=== PATIENT | female | born 1960 | race Caucasian/White ===

== ENCOUNTER 2017-03-12 12:18 | Emergency (ER) | payer MEDICARE, OTHER ==
[~2017-03-12] VITALS: Ht 177.8 cm; Wt 62.0 kg
[~2017-03-12 12:18] MED LIST: MORP30SU PO; MSIR15 PO
[2017-03-12 12:20] VITALS: BP 138/82; PULSE 104; RESP 16; TEMP 98.4; O2SAT 94
[2017-03-12] MEDS ORDERED: IBUP1TAB7 PO (12:39)
[2017-03-12] MEDS ORDERED: TRAZ100T10 PO (12:39)
[2017-03-12] MEDS ORDERED: TYLE325T PO (12:39)
--- NOTE | 2017-03-12 12:45 | PD ---
HPI Chief Complaint: Lump, Cyst, Hernia Time Seen by Provider: 12:45 Travel History International Travel<30 days: No Contact w/Intl Traveler<30days: No Traveled to known affect area: No History of Present Illness HPI 56-year-old female presents to emergency department complaining of a lump to her right armpit/ outer breast area she noticed one week ago. 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 Denies fever, vomiting. Denies drainage from the site. Has been taking Tylenol and ibuprofen for symptom management. Rates pain 8/10. Describes as a throbbing sensation. Pain is worse with movement of the right arm and palpation. Pain is decreased with movement of the right arm. Allergies to sulfa. Has no other medical complaints. Does not have an established primary care provider at this time. No other modifying factors or associated signs and symptoms. PFSH Past Medical History Heart Rhythm Problems: Yes Cardiovascular Problems: Yes (SVT) ?: Not Past Surgical History Cardiac Surgery: Yes (SVT ABLATION) Hysterectomy: Yes Social History Alcohol Use: No Tobacco Use: Yes Substance Use: No Allergies-Medications (Allergen,Severity, Reaction): Coded Allergies: Sulfa (Sulfonamide Antibiotics) (Unverified Allergy, Severe, 03/12/17) Reported Meds & Prescriptions Reported Meds & Active Scripts Active Clindamycin (Clindamycin HCl) 150 Mg Cap 450 Mg PO Q6H 10 Days Doxycycline Hyclate 100 Mg Cap 100 Mg PO DAILY 10 Days Reported Tylenol (Acetaminophen) 325 Mg Tab 650 Mg PO Q4H PRN Trazodone (Trazodone HCl) 100 Mg Tablet 100 Mg PO HS Ibuprofen 800 Mg Tab 800 Mg PO Q8H PRN Review of Systems Except as stated in HPI: all other systems reviewed are Neg Physical Exam Narrative GENERAL: Well-nourished, well-developed female patient, in no acute distress; afebrile, nontoxic-appearing SKIN: There is an indurated area to the right outer axillary/outer breast area which measures about 2 cm in diameter. It is nonfluctuant and there is no pointing or drainage. There is a zone of inflammation around it but no lymphangitis. HEAD: Atraumatic. Normocephalic. EYES: Pupils equal and round. No scleral icterus. No injection or drainage. ENT: Mucosa pink and moist. Airway patent. NECK: Trachea midline. CARDIOVASCULAR: Regular rate. RESPIRATORY: No accessory muscle use. GASTROINTESTINAL: Flat. MUSCULOSKELETAL: No obvious deformities. No clubbing. No cyanosis. No edema. NEUROLOGICAL: Awake and alert. Oriented 3. No obvious cranial nerve deficits. Motor grossly within normal limits. Normal speech. PSYCHIATRIC: Appropriate mood and affect; insight and judgment normal. Data Data Last Documented VS Vital Signs Date Time Temp Pulse Resp B/P (MAP) Pulse Ox O2 Delivery O2 Flow Rate FiO2 03/12/17 12:40 17 03/12/17 12:20 98.4 104 138/82 (100) 94 Orders Orders Ed Discharge Order (03/12/17 12:54) [facility] Medical Decision Making Medical Screen Exam Complete: Yes Emergency Medical Condition: Yes Medical Record Reviewed: Yes Differential Diagnosis Abscess, cellulitis, MRSA Narrative Course 56-year-old female with cellulitis to the right axillary, outer breast area. History of MRSA and takes doxycycline daily. Patient is afebrile and nontoxic appearing. Denies fever, vomiting. Dr. Medley evaluated patient and recommends the patient to return to emergency Department in 2 days for reevaluation and to increase doxycycline to 100 mg twice daily and add clindamycin. Doxycycline and clindamycin prescribed for home. Instructed patient to return to the emergency department in 48 hours for reevaluation the patient verbalized understanding and agreement. Instructed patient to follow up with primary care provider. Patient verbalizes understanding and agreement with treatment plan. Patient is medically cleared and stable for discharge. Discussed reasons to return to the emergency department. Patient agrees with treatment plan. The patients vital signs are stable and the patient is stable for outpatient follow- up and treatment. Patient discharged home, stable and in no acute distress. Diagnosis Primary Impression: Cellulitis of right axilla Referrals: [facility] Primary Care Physician Patient Instructions: Cellulitis (ED), General Instructions Additional Instructions: Complete full course of antibiotics; increased doxycycline to 100 mg twice a day ; and take clindamycin as prescribed Warm compresses to the affected area Keep area clean and dry Ibuprofen or Tylenol as directed and as needed for pain and inflammation Return to the emergency department in 48 hours for recheck Follow-up with primary care provider Return to emergency department immediately with worsening of symptoms Med/Other Pt SpecificInfo: Prescription(s) given Scripts Clindamycin (Clindamycin) 150 Mg Cap 450 MG PO Q6H for Infection for 10 Days, #120 CAP 0 Refills Prov: Lali Snyder 03/12/17 Doxycycline Hyclate (Doxycycline Hyclate) 100 Mg Cap 100 MG PO DAILY for Infection for 10 Days, #10 CAP 0 Refills Prov: Lali Snyder 03/12/17 Disposition: 01 DISCHARGE HOME Condition: Stable Lali Snyder Mar 12, 2017 12:45
[2017-03-12] MEDS ORDERED: CLIN150C14 PO ×2 (12:51→12:53)
[2017-03-12] MEDS ORDERED: DOXY100C PO ×2 (12:51→12:53)
[2017-03-12 13:19] VITALS: BP 150/72
== END 2017-03-12 13:35 | disposition home or self-care (01) ==
LOC: NEPD 12:18
DX: L03.111 Cellulitis of right axilla (principal); Z72.0 Tobacco use
CPT/HCPCS: 99284

== ENCOUNTER 2017-04-03 12:13 | Emergency (ER) | payer MEDICARE, OTHER ==
[~2017-04-03] VITALS: Ht 175.3 cm; Wt 60.0 kg
[~2017-04-03 12:13] MED LIST changes: +CLIN150C14 PO; +DOXY100C PO; +IBUP1TAB7 PO; -MORP30SU PO; -MSIR15 PO; +TRAZ100T10 PO; +TYLE325T PO
--- NOTE | 2017-04-03 12:34 | PD ---
HPI Chief Complaint: Wound/Suture/Staple Re-Check Time Seen by Provider: 12:22 Travel History International Travel<30 days: No Contact w/Intl Traveler<30days: No Traveled to known affect area: No History of Present Illness HPI 56-year-old female presents to the emergency department for evaluation of a cyst in the right axillary region. States she was here previously and received 2 antibiotics for this. Patient has not followed up with a primary care physician as discussed last visit on March 12. Patient states that currently the cyst has decreased in size but feels like "there is a hole" in her armpit. Area is tender to palpation denies drainage. Denies IV drug use or any other illicit drugs. Patient states that "she does not have a shoulder joint" and is unable to move her right shoulder. Patient denies fevers but feels "very cold" . Overall says that she feels better than previously. She continues to take doxycycline daily. Patient is here with mother today. PFSH Past Medical History Heart Rhythm Problems: Yes Cardiovascular Problems: Yes (SVT) ?: Not Past Surgical History Cardiac Surgery: Yes (SVT ABLATION) Hysterectomy: Yes Social History Alcohol Use: No Tobacco Use: Yes Substance Use: No Allergies-Medications (Allergen,Severity, Reaction): Coded Allergies: Sulfa (Sulfonamide Antibiotics) (Unverified Allergy, Severe, 03/12/17) Reported Meds & Prescriptions Reported Meds & Active Scripts Active Doxycycline Hyclate 100 Mg Cap 100 Mg PO DAILY 10 Days Reported Tylenol (Acetaminophen) 325 Mg Tab 650 Mg PO Q4H PRN Trazodone (Trazodone HCl) 100 Mg Tablet 100 Mg PO HS Ibuprofen 800 Mg Tab 800 Mg PO Q8H PRN Review of Systems Except as stated in HPI: all other systems reviewed are Neg Physical Exam Narrative GENERAL: Well-nourished, well-developed patient. SKIN: Focused skin assessment warm/dry. HEAD: Normocephalic. EYES: No scleral icterus. No injection or drainage. NECK: Supple, trachea midline. No JVD or lymphadenopathy. CARDIOVASCULAR: Regular rate and rhythm without murmurs, gallops, or rubs. RESPIRATORY: Breath sounds equal bilaterally. No accessory muscle use. GASTROINTESTINAL: Abdomen soft, non-tender, nondistended. Right axilla- round cyst along the pectoralis muscle non-mobile and tender to palpation. No obvious puncta, erythema, edema, or lymphangitic Spread. Similar cysts along bilateral axilla. MUSCULOSKELETAL: No cyanosis, or edema. BACK: Nontender without obvious deformity. No CVA tenderness. Data Data Orders Orders Ed Discharge Order (04/03/17 12:47) MDM Medical Decision Making Medical Screen Exam Complete: Yes Emergency Medical Condition: Yes Differential Diagnosis right axillary abscess vs cyst vs mass vs hydradenitis suppurativa Narrative Course 56-year-old female presents to the emergency department for evaluation of a cyst in the right axillary region. States she was here previously and received 2 antibiotics for this. Patient has not followed up with a primary care physician as discussed last visit on March 12. Patient states that currently the cyst has decreased in size but feels like "there is a hole" in her armpit. Area is tender to palpation denies drainage. Denies IV drug use or any other illicit drugs. Patient states that "she does not have a shoulder joint" and is unable to move her right shoulder. Patient denies fevers but feels "very cold" . Overall says that she feels better than previously. She continues to take doxycycline daily. Patient is here with mother today. Vital Signs stable Physical exam- multiple wounds over arms. multiple cysts along axilla and tail breast tissue. I did not perform a complete breast exam as her tenderness was focused in the axilla and she denied any concerns about her breast. I did not appreciate the 'hole' pt describes. I asked the patient when she last had a mammogram and she unable to tell me. I STRONGLY advised her to follow up with her primary care physician and get a mammogram. My findings were concerning and I expressedthem to the pt. Because of her chief complaint and improving symptoms, I advised pt follow up with PCP as this is more appropriate at this point. There was no evidence of infectious or acute process. I discussed my findings with Dr. Schmid, my attending. Because of the chronicity, pt needs to follow up as outpatient. Pt understood and will comply. Advised to return for worsening symptoms. Diagnosis Primary Impression: Axillary mass Qualified Codes: R22.31 - Localized swelling, mass and lump, right upper limb [facility] Additional Instructions: Apply warm compresses to the axilla. Follow-up with primary care within 2-3 days. You have been given information for [employer] Continue medications as prescribed. It is imperative he follow up with primary care for definitive treatment. If your symptoms persist or worsen return to the emergency department Disposition: 01 DISCHARGE HOME Condition: Stable Radha Molina Apr 03, 2017 12:34
== END 2017-04-03 13:16 | disposition home or self-care (01) ==
LOC: NEPD 12:13
DX: R22.31 Localized swelling, mass and lump, right upper limb (principal); Z72.0 Tobacco use; Z88.2 Allergy status to sulfonamides; Z79.899 Other long term (current) drug therapy
CPT/HCPCS: 99282

== ENCOUNTER → 2017-05-05 | Outpatient (CLI) | payer MEDICARE, OTHER ==
[~2017-05-05] MED LIST changes: -CLIN150C14 PO
[2017-05-05 10:50] LABS: AUTOMATED NEUTROPHIL # 4.2 TH/MM3 (1.8-7.7); BASOPHIL # 0.1 TH/MM3 (0-0.2); BASOPHIL % 0.7 % (0.0-2.0); EOSINOPHIL # 0.3 TH/MM3 (0-0.4); EOSINOPHIL % 4.6 % (0.0-4.0); HEMATOCRIT 33.3 % (35.0-46.0); HEMO FLAGS DIFF FINAL; LYMPH % 32.4 % (9.0-44.0); LYMPHOCYTE # 2.4 TH/MM3 (1.0-4.8); MEAN CELL VOLUME 79.1 FL (80.0-100.0); MEAN CORPUSCULAR HEMOGLOBIN 25.2 PG (27.0-34.0); MEAN CORPUSCULAR HGB CONC 31.9 % (32.0-36.0); MONO % 6.6 % (0.0-8.0); NEUT % 55.7 % (16.0-70.0); PLATELET COUNT 563 TH/MM3 (150-450); RED BLOOD COUNT 4.21 MIL/MM3 (4.00-5.30); RED CELL DISTRIBUTION WIDTH 17.4 % (11.6-17.2); WHITE BLOOD COUNT 7.6 TH/MM3 (4.0-11.0)
[2017-05-05 11:19] LABS: ALT (GPT) 14 U/L (10-53); ANION GAP 9 MEQ/L (5-15); AST (GOT) 22 U/L (15-37); BICARBONATE 25.7 MEQ/L (21.0-32.0); BLOOD UREA NITROGEN 17 MG/DL (7-18); CHLORIDE 102 MEQ/L (98-107); GLOMERULAR FILTRATION RATE 70 ML/MIN (>89); GLUCOSE,FASTING 143 MG/DL (74-99); POTASSIUM 3.9 MEQ/L (3.5-5.1); SODIUM (NA) 137 MEQ/L (136-145)
[2017-05-05 11:29] LABS: ALKALINE PHOSPHATASE 144 U/L (45-117); HDL CHOLESTEROL 37.9 MG/DL (40.0-60.0); LDL CHOLESTEROL 103 MG/DL (0-99); THYROXINE (T4) 9.5 MCG/DL (4.8-13.9); TOTAL BILIRUBIN ADULT 0.2 MG/DL (0.2-1.0)
[2017-05-05 16:32] LABS: HEMOGLOBIN A1a 1.1 %; HEMOGLOBIN Ao 83.7 %; HEMOGLOBIN LA1C 2.6 %
== END ==
LOC: CLAB 10:18
PROVIDERS: ATTEND Family Medicine
DX: I10 Essential (primary) hypertension (principal); E10.8 Type 1 diabetes mellitus with unspecified complications; E55.9 Vitamin D deficiency, unspecified; E78.2 Mixed hyperlipidemia; E03.8 Other specified hypothyroidism; Z79.899 Other long term (current) drug therapy
CPT/HCPCS: 36415; 80053; 80061; 82306; 83036; 84436; 84443; 84480; 85025

== ENCOUNTER 2017-05-24 12:11 | Observation (INO) | payer MEDICARE, OTHER ==
[~2017-05-24] VITALS: Ht 177.8 cm; Wt 62.5 kg
[2017-05-24 12:14] VITALS: BP 140/90; PULSE 108; RESP 22; TEMP 97.8; O2SAT 100
--- NOTE | 2017-05-24 13:04 | PD ---
Physical Exam Time Seen by Provider: 13:00 Narrative 56yo F tailbone pain and R hip pain after falling approximately 12 feet from her house roof today. 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 Denies hitting head, LOC, neck pain. Denies chest pain, SOB. Denies vomiting. Denies anticoagulant therapy. Patient seen in triage. VS reviewed. Patient taken to medical bed. See next providers note for final patient disposition. Data Data Last Documented VS Vital Signs Date Time Temp Pulse Resp B/P (MAP) Pulse Ox O2 Delivery O2 Flow Rate FiO2 05/24/17 12:14 97.8 108 22 140/90 (107) 100 Room Air MDM Supervised Visit with GARCIA: Lali Dial May 24, 2017 13:04
[2017-05-24] MEDS ORDERED: oxyCODONE/ACETAMINOPHEN 5 MG/325 MG TAB PO ONE (13:30)
[2017-05-24 13:50] VITALS: BP 142/89; PULSE 97; RESP 19; O2SAT 97
--- NOTE | 2017-05-24 14:07 | RADRPT ---
EXAM DATE/TIME: 05/24/2017 13:33 [facility] COMPARISON: No previous studies available for comparison. INDICATIONS : Fell 12 feet from roof, lower back and tailbone pain. RADIATION DOSE: 15.08 CTDIvol (mGy) MEDICAL HISTORY : Cardiovascular disease. Irregular heart rate. SURGICAL HISTORY : Hysterectomy. Cardiac ablation ENCOUNTER: Initial ACUITY: 1 day PAIN SCALE: 10/10 LOCATION: low back TECHNIQUE: Volumetric scanning of the lumbar spine was performed. Multiplanar reconstructions in the sagittal, coronal and oblique axial planes were performed. Using automated exposure control and adjustment of the mA and/or kV according to patient size, radiation dose was kept as low as reasonably achievable t o obtain optimal diagnostic quality images. DICOM format image data is available electronically for review and comparison. FINDINGS: VERTEBRAE: Normal vertebral body height. Degenerative disc changes are present at the L1-2 and L2-3 levels with disc space narrowing and hypertrophic change. ALIGNMENT: No evidence of subluxation. The axial images again demonstrate that the lower thoracic and lumbar vertebral bodies and posterior elements are intact with mild scoliosis. Degenerative disc changes are again noted at the L1-2 and L2 -3 levels with disc osteophyte complexes. There is a comminuted fracture deformity involving the righ t sacrum with multiple fracture lines anteriorly. This extends to the inferior lateral sacrum into th e sacroiliac joint. There is a more subtle nondisplaced fracture involving the left sacral which exte nds obliquely. The iliac wings are intact in appearance. Coccyx is intact as well. The sacroiliac pascual nts are congruent. There is mild scoliosis. CONCLUSION: 1. Bilateral sacral fractures right greater than left. 2. The lumbar vertebral bodies in lower thoracic spine is intact. 3. Mild scoliosis and degenerative disc change. Alejo Fam MD on May 24, 2017 at 13:59 Board Certified Radiologist. This report was verified electronically.
--- NOTE | 2017-05-24 14:15 | RADRPT ---
EXAM DATE/TIME: 05/24/2017 13:54 [facility] COMPARISON: CT LUMBAR SPINE W/O CONTRAST, May 24, 2017, 13:33. INDICATIONS : Right side pelvis pain after fall. Sacral fractures seen on lumbar spine CT MEDICAL HISTORY : None. SURGICAL HISTORY : None. ENCOUNTER: Initial ACUITY: 1 day PAIN SCORE: 10/10 LOCATION: Right Pelvis FINDINGS: A single frontal view of the pelvis was obtained and demonstrates subtle trabecular distortion on the lateral right sacral ala consistent with the known fractures seen on the lumbar CT. The left sacral fracture is not well delineated. The hips are intact and the pubic rami are within normal limits. The re is mild osteopenia. The bowel gas pattern appears unremarkable. The bony pelvic ring is intact. B wilberto mineralization is normal. The soft tissues are intact. CONCLUSION: 1. Visualization of the known right sacral fractures. 2. The known subtle left sacral fracture is not well-visualized. Alejo Fam MD on May 24, 2017 at 14:11 Board Certified Radiologist. This report was verified electronically.
[2017-05-24] MEDS ORDERED: HYDROmorphone HCL PF 1 MG/ML VIAL IV PUSH ONE (14:45)
[2017-05-24 15:31] LABS: AUTOMATED NEUTROPHIL # 10.3 TH/MM3 (1.8-7.7); BASOPHIL % 0.1 % (0.0-2.0); EOSINOPHIL # 0.1 TH/MM3 (0-0.4); EOSINOPHIL % 0.7 % (0.0-4.0); HEMATOCRIT 36.1 % (35.0-46.0); HEMOGLOBIN 11.9 GM/DL (11.6-15.3); LYMPH % 19.4 % (9.0-44.0); LYMPHOCYTE # 2.6 TH/MM3 (1.0-4.8); MEAN CORPUSCULAR HEMOGLOBIN 25.3 PG (27.0-34.0); MEAN CORPUSCULAR HGB CONC 32.8 % (32.0-36.0); MEAN PLATELET VOLUME 6.5 FL (7.0-11.0); MONO % 4.2 % (0.0-8.0); MONOCYTE # 0.6 TH/MM3 (0-0.9); NEUT % 75.6 % (16.0-70.0); PLATELET COUNT 541 TH/MM3 (150-450); RED BLOOD COUNT 4.69 MIL/MM3 (4.00-5.30); RED CELL DISTRIBUTION WIDTH 16.8 % (11.6-17.2); WHITE BLOOD COUNT 13.6 TH/MM3 (4.0-11.0)
[2017-05-24 15:46] LABS: ALBUMIN 3.9 GM/DL (3.4-5.0); ALT (GPT) 20 U/L (10-53); AST (GOT) 20 U/L (15-37); BICARBONATE 26.6 MEQ/L (21.0-32.0); BLOOD UREA NITROGEN 11 MG/DL (7-18); CALCIUM 9.7 MG/DL (8.5-10.1); CHLORIDE 99 MEQ/L (98-107); CREATININE 0.67 MG/DL (0.50-1.00); GLOMERULAR FILTRATION RATE 91 ML/MIN (>89); GLUCOSE,RANDOM 90 MG/DL (74-106); SODIUM (NA) 134 MEQ/L (136-145)
[2017-05-24 15:48] LABS: ALKALINE PHOSPHATASE 204 U/L (45-117); TOTAL BILIRUBIN ADULT 0.4 MG/DL (0.2-1.0); TOTAL PROTEIN 9.6 GM/DL (6.4-8.2)
--- NOTE | 2017-05-24 15:58 | PD ---
HPI Chief Complaint: Fall Time Seen by Provider: 13:16 Travel History International Travel<30 days: No Contact w/Intl Traveler<30days: No Traveled to known affect area: No History of Present Illness HPI Patient is a 56 year old female who comes in after she fell off a roof. She says she was adjusting the antenna on her roof and she was trying to come down and missed the ladder. She says she landed on her backside. She says she was unable to get up and walk and her friend had to carry her. She complains of pain to her low back and buttocks. She adamantly denies hitting her head. She denies any loss of consciousness. She denies any pain to her chest or upper extremities. She denies pain to her lower legs. Any movement makes her pain worse. She has not taken anything for her symptoms. [facility] Past Medical History Arthritis: Yes Heart Rhythm Problems: Yes Cardiovascular Problems: Yes (SVT) ?: Not Past Surgical History Cardiac Surgery: Yes (SVT ABLATION) Hysterectomy: Yes Social History Alcohol Use: No Tobacco Use: Yes (packevery two days ) Substance Use: No Allergies-Medications (Allergen,Severity, Reaction): Coded Allergies: Sulfa (Sulfonamide Antibiotics) (Unverified Allergy, Severe, 05/24/17) Reported Meds & Prescriptions Reported Meds & Active Scripts Active Review of Systems Except as stated in HPI: all other systems reviewed are Neg General / Constitutional: No: Fever, Chills HENT: No: Headaches, Lightheadedness Cardiovascular: No: Chest Pain or Discomfort Respiratory: No: Shortness of Breath Gastrointestinal: No: Nausea, Vomiting Genitourinary: No: Flank Pain Musculoskeletal: Positive: Pain, No: Edema Skin: No Rash, No Change in Pigmentation, No Lesions Neurologic: No: Weakness, Dizziness Physical Exam Narrative GENERAL: Awake and alert, in no acute distress. SKIN: Focused skin assessment warm/dry. No wounds or signs of trauma. HEAD: Atraumatic. Normocephalic. EYES: Pupils equal and round. No scleral icterus. Extraocular movements intact. ENT: Mucous membranes pink and moist. NECK: Trachea midline. No JVD. No cervical spine tenderness. CARDIOVASCULAR: Regular rate and rhythm. No murmur appreciated. No chest wall tenderness. RESPIRATORY: No accessory muscle use. Clear to auscultation. Breath sounds equal bilaterally. GASTROINTESTINAL: Abdomen soft, non-tender, nondistended. MUSCULOSKELETAL: No obvious deformities. No clubbing. No cyanosis. No edema. Tender to palpation of bilateral sacroiliac areas. Pain with movement of both legs. NEUROLOGICAL: Awake and alert. No obvious cranial nerve deficits. Motor grossly within normal limits. Normal speech. PSYCHIATRIC: Appropriate mood and affect; insight and judgment normal. Data Data Last Documented VS Vital Signs Date Time Temp Pulse Resp B/P (MAP) Pulse Ox O2 Delivery O2 Flow Rate FiO2 05/24/17 13:50 97 19 142/89 (106) 97 Room Air 05/24/17 12:14 97.8 Orders Orders Oxycodone-Acetamin 5-325 Mg (Percocet (05/24/17 13:30) Ct Lumb Spine W/O Contrast (05/24/17 ) Pelvis, Ap Only (Routine) (05/24/17 ) Iv Access Insert/Monitor (05/24/17 14:37) Complete Blood Count With Diff (05/24/17 14:37) Comprehensive Metabolic Panel (05/24/17 14:37) Hydromorphone Pf Inj (Dilaudid Pf Inj) (05/24/17 14:45) Admit Order (Ed Use Only) (05/24/17 ) Labs Laboratory Tests Test 05/24/17 15:15 White Blood Count 13.6 TH/MM3 Red Blood Count 4.69 MIL/MM3 Hemoglobin 11.9 GM/DL Hematocrit 36.1 % Mean Corpuscular Volume 77.0 FL Mean Corpuscular Hemoglobin 25.3 PG Mean Corpuscular Hemoglobin Concent 32.8 % Red Cell Distribution Width 16.8 % Platelet Count 541 TH/MM3 Mean Platelet Volume 6.5 FL Neutrophils (%) (Auto) 75.6 % Lymphocytes (%) (Auto) 19.4 % Monocytes (%) (Auto) 4.2 % Eosinophils (%) (Auto) 0.7 % Basophils (%) (Auto) 0.1 % Neutrophils # (Auto) 10.3 TH/MM3 Lymphocytes # (Auto) 2.6 TH/MM3 Monocytes # (Auto) 0.6 TH/MM3 Eosinophils # (Auto) 0.1 TH/MM3 Basophils # (Auto) 0.0 TH/MM3 CBC Comment DIFF FINAL Differential Comment Blood Urea Nitrogen 11 MG/DL Creatinine 0.67 MG/DL Random Glucose 90 MG/DL Total Protein 9.6 GM/DL Albumin 3.9 GM/DL Calcium Level 9.7 MG/DL Alkaline Phosphatase 204 U/L Aspartate Amino Transf (AST/SGOT) 20 U/L Alanine Aminotransferase (ALT/SGPT) 20 U/L Total Bilirubin 0.4 MG/DL Sodium Level 134 MEQ/L Potassium Level 3.9 MEQ/L Chloride Level 99 MEQ/L Carbon Dioxide Level 26.6 MEQ/L Anion Gap 8 MEQ/L Estimat Glomerular Filtration Rate 91 ML/MIN [facility] Medical Decision Making Medical Screen Exam Complete: Yes Emergency Medical Condition: Yes Medical Record Reviewed: Yes Differential Diagnosis Lumbar spine fracture versus pelvic fracture versus contusion Narrative Course Patient is a 56-year-old female comes in after she fell off a roof. Exam shows tenderness to both sacroiliac areas. IV established, labs sent. Patient given pain medicine. CT of the lumbar spine performed, shows 2 sacral fractures. I spoke with Dr. Polanco of orthopedics, who suggests pain control and weightbearing as tolerated. Isn't currently is unable to walk due to pain. She is given a dose of Dilaudid. She'll be admitted for further management. Diagnosis Primary Impression: Closed sacral fracture Qualified Codes: S32.10XA - Unspecified fracture of sacrum, initial encounter for closed fracture Admitting Information Admitting Physician Requests: Observation Scripts Commode 3-in-1 (Commode 3-in-1) 1 Mis Mis EA .ROUTE DIRECTED, #1 0 Refills Prov: Ponce Quintero MD 05/25/17 Walker with Front Wheels (Walker with Front Wheels) 1 Mis Mis EA .ROUTE DIRECTED, #1 0 Refills Prov: Ponce Quintero MD 05/25/17 Oxycodone ER (Oxycontin) 10 Mg Tab 10 MG PO Q12HR for Pain Management, #14 TAB 0 Refills Prov: Ponce Quintero MD 05/25/17 Oxycodone-Acetaminophen (Percocet) 5-325 mg Tab 1-2 TAB PO Q4H Y for PAIN, #42 TAB 0 Refills Prov: Ponce Quintero MD 05/25/17 Philly Saxena MD May 24, 2017 15:58
[2017-05-24 16:06] VITALS: BP 144/69; PULSE 74; RESP 15; O2SAT 97
[2017-05-24] MEDS ORDERED: ONDANSETRON HCL 4 MG/2 ML VIAL IVP PRN (16:45)
[2017-05-24] MEDS ORDERED: BISACODYL 10 MG SUPP RECTAL PRN (16:45)
[2017-05-24] MEDS ORDERED: HYDROmorphone HCL PF 1 MG/ML VIAL IV PUSH PRN (16:45)
[2017-05-24] MEDS ORDERED: SENNOSIDES 8.6 MG TAB PO PRN (16:45)
[2017-05-24] MEDS ORDERED: LACTULOSE SYRUP 20 GM/30 ML CUP PO PRN (16:45)
[2017-05-24] MEDS ORDERED: ACETAMINOPHEN 325 MG TAB PO PRN (16:45)
[2017-05-24] MEDS ORDERED: SODIUM CHLORIDE 0.9% FLUSH 10 ML FLUSH IV FLUSH PRN (16:45)
[2017-05-24] MEDS ORDERED: ENALAPRIL MALEATE 2.5 MG TAB PO ONE (16:45)
[2017-05-24] MEDS ORDERED: MAGNESIUM HYDROXIDE SUSP 30 ML CUP PO PRN (16:45)
[2017-05-24] MEDS ORDERED: NALOXONE HCL 0.4 MG/ML AMP IV PUSH PRN (16:45)
--- NOTE | 2017-05-24 16:48 | HHI.HP ---
[facility] No Primary Care Physician Admission Diagnosis Sacral fracture Diagnoses: Travel History International Travel<30 Days: No Contact w/Intl Traveler <30 Da: No Traveled to Known Affected Are: No History of Present Illness 56-year-old female with a past medical history significant for hypertension presents to the emergency department after suffering a fall from her room. The patient reports she was on her roof moving her antenna when she slipped and fell from her one story roof while trying to climb down the ladder. She reports she fell directly onto her buttock. She denies hitting anything else during the fall. Denies loss of consciousness or head trauma. She denies any pain to any of her extremities or her chest. She reports severe pain in her low back and buttock region. She reports this pain is exacerbated with movement. CT of the lumbar spine revealed bilateral sacral fractures. Review of Systems Denies fever or chills Denies blurry vision, otorrhea, rhinorrhea Denies sore throat and cough No chest pain, palpitations, shortness of breath No abdominal pain Denies constipation/diarrhea/nausea/vomiting Denies muscle pain/weakness No rashes Past Family Social History Past Medical History Hypertension (noncompliant with enalapril) Past Surgical History Hysterectomy Bilateral shoulder replacement Right arm surgery secondary to trauma Reported Medications Reported Meds & Active Scripts Active No Active Prescriptions or Reported Medications Allergies: Coded Allergies: Sulfa (Sulfonamide Antibiotics) (Unverified Allergy, Severe, 05/24/17) Family History Negative for diabetes mellitus or coronary artery disease Social History Smokes approximately a half a pack of cigarettes daily. Denies alcohol. Smokes cocaine. Physical Exam Vital Signs Vital Signs Date Time Temp Pulse Resp B/P (MAP) Pulse Ox O2 Delivery O2 Flow Rate FiO2 05/24/17 16:06 74 15 144/69 (94) 97 Room Air 05/24/17 13:50 97 19 142/89 (106) 97 Room Air 05/24/17 12:14 97.8 108 22 140/90 (107) 100 Room Air Physical Exam GENERAL: Thin female, appears older than stated age, lying in bed SKIN: No rashes, ecchymoses or lesions. Cool and dry. HEAD: Atraumatic. Normocephalic. No temporal or scalp tenderness. EYES: Pupils equal round and reactive. Extraocular motions intact. No scleral icterus. No injection or drainage. ENT: Nose without bleeding, purulent drainage or septal hematoma. Throat without erythema, tonsillar hypertrophy or exudate. Uvula midline. Airway patent. NECK: Trachea midline. No JVD or lymphadenopathy. Supple, nontender, no meningeal signs. CARDIOVASCULAR: Regular rate and rhythm without murmurs, gallops, or rubs. RESPIRATORY: Clear to auscultation in the anterior goddard. Breath sounds equal bilaterally. No wheezes, rales, or rhonchi. GASTROINTESTINAL: Abdomen soft, non-tender, nondistended. No hepato-splenomegaly , or palpable masses. No guarding. MUSCULOSKELETAL: Extremities without clubbing, cyanosis, or edema. No joint tenderness, effusion, or edema noted. No calf tenderness. NEUROLOGICAL: Awake and alert. Cranial nerves II through XII intact. Motor and sensory grossly within normal limits. Normal speech. Moves all 4 extremities spontaneously. Laboratory Laboratory Tests Test 05/24/17 15:15 White Blood Count 13.6 Red Blood Count 4.69 Hemoglobin 11.9 Hematocrit 36.1 Mean Corpuscular Volume 77.0 Mean Corpuscular Hemoglobin 25.3 Mean Corpuscular Hemoglobin Concent 32.8 Red Cell Distribution Width 16.8 Platelet Count 541 Mean Platelet Volume 6.5 Neutrophils (%) (Auto) 75.6 Lymphocytes (%) (Auto) 19.4 Monocytes (%) (Auto) 4.2 Eosinophils (%) (Auto) 0.7 Basophils (%) (Auto) 0.1 Neutrophils # (Auto) 10.3 Lymphocytes # (Auto) 2.6 Monocytes # (Auto) 0.6 Eosinophils # (Auto) 0.1 Basophils # (Auto) 0.0 CBC Comment DIFF FINAL Differential Comment Blood Urea Nitrogen 11 Creatinine 0.67 Random Glucose 90 Total Protein 9.6 Albumin 3.9 Calcium Level 9.7 Alkaline Phosphatase 204 Aspartate Amino Transf (AST/SGOT) 20 Alanine Aminotransferase (ALT/SGPT) 20 Total Bilirubin 0.4 Sodium Level 134 Potassium Level 3.9 Chloride Level 99 Carbon Dioxide Level 26.6 Anion Gap 8 Estimat Glomerular Filtration Rate 91 Result Diagram: 05/24/17 1515 05/24/17 1515 Caprini VTE Risk Assessment Caprini VTE Risk Assessment: No/Low Risk (score <= 1) Caprini Risk Assessment Model Point Value = 1 Point Value = 2 Point Value = 3 Point Value = 5 Age 41-60 Minor surgery BMI > 25 kg/m2 Swollen legs Varicose veins or History of unexplained or recurrent spontaneous Oral contraceptives or hormone replacement Sepsis (< 1 month) Serious lung disease, including pneumonia (< 1 month) Abnormal pulmonary function Acute myocardial infarction Congestive heart failure (< 1 month) History of inflammatory bowel disease Medical patient at bed rest Age 61-74 Arthroscopic surgery Major open surgery (> 45 min) Laparoscopic surgery (> 45 min) Malignancy Confined to bed (> 72 hours) Immobilizing plaster cast Central venous access Age >= 75 History of VTE Family history of VTE Factor V Leiden Prothrombin [id number] Lupus anticoagulant Anticardiolipin antibodies Elevated serum homocysteine Heparin-induced thrombocytopenia Other congenital or acquired thrombophilia Stroke (< 1 month) Elective arthroplasty Hip, pelvis, or leg fracture Acute spinal cord injury (< 1 month) Prophylaxis Regimen Total Risk Factor Score Risk Level Prophylaxis Regimen 0-1 Low Early ambulation 2 Moderate Order ONE of the following: *Sequential Compression Device (SCD) *Heparin 5000 units SQ BID 3-4 Higher Order ONE of the following medications: *Heparin 5000 units SQ TID *Enoxaparin/Lovenox 40 mg SQ daily (WT < 150 kg, CrCl > 30 mL/min) *Enoxaparin/Lovenox 30 mg SQ daily (WT < 150 kg, CrCl > 10-29 mL/min) *Enoxaparin/Lovenox 30 mg SQ BID (WT < 150 kg, CrCl > 30 mL/min) AND/OR *Sequential Compression Device (SCD) 5 or more Highest Order ONE of the following medications: *Heparin 5000 units SQ TID (Preferred with Epidurals) *Enoxaparin/Lovenox 40 mg SQ daily (WT < 150 kg, CrCl > 30 mL/min) *Enoxaparin/Lovenox 30 mg SQ daily (WT < 150 kg, CrCl > 10-29 mL/min) *Enoxaparin/Lovenox 30 mg SQ BID (WT < 150 kg, CrCl > 30 mL/min) AND *Sequential Compression Device (SCD) Assessment and Plan Assessment and Plan Assessment/plan: 1. Bilateral sacral fractures secondary to traumatic fall CT of the lumbar spine significant for bilateral sacral fractures right greater than the left No operative intervention Patient's pain remains uncontrolled, she will be admitted for pain control with IV medication in the hopes of transitioning to PO medication tomorrow PT consulted 2. Hypertension Patient is supposed to be on enalapril however she is noncompliant with this medication Starting enalapril 2.5 mg daily Clonidine prn 3. Cocaine abuse Cessation counseling provided FEN Heart healthy diet Electrolytes: monitor and replete prn SCDSusanne Gaytan MD May 24, 2017 16:48
[2017-05-24] MEDS ORDERED: cloNIDine HCL 0.1 MG TAB PO PRN (17:00)
[2017-05-24 17:58] VITALS: BP 137/88
[2017-05-24] MEDS: HYDROmorphone HCL PF 2 MG/ML VIAL IV PRN ×2 (18:45→23:23)
[2017-05-24 20:07] VITALS: BP 128/72; PULSE 84; RESP 18; TEMP 97.8; O2SAT 94
[2017-05-24] MEDS: DOCUSATE SODIUM 50 MG/SENNA 8.6 MG TAB PO SCH (21:35)
[2017-05-24] MEDS: SODIUM CHLORIDE 0.9% FLUSH 10 ML FLUSH IV FLUSH SCH (21:36)
[2017-05-24 23:14] VITALS: BP 122/78; PULSE 96; RESP 18; TEMP 98.6; O2SAT 94
[2017-05-25] MEDS ORDERED: HYDROmorphone HCL PF 2 MG/ML VIAL IV ONE (01:15)
[2017-05-25 04:19] VITALS: BP 141/62; PULSE 99; RESP 18; TEMP 99.3; O2SAT 95
[2017-05-25 06:10] LABS: BASOPHIL % 0.2 % (0.0-2.0); EOSINOPHIL # 0.3 TH/MM3 (0-0.4); EOSINOPHIL % 3.1 % (0.0-4.0); HEMATOCRIT 31.2 % (35.0-46.0); HEMOGLOBIN 10.1 GM/DL (11.6-15.3); LYMPH % 32.4 % (9.0-44.0); LYMPHOCYTE # 3.3 TH/MM3 (1.0-4.8); MEAN CELL VOLUME 78.1 FL (80.0-100.0); MEAN CORPUSCULAR HEMOGLOBIN 25.3 PG (27.0-34.0); MEAN CORPUSCULAR HGB CONC 32.4 % (32.0-36.0); MEAN PLATELET VOLUME 6.9 FL (7.0-11.0); MONO % 5.7 % (0.0-8.0); MONOCYTE # 0.6 TH/MM3 (0-0.9); NEUT % 58.6 % (16.0-70.0); PLATELET COUNT 502 TH/MM3 (150-450); RED BLOOD COUNT 3.99 MIL/MM3 (4.00-5.30); RED CELL DISTRIBUTION WIDTH 16.6 % (11.6-17.2); WHITE BLOOD COUNT 10.2 TH/MM3 (4.0-11.0)
[2017-05-25 06:25] LABS: BICARBONATE 24.9 MEQ/L (21.0-32.0); CALCIUM 8.3 MG/DL (8.5-10.1); CREATININE 0.96 MG/DL (0.50-1.00)
[2017-05-25] MEDS: HYDROmorphone HCL PF 2 MG/ML VIAL IV PRN (06:32)
[2017-05-25 08:00] VITALS: BP 117/71; PULSE 104; RESP 18; TEMP 99; O2SAT 95
[2017-05-25] MEDS: DOCUSATE SODIUM 50 MG/SENNA 8.6 MG TAB PO SCH (09:00)
[2017-05-25] MEDS ORDERED: ENALAPRIL MALEATE 2.5 MG TAB PO SCH (09:00)
[2017-05-25] MEDS ORDERED: oxyCODONE/ACETAMINOPHEN 5 MG/325 MG TAB PO PRN (09:15)
[2017-05-25] MEDS ORDERED: ACETAMINOPHEN/HYDROcodone 325 MG/10 MG TAB PO PRN (09:15)
[2017-05-25] MEDS ORDERED: POTASSIUM CHLORIDE 10 MEQ CONTROLLED RELEASE TAB PO ONE (09:15)
[2017-05-25] MEDS ORDERED: NALOXONE HCL 0.4 MG/ML AMP IV PUSH PRN (09:15)
[2017-05-25] MEDS ORDERED: POTASSIUM CHLOR 10 MEQ PREMIX 100 ML IV ONE (09:15)
[2017-05-25] MEDS: SODIUM CHLORIDE 0.9% FLUSH 10 ML FLUSH IV FLUSH SCH (11:25)
[2017-05-25] MEDS ORDERED: OXYC-103 PO (11:50)
[2017-05-25] MEDS ORDERED: PERC5TAB12 PO (11:50)
--- NOTE | 2017-05-25 11:51 | HHI.FF ---
Face to Face Verification Diagnosis: (1) Closed sacral fracture Physical Therapy Order: Evaluate and Treat Home Health Nursing Order: Medication education-adverse effect Cover Cutter Machine Order: To Evaluate: Living conditions/environment I have seen patient Amy Mane on 05/25/17. My clinical findings support the need for the requested home health care services because: Deconditioned w/ increased weakness I certify that my clinical findings support that this patient is homebound because: Unsafe to leave home unassisted Ponce Quintero MD May 25, 2017 11:51
[2017-05-25] MEDS ORDERED: COMMODE 3-IN-11 MIS (11:53)
[2017-05-25] MEDS ORDERED: WALKER WHEELS/F1 MIS (11:53)
[2017-05-25 12:00] VITALS: BP 112/66; PULSE 100; RESP 18; TEMP 99.5; O2SAT 100
[2017-05-25] MEDS ORDERED: oxyCODONE HCL 10 MG CONTROLLED RELEASE TAB PO ONE (12:00)
--- NOTE | 2017-05-25 15:31 | HHI.PR ---
Subjective Remarks Patient seen this morning. Says she is feeling all right. Pain still present, but controlled. Denies any chest pain or shortness of breath. Denies any nausea or vomiting. Objective Vital Signs Date Time Temp Pulse Resp B/P (MAP) Pulse Ox O2 Delivery O2 Flow Rate FiO2 05/25/17 12:00 99.5 100 18 112/66 (81) 100 05/25/17 08:00 99.0 104 18 117/71 (86) 95 05/25/17 04:19 99.3 99 18 141/62 (88) 95 05/24/17 23:53 18 05/24/17 23:14 98.6 96 18 122/78 (93) 94 05/24/17 20:07 97.8 84 18 128/72 (90) 94 05/24/17 17:58 83 16 137/88 (104) 98 05/24/17 16:06 74 15 144/69 (94) 97 Room Air I/O 05/24/17 05/24/17 05/24/17 05/25/17 05/25/17 05/25/17 07:00 15:00 23:00 07:00 15:00 23:00 Intake Total 360 ml 1053 ml 600 ml Balance 360 ml 1053 ml 600 ml Intake Oral 360 ml 480 ml 600 ml IV Total 573 ml # Voids 2 2 3 # Bowel Movements 0 0 0 Result Diagram: 05/25/17 0354 05/25/17 0354 Objective Remarks GENERAL: Patient sitting up in chair. Appears comfortable. Alert and oriented 3. SKIN: Warm and dry. HEAD: Normocephalic. EYES: No scleral icterus. No injection or drainage. NECK: Supple, trachea midline. No JVD. CARDIOVASCULAR: Regular rate and rhythm without murmurs, gallops, or rubs. RESPIRATORY: Breath sounds equal bilaterally. No accessory muscle use. GASTROINTESTINAL: Abdomen soft, non-tender, nondistended. MUSCULOSKELETAL: No cyanosis, or edema. Strength intact bilateral lower extremity. BACK: Nontender without obvious deformity. No CVA tenderness. A/P Assessment and Plan Assessment/plan: //Bilateral sacral fractures secondary to traumatic fall CT of the lumbar spine significant for bilateral sacral fractures right greater than the left No operative intervention Patient's pain remains uncontrolled, she will be admitted for pain control with IV medication in the hopes of transitioning to PO medication tomorrow PT consulted = Opioid pain meds ordered for 1 week. f/u primary care. Follow-up with orthopedics as outpatient. //Hypertension Patient is supposed to be on enalapril however she is noncompliant with this medication =bp septal double // Cocaine abuse -Cessation counseling provided. FEN Heart healthy diet Electrolytes: monitor and replete prn SCDs Discharge Planning Discharge home with home health. Follow-up orthopedics as outpatient. Ponce Quintero MD May 25, 2017 15:31
--- NOTE | 2017-05-25 15:33 | HHI.DS ---
Discharge Summary Admission Date May 24, 2017 at 15:58 Discharge Date: May 25, 2017 Admitting Diagnosis Sacral fracture (1) Closed sacral fracture ICD Code: S32.10XA - Unspecified fracture of sacrum, initial encounter for closed fracture Procedures No invasive procedures. Brief History - From Admission 56-year-old female with a past medical history significant for hypertension presents to the emergency department after suffering a fall from her room. The patient reports she was on her roof moving her antenna when she slipped and fell from her one story roof while trying to climb down the ladder. She reports she fell directly onto her buttock. She denies hitting anything else during the fall. Denies loss of consciousness or head trauma. She denies any pain to any of her extremities or her chest. She reports severe pain in her low back and buttock region. She reports this pain is exacerbated with movement. CT of the lumbar spine revealed bilateral sacral fractures. CBC/BMP: 05/25/17 0354 05/25/17 0354 Significant Findings Laboratory Tests Test 05/24/17 15:15 05/25/17 03:54 White Blood Count 13.6 TH/MM3 (4.0-11.0) Mean Corpuscular Volume 77.0 FL (80.0-100.0) 78.1 FL (80.0-100.0) Mean Corpuscular Hemoglobin 25.3 PG (27.0-34.0) 25.3 PG (27.0-34.0) Platelet Count 541 TH/MM3 (150-450) 502 TH/MM3 (150-450) Mean Platelet Volume 6.5 FL (7.0-11.0) 6.9 FL (7.0-11.0) Neutrophils (%) (Auto) 75.6 % (16.0-70.0) Neutrophils # (Auto) 10.3 TH/MM3 (1.8-7.7) Total Protein 9.6 GM/DL (6.4-8.2) Alkaline Phosphatase 204 U/L (45-117) Sodium Level 134 MEQ/L (136-145) 132 MEQ/L (136-145) Red Blood Count 3.99 MIL/MM3 (4.00-5.30) Hemoglobin 10.1 GM/DL (11.6-15.3) Hematocrit 31.2 % (35.0-46.0) Random Glucose 56 MG/DL (74-106) Calcium Level 8.3 MG/DL (8.5-10.1) Potassium Level 2.9 MEQ/L (3.5-5.1) Chloride Level 95 MEQ/L (98-107) Estimat Glomerular Filtration Rate 60 ML/MIN (>89) 25-Hydroxy Vitamin D Total 25.1 ng/ML (30-100) Imaging Last Impressions Pelvis X-Ray 05/24/17 0000 Signed Impressions: Service Date/Time: Wednesday, May 24, 2017 13:54 - CONCLUSION: 1. Visualization of the known right sacral fractures. 2. The known subtle left sacral fracture is not well-visualized. Alejo Fam MD Lumbar Spine CT 05/24/17 0000 Signed Impressions: Service Date/Time: Wednesday, May 24, 2017 13:33 - CONCLUSION: 1. Bilateral sacral fractures right greater than left. 2. The lumbar vertebral bodies in lower thoracic spine is intact. 3. Mild scoliosis and degenerative disc change. Alejo Fam MD Hospital Course Imaging on admission showed bilateral sacral fracture as above. She opted for conservative, nonoperative management. Patient received IV narcotics for pain control, transitioned to by mouth narcotics. She will follow-up with primary care, orthopedics as outpatient. She was also found to have hypokalemia with potassium 3.9. This was replaced. Magnesium within normal limits. Follow-up with primary care as outpatient. For problem-based summary from most recent progress note, please see below. Assessment/plan: //Bilateral sacral fractures secondary to traumatic fall CT of the lumbar spine significant for bilateral sacral fractures right greater than the left No operative intervention Patient's pain remains uncontrolled, she will be admitted for pain control with IV medication in the hopes of transitioning to PO medication tomorrow PT consulted = Opioid pain meds ordered for 1 week. f/u primary care. Follow-up with orthopedics as outpatient. //Hypertension Patient is supposed to be on enalapril however she is noncompliant with this medication =bp septal double // Cocaine abuse -Cessation counseling provided. FEN Heart healthy diet Electrolytes: monitor and replete prn SCDs Discharge Planning Discharge home with home health. Follow-up orthopedics as outpatient. Pt Condition on Discharge: Good Discharge Disposition: Disch w/ Home Health Serv Discharge Time: > 30 minutes Discharge Instructions DIET: Follow Instructions for: As Tolerated, No Restrictions Activities you can perform: Weight Bearing as Jackie Other Activity Instructions: use walker at all times. have supervision at all times while walking or standing. Follow up Referrals: Orthopedics - 1 Week with Cecelia Allen MD PCP Follow-up - 3-5 Days with [facility] New Medications: Commode 3-in-1 (Commode 3-in-1) 1 Mis Mis EA .ROUTE DIRECTED, #1 0 Refills Oxycodone ER (Oxycontin) 10 Mg Tab 10 MG PO Q12HR for Pain Management, #14 TAB 0 Refills Oxycodone-Acetaminophen (Percocet) 5-325 mg Tab 1-2 TAB PO Q4H PRN for PAIN, #42 TAB 0 Refills Walker with Front Wheels (Walker with Front Wheels) 1 Mis Mis EA .ROUTE DIRECTED, #1 0 Refills Ponce Quintero MD May 25, 2017 15:33
[2017-05-25] MEDS ORDERED: oxyCODONE HCL 10 MG CONTROLLED RELEASE TAB PO SCH (23:00)
== END 2017-05-25 17:17 | disposition home health service (06) ==
LOC: NEPE 12:11 → NEDA 15:58 → N06B 18:08
PROVIDERS: ADMIT Internal Medicine; ATTEND Internal Medicine
DX: S32.10XA Unspecified fracture of sacrum, initial encounter for closed fracture (principal); I10 Essential (primary) hypertension; F14.10 Cocaine abuse, uncomplicated; M51.36 Other intervertebral disc degeneration, lumbar region; M41.9 Scoliosis, unspecified; M85.80 Other specified disorders of bone density and structure, unspecified site; F17.210 Nicotine dependence, cigarettes, uncomplicated; Z91.19 Patient's noncompliance with other medical treatment and regimen; Z96.611 Presence of right artificial shoulder joint; Z96.612 Presence of left artificial shoulder joint; W13.2XXA Fall from, out of or through roof, initial encounter
CPT/HCPCS: 72131; 72170; 80048; 80053; 82306; 83735; 85025; 96365; 96366; 96375; 96376; 97161; 97167; 99285; G0378; G8987; G8988; J1170; J3480

== ENCOUNTER 2017-05-26 00:15 | Inpatient (IN) | payer MEDICARE, OTHER ==
[2017-05-26] VITALS (17 sets, daily range): BP systolic 82–144; BP diastolic 45–92; PULSE 13–140; RESP 14–34; TEMP 96.9–101.2; O2SAT 93–100
[~2017-05-26] VITALS: Ht 175.3 cm; Wt 61.3 kg
[~2017-05-26 00:15] MED LIST changes: +COMMODE 3-IN-11 MIS; -DOXY100C PO; -IBUP1TAB7 PO; +OXYC-103 PO; +PERC5TAB12 PO; -TRAZ100T10 PO; -TYLE325T PO; +WALKER WHEELS/F1 MIS
[2017-05-26] MEDS ORDERED: VANCOMYCIN INJ 950 MG in SODIUM CHLOR 0.9% 250 ML INJ 250 ML IV ONE (00:30)
[2017-05-26] MEDS ORDERED: KETOROLAC TROMETHAMINE 30 MG/ML (IVP) VIAL IV PUSH ONE (00:30)
[2017-05-26] MEDS ORDERED: PIPERACIL-TAZO 3.375 GM PREMIX 50 ML IV ONE (00:30)
[2017-05-26] MEDS ORDERED: ONDANSETRON HCL 4 MG/2 ML VIAL IV PUSH ONE (00:30)
[2017-05-26] MEDS ORDERED: SODIUM CHLOR 0.9% 1000 ML INJ 1,000 ML IV ONE (00:30)
[2017-05-26 00:49] LABS: BILIRUBIN, URINE NEG (NEG); BLOOD, URINE TRACE (NEG); GLUCOSE,URINE NEG (NEG); HYALINE CAST, URINE 16 /lpf (RARE); KETONE, URINE NEG (NEG); NITRITE,URINE NEG (NEG); URINE COLOR YELLOW (YELLW/STRAW); URINE LEUKOCYTE ESTERASE NEG (NEG)
[2017-05-26 00:53] LABS: AUTOMATED NEUTROPHIL # 12.2 TH/MM3 (1.8-7.7); BASOPHIL # 0.1 TH/MM3 (0-0.2); BASOPHIL % 0.4 % (0.0-2.0); EOSINOPHIL # 0.2 TH/MM3 (0-0.4); EOSINOPHIL % 1.3 % (0.0-4.0); HEMATOCRIT 30.7 % (35.0-46.0); HEMOGLOBIN 9.5 GM/DL (11.6-15.3); LYMPH % 19.7 % (9.0-44.0); LYMPHOCYTE # 3.5 TH/MM3 (1.0-4.8); MEAN CELL VOLUME 79.2 FL (80.0-100.0); MEAN CORPUSCULAR HEMOGLOBIN 24.6 PG (27.0-34.0); MEAN PLATELET VOLUME 6.4 FL (7.0-11.0); MONO % 10.3 % (0.0-8.0); MONOCYTE # 1.8 TH/MM3 (0-0.9); NEUT % 68.3 % (16.0-70.0); PLATELET COUNT 385 TH/MM3 (150-450); RED BLOOD COUNT 3.88 MIL/MM3 (4.00-5.30); RED CELL DISTRIBUTION WIDTH 16.9 % (11.6-17.2); WHITE BLOOD COUNT 17.9 TH/MM3 (4.0-11.0)
--- NOTE | 2017-05-26 00:53 | RADRPT ---
EXAM DATE/TIME: 05/26/2017 00:38 [place] COMPARISON: CHEST SINGLE AP, February 03, 2016, 4:26. INDICATIONS : Cough. MEDICAL HISTORY : None. SURGICAL HISTORY : None. ENCOUNTER: Initial ACUITY: 1 day PAIN SCORE: 0/10 LOCATION: Bilateral chest FINDINGS: A single view of the chest demonstrates the lungs to be symmetrically aerated without evidence of mas s, infiltrate or effusion. The cardiomediastinal contours are unremarkable. There are bilateral shou lder prostheses in place. CONCLUSION: No acute disease. Bakari Franklin MD on May 26, 2017 at 0:49 Board Certified Radiologist. This report was verified electronically.
[2017-05-26 00:58] LABS: INTERNATIONAL NORMALIZED RATIO 1.1 RATIO; PROTHROMBIN TIME - PATIENT 11.4 SEC (9.8-11.6)
[2017-05-26 01:08] LABS: LACTIC ACID SEPSIS PROTOCOL 2.7 mmol/L (0.4-2.0)
[2017-05-26] MEDS ORDERED: LORazepam 2 MG/ML VIAL IV PUSH ONE (01:15)
[2017-05-26] MEDS ORDERED: HALOPERIDOL LACTATE 5 MG/ML AMP IM ONE (01:15)
[2017-05-26 01:19] LABS: ALKALINE PHOSPHATASE 102 U/L (45-117); ALT (GPT) 12 U/L (10-53); AST (GOT) 32 U/L (15-37); BICARBONATE 18.2 MEQ/L (21.0-32.0); BLOOD UREA NITROGEN 13 MG/DL (7-18); CALCIUM 5.4 MG/DL (8.5-10.1); CHLORIDE 117 MEQ/L (98-107); CREATININE 0.66 MG/DL (0.50-1.00); GLOMERULAR FILTRATION RATE 93 ML/MIN (>89); GLUCOSE,RANDOM 59 MG/DL (74-106); LIPASE 27 U/L (73-393); MAGNESIUM 1.2 MG/DL (1.5-2.5); SODIUM (NA) 143 MEQ/L (136-145); TOTAL BILIRUBIN ADULT 0.4 MG/DL (0.2-1.0); TOTAL PROTEIN 5.1 GM/DL (6.4-8.2); TROPONIN I LESS THAN 0.02 NG/ML (0.02-0.05)
[2017-05-26 01:21] LABS: CALCIUM-PROTEIN CORRECTED 6.2 MG/DL (8.5-10.1)
--- NOTE | 2017-05-26 01:37 | PD ---
HPI . OD/ingestion Chief Complaint: OD/ Ingestion Time Seen by Provider: 00:17 Travel History International Travel<30 days: No Contact w/Intl Traveler<30days: No Traveled to known affect area: No History of Present Illness HPI 56-year-old female recently diagnosed with hip/pelvic fracture, discharged with supply of pain medications OxyContin, was found by with decreased responsiveness and shallow respirations prompting the 911 call. Upon EMS arrival, patient's noted she stopped breathing, however EMS noted the patient to be breathing on her own with sonorous respirations and pinpoint pupils. Narcan 0.4 mg administered, patient awakened, became combative. As per EMS, patient is eliciting psychotic features during transport, possibly responding to auditory hallucinations as well. Patient continues writhing & psychotic behavior in ED, noncontributory historian [facility] Past Medical History Narrative Medical past medical history reviewed Arthritis: Yes Heart Rhythm Problems: Yes Cardiovascular Problems: Yes (SVT) ?: Not Past Surgical History Cardiac Surgery: Yes (SVT ABLATION) Hysterectomy: Yes Social History Alcohol Use: No Tobacco Use: Yes (packevery two days ) Substance Use: No Allergies-Medications (Allergen,Severity, Reaction): Coded Allergies: Sulfa (Sulfonamide Antibiotics) (Unverified Allergy, Severe, 05/24/17) Reported Meds & Prescriptions Reported Meds & Active Scripts Active Commode 3-in-1 (Device) 1 Mis Mis Ea .ROUTE DIRECTED Walker with Front Wheels (Device) 1 Mis Mis Ea .ROUTE DIRECTED Oxycontin (Oxycodone HCl) 10 Mg Tab 10 Mg PO Q12HR Percocet (Oxycodone-Acetaminophen) 5-325 mg Tab 1-2 Tab PO Q4H PRN Narrative Medication Allergies medications reviewed Review of Systems ROS Limitations: Clinical Condition, Altered Mental Status General / Constitutional: Positive: Fever Physical Exam Narrative GENERAL: Awake and combative, writhing in the stretcher, psychotic behavior. Difficult exam SKIN: Warm and dry. Color is normal no diaphoresis cyanosis or pallor. Left buttocks excoriation skin lesions consistent with possible self injury and/or IV drug use HEAD: Atraumatic. Normocephalic. EYES: Pupils equal and round. No scleral icterus. No injection or drainage. ENT: No nasal bleeding or discharge. Mucous membranes pink and moist. NECK: Trachea midline. No JVD. Supple CARDIOVASCULAR: Tachycardia regular no obvious murmurs rubs or gallops appreciated. RESPIRATORY: No accessory muscle use. Clear to auscultation. Breath sounds equal bilaterally. GASTROINTESTINAL: Abdomen soft, non-tender, nondistended. Hepatic and splenic margins not palpable. MUSCULOSKELETAL: Extremities without clubbing, cyanosis, or edema. No obvious deformities. NEUROLOGICAL: Awake combative and psychotic. Moving all 4 extremities. Difficult exam PSYCHIATRIC: Acute psychosis. Difficult exam. Data Data Last Documented VS Vital Signs Date Time Temp Pulse Resp B/P (MAP) Pulse Ox O2 Delivery O2 Flow Rate FiO2 05/26/17 00:48 100 Room Air 05/26/17 00:16 101.2 140 34 140/92 (108) Orders Orders Sepsis Workup Initiated (05/26/17 ) Electrocardiogram (05/26/17 00:24) Complete Blood Count With Diff (05/26/17 00:24) Comprehensive Metabolic Panel (05/26/17 00:24) Prothrombin Time / Inr (Pt) (05/26/17:24) Act Partial Throm Time (Ptt) (05/26/17 00:24) Lactic Acid Sepsis Protocol (05/26/17 00:24) Magnesium (Mg) (05/26/17:24) Lipase (05/26/17 00:24) Ckmb (Isoenzyme) Profile (05/26/17 00:24) Troponin I (05/26/17 00:24) Urinalysis - C+S If Indicated (05/26/17 00:24) Influenzae A/B Antigen (05/26/17 00:24) Blood Culture (05/26/17 00:24) Chest, Single Ap (05/26/17 00:24) Blood Glucose (05/26/17 00:24) Ecg Monitoring (05/26/17 00:24) Iv Access Insert/Monitor (05/26/17 00:24) Oximetry (05/26/17:24) Oxygen Administration (05/26/17 00:24) Ondansetron Inj (Zofran Inj) (05/26/17 00:30) Ct Brain W/O Iv Contrast(Rout) (05/26/17 00:24) Ammonia (05/26/17 00:24) Piperacil-Tazo 3.375 Gm Premix (Zosyn 3. (05/26/17 00:30) Vancomycin Inj (Vancomycin Inj) (05/26/17 00:30) Ketorolac Inj (Toradol Inj) (05/26/17 00:30) Sodium Chlor 0.9% 1000 Ml Inj (Ns 1000 M (05/26/17 00:30) Lorazepam Inj (Ativan Inj) (05/26/17 01:15) Haloperidol Inj (Haldol Inj) (05/26/17 01:15) Drug Screen, Random Urine (05/26/17 01:05) CKMB (05/26/17 00:20) CKMB% (05/26/17 00:20) Calcium Gluconate Inj (Calcium Gluconate (05/26/17 02:00) Arterial Blood Gas (Abg) (05/26/17 ) Naloxone Inj (Narcan Inj) (05/26/17 03:15) Tylenol (Acetaminophen) (05/26/17 03:32) Dextrose 50% In Marquis (Vial) Inj (D50w (Vi (05/26/17 03:45) Admit Order (Ed Use Only) (05/26/17 03:34) Dextrose 5%-Lactated Ring Inj (D5-Lr Inj (05/26/17 03:45) Naloxone Inj (Narcan Inj) (05/26/17 03:45) Bedside Glucose Q1H (05/26/17 03:36) ^ Medication Admin Instruction (05/26/17 03:36) Notify Dr: Other (05/26/17 03:36) Potassium Chlor 40 Meq Premix (Kcl 40 Me (05/26/17 03:45) Potassium Chlor 20 Meq Premix (Kcl 20 Me (05/26/17 03:45) Potassium Chloride Eff (K-Lyte Cl Eff) (05/26/17 03:45) Potassium Chlor 40 Meq Premix (Kcl 40 Me (05/26/17 03:45) Potassium Chlor 20 Meq Premix (Kcl 20 Me (05/26/17 03:45) Magnesium Sulfate Inj (Magnesium Sulfate (05/26/17 03:45) Magnesium Oxide (Mag-Ox) (05/26/17 03:45) Magnesium Sulfate Inj (Magnesium Sulfate (05/26/17 03:45) Potassium Phosphate (K-Phos) (05/26/17 03:45) Sodium Phosphate Inj (Sodium Phosphate I (05/26/17 03:45) Potassium Phosphate (K-Phos) (05/26/17 03:45) Potassium Phosphate Inj (Potassium Phosp (05/26/17 03:45) Phosphorus (Po4) (05/26/17 03:36) Labs Laboratory Tests Test 05/26/17 00:20 05/26/17 00:30 05/26/17 00:35 05/26/17 03:05 White Blood Count 17.9 TH/MM3 Red Blood Count 3.88 MIL/MM3 Hemoglobin 9.5 GM/DL Hematocrit 30.7 % Mean Corpuscular Volume 79.2 FL Mean Corpuscular Hemoglobin 24.6 PG Mean Corpuscular Hemoglobin Concent 31.0 % Red Cell Distribution Width 16.9 % Platelet Count 385 TH/MM3 Mean Platelet Volume 6.4 FL Neutrophils (%) (Auto) 68.3 % Lymphocytes (%) (Auto) 19.7 % Monocytes (%) (Auto) 10.3 % Eosinophils (%) (Auto) 1.3 % Basophils (%) (Auto) 0.4 % Neutrophils # (Auto) 12.2 TH/MM3 Lymphocytes # (Auto) 3.5 TH/MM3 Monocytes # (Auto) 1.8 TH/MM3 Eosinophils # (Auto) 0.2 TH/MM3 Basophils # (Auto) 0.1 TH/MM3 CBC Comment DIFF FINAL Differential Comment Prothrombin Time 11.4 SEC Prothromb Time International Ratio 1.1 RATIO Activated Partial Thromboplast Time 30.6 SEC Blood Urea Nitrogen 13 MG/DL Creatinine 0.66 MG/DL Random Glucose 59 MG/DL Total Protein 5.1 GM/DL Albumin 2.0 GM/DL Calcium Level 5.4 MG/DL Magnesium Level 1.2 MG/DL Alkaline Phosphatase 102 U/L Aspartate Amino Transf (AST/SGOT) 32 U/L Alanine Aminotransferase (ALT/SGPT) 12 U/L Total Bilirubin 0.4 MG/DL Sodium Level 143 MEQ/L Potassium Level 4.0 MEQ/L Chloride Level 117 MEQ/L Carbon Dioxide Level 18.2 MEQ/L Anion Gap 8 MEQ/L Estimat Glomerular Filtration Rate 93 ML/MIN Protein Corrected Calcium 6.2 MG/DL Total Creatine Kinase 171 U/L Creatine Kinase MB 1.7 NG/ML Troponin I LESS THAN 0.02 NG/ML Lipase 27 U/L Urine Color YELLOW Urine Turbidity CLEAR Urine pH 6.0 Urine Specific [place] 1.014 Urine Protein 30 mg/dL Urine Glucose (UA) NEG mg/dL Urine Ketones NEG mg/dL Urine Occult Blood TRACE Urine Nitrite NEG Urine Bilirubin NEG Urine Urobilinogen LESS THAN 2.0 MG/DL Urine Leukocyte Esterase NEG Urine RBC 3 /hpf Urine WBC 4 /hpf Urine Hyaline Casts 16 /lpf Microscopic Urinalysis Comment CATH-CULT NOT IND Urine Opiates Screen POS Urine Barbiturates Screen NEG Urine Amphetamines Screen POS Urine Benzodiazepines Screen NEG Urine Cocaine Screen POS Urine Cannabinoids Screen NEG Lactic Acid Level 2.7 mmol/L Ammonia 29 MCMOL/L Blood Gas Puncture Site RT FEMORAL Blood Gas Patient Temperature 98.6 Blood Gas HCO3 24 mmol/L Blood Gas Base Excess -4.0 mmol/L Blood Gas Oxygen Saturation 94 % Arterial Blood pH 7.16 Arterial Blood Partial Pressure CO2 69 mmHg Arterial Blood Partial Pressure O2 98 mmHG Arterial Blood Oxygen Content 11.7 Vol % Arterial Blood Carboxyhemoglobin 0.9 % Arterial Blood Methemoglobin 0.6 % Blood Gas Hemoglobin 8.8 G/DL Oxygen Delivery Device NASAL CANNULA Blood Gas Liter Flow 4 L/M Test 05/26/17 03:34 [facility] Medical Decision Making Medical Screen Exam Complete: Yes Emergency Medical Condition: Yes Medical Record Reviewed: Yes Differential Diagnosis Overdose, polysubstance abuse, infection, sepsis, altered mental status, psychosis Narrative Course IV established, patient pancultured and broad-spectrum antibiotics given at presentation along with IV fluids and antipyretics Elevated white blood cell count consistent with infection. Laboratory examinations reviewed, patient has markedly decreased calcium, supplemented. Urine drug screen positive for amphetamines, cocaine, and opiates. Possible flakka ingestion secondary to patient's witnessed behavior Patient received sedation via Ativan and Haldol and had significant improvement in psychotic behavior. ABG pH 7.16 PCO2 69 PaO2 98. Patient given second dose of Narcan 0.[address] head negative for acute intracranial process as per radiology. Chest x-ray negative Case discussed with Dr. Berger ICU attending, admitted. Acetaminophen level added Diagnosis Primary Impression: Sepsis Qualified Codes: A41.9 - Sepsis, unspecified organism Additional Impressions: Acute psychosis Opiate overdose Qualified Codes: T40.604A - Poisoning by unspecified narcotics, undetermined, initial encounter Admitting Information Admitting Physician Requests: Admit Condition: Serious Sourav Grewal MD May 26, 2017 01:37
[2017-05-26] MEDS ORDERED: CALCIUM GLUCONATE INJ 1 GM in DEXTROSE 5% IN WATER 100ML INJ 100 ML IV ONE ×2 (02:00)
--- NOTE | 2017-05-26 02:55 | RADRPT ---
EXAM DATE/TIME: 05/26/2017 02:15 [place] COMPARISON: No previous studies available for comparison. INDICATIONS : Altered mental status. RADIATION DOSE: 69.15 CTDIvol (mGy) MEDICAL HISTORY : Cardiovascular disease. SURGICAL HISTORY : Hysterectomy. ENCOUNTER: Initial ACUITY: 1 day PAIN SCALE: Non-responsive LOCATION: Bilateral cranial TECHNIQUE: Multiple contiguous axial images were obtained of the head. Using automated exposure control and adj ustment of the mA and/or kV according to patient size, radiation dose was kept as low as reasonably a chievable to obtain optimal diagnostic quality images. DICOM format image data is available electro nically for review and comparison. FINDINGS: CEREBRUM: The ventricles are normal for age. No evidence of midline shift, mass lesion, hemorrhage or acute in farction. No extra-axial fluid collections are seen. POSTERIOR FOSSA: The cerebellum and brainstem are intact. The 4th ventricle is midline. The cerebellopontine angle i s unremarkable. EXTRACRANIAL: The visualized portion of the orbits is intact. SKULL: The calvaria is intact. No evidence of skull fracture. CONCLUSION: No acute disease. Bakari Franklin MD on May 26, 2017 at 2:52 Board Certified Radiologist. This report was verified electronically.
[2017-05-26] MEDS ORDERED: NALOXONE HCL 0.4 MG/ML AMP IV PUSH ONE (03:15)
[2017-05-26] MEDS ORDERED: MAGNESIUM OXIDE 400 MG TAB PO PRN (03:45)
[2017-05-26] MEDS ORDERED: SENNOSIDES 8.6 MG TAB PO PRN (03:45)
[2017-05-26] MEDS ORDERED: SODIUM PHOSPHATE INJ 30 MMOL in SODIUM CHLOR 0.9% 250 ML INJ 240 ML IV PRN (03:45)
[2017-05-26] MEDS ORDERED: SODIUM CHLORIDE 0.9% FLUSH 10 ML FLUSH IV FLUSH PRN (03:45)
[2017-05-26] MEDS ORDERED: DEXTROSE 50% IN WATER 50 ML VIAL(D50) IV PUSH ONE (03:45)
[2017-05-26] MEDS ORDERED: POTASSIUM CHLOR 20 MEQ PREMIX 100 ML IV PRN ×2 (03:45)
[2017-05-26] MEDS ORDERED: MAGNESIUM HYDROXIDE SUSP 30 ML CUP PO PRN (03:45)
[2017-05-26] MEDS ORDERED: POTASSIUM PHOSPHATE MONOBASIC 500 MG TAB PO/TUBE PRN (03:45)
[2017-05-26] MEDS ORDERED: POTASSIUM CHLOR 40 MEQ PREMIX 100 ML IV PRN ×2 (03:45)
[2017-05-26] MEDS ORDERED: DEXTROSE 5%-LACTATED RING INJ 1,000 ML IV SCH (03:45)
[2017-05-26] MEDS ORDERED: POTASSIUM PHOSPHATE MONOBASIC 500 MG TAB PO PRN (03:45)
[2017-05-26] MEDS ORDERED: NALOXONE HCL 0.4 MG/ML AMP IV PUSH PRN (03:45)
[2017-05-26] MEDS ORDERED: LORazepam 2 MG/ML VIAL IV PUSH PRN (03:45)
[2017-05-26] MEDS ORDERED: ONDANSETRON HCL 4 MG/2 ML VIAL IV PUSH PRN (03:45)
[2017-05-26] MEDS ORDERED: POTASSIUM PHOSPHATE INJ 30 MMOL in SODIUM CHLOR 0.9% 250 ML INJ 250 ML IV PRN (03:45)
[2017-05-26] MEDS ORDERED: MAGNESIUM SULFATE INJ 4 GM in SODIUM CHLORIDE 0.9% INJ 92 ML IV PRN (03:45)
[2017-05-26] MEDS ORDERED: RESP: ALBUTEROL 2.5 MG/3 ML NEB (PRN) INH (03:45)
[2017-05-26] MEDS ORDERED: MISCELLANEOUS NURSING INFORMATION XX SCH (03:45)
[2017-05-26] MEDS ORDERED: CHLORHEXIDINE GLUCONATE 2 % 1 PACK (2 CLOTHS) TOP PRN (03:45)
[2017-05-26] MEDS ORDERED: MAGNESIUM SULFATE INJ 2 GM in SODIUM CHLORIDE 0.9% INJ 96 ML IV PRN (03:45)
[2017-05-26] MEDS ORDERED: LACTULOSE SYRUP 20 GM/30 ML CUP PO PRN (03:45)
[2017-05-26] MEDS ORDERED: POTASSIUM CHLORIDE 25 MEQ EFFERVESCENT TAB PO PRN (03:45)
[2017-05-26] MEDS ORDERED: BISACODYL 10 MG SUPP RECTAL PRN (03:45)
[2017-05-26] MEDS: CHLORHEXIDINE GLUCONATE 2 % 1 PACK (2 CLOTHS) TOP SCH (04:00)
[2017-05-26 05:13] LABS: ACETAMINOPHEN LESS THAN 2.0 MCG/ML (10.0-30.0); PHOSPHORUS 2.8 MG/DL (2.5-4.9)
--- NOTE | 2017-05-26 06:25 | HHI.HP ---
HPI Service Critical Care Medicine Primary Care Physician Unknown Admission Diagnosis Overdose, Polysubstance abuse, sepsis Diagnosis: (1) Cocaine abuse Diagnosis: Principal (2) Amphetamine delirium Diagnosis: Principal (3) Microcytic anemia Diagnosis: Secondary (4) Hypomagnesemia Diagnosis: Principal (5) Hypoalbuminemia Diagnosis: Secondary (6) Lactic acidosis Diagnosis: Principal (7) Hypocalcemia Diagnosis: Principal (8) Leukocytosis Diagnosis: Secondary (9) Sacral fracture Diagnosis: Secondary (10) Accidental overdose Diagnosis: Principal (11) Opiate overdose Diagnosis: Principal (12) Acute psychosis Diagnosis: Principal (13) SIRS (systemic inflammatory response syndrome) Diagnosis: Principal Chief Complaint: Altered mental status. Travel History International Travel<30 Days: No Contact w/Intl Traveler <30 Da: No Traveled to Known Affected Are: No Sepsis Criteria SIRS Criteria (2 or more): Heart rate over 90, WBC > 86020, < 4000 or > 10% bands History of Present Illness 56-year-old female. Admission 05/26/2017. Past medical history includes recent sacral alae fracture, history of SVT, scoliosis, ongoing tobaccoism and history of SVT status post ablation patient was discharged 05/25 with a supply of long-acting OxyContin 10 mg #14 and oxycodone/acetaminophen 5/ 325 #42 for pain management. Follow-up appointment with Dr. Allen orthopedics and sent home with a 100 Late last night, patient was found by with decreased responsiveness and shallow respirations prompting the 911 call. Upon EMS arrival, patient's noted she stopped breathing, however EMS noted the patient to be breathing on her own with sonorous respirations and pinpoint pupils. Naloxone 0.4 mg administered, patient awakened, became combative. As per EMS, patient is eliciting psychotic features during transport, possibly responding to auditory hallucinations as well. Patient continues writhing & psychotic behavior in ED CT brain showed no acute findings. Chest x-ray showed no acute findings infected. UA negative. Blood cultures 2 and influenza are pending. Patient leukocytosis of 17,000. Due to her mental status the rate analyst were asked to admit patient for observation to ICU In the ED, patient received one dose of vancomycin started piperacillin/ tazobactam for presumed sepsis. This was continued per overnight rate analyst order set. Patient received 5 mg of haloperidol 2 mg of lorazepam due to agitation. Review of Systems ROS Limitations: Clinical Condition, Intoxication, Altered Mental Status Past Family Social History Allergies: Coded Allergies: Sulfa (Sulfonamide Antibiotics) (Unverified Allergy, Severe, 05/24/17) Past Medical History Scoliosis History of SVT status post ablation Ongoing tobaccoism History of polysubstance abuse including cocaine and amphetamines Hypertension Past Surgical History Hysterectomy Bilateral shoulder Right upper extremity due to trauma and no type Reported Medications Enalapril 2.5 mill grams by mouth daily Oxycodone 10 mg by mouth twice a day Oxycodone/acetaminophen 5/325 one tablet every 4 hours as needed Pain Active Ordered Medications Reviewed in EMR Family History No history of diabetes, hypertension, coronary artery disease or sudden . Social History Committed one half pack per day tobacco times several years. He denies alcohol. Positive for cocaine inhalation. Urine drugs screen was positive for amphetamines Physical Exam Vital Signs Vital Signs Date Time Temp Pulse Resp B/P (MAP) Pulse Ox O2 Delivery O2 Flow Rate FiO2 05/26/17 05:49 99 Nasal Cannula 1.00 05/26/17 04:31 98.4 86 18 97/58 (71) 98 Room Air 05/26/17 03:00 101 20 90/54 (66) 98 Nasal Cannula 2.00 05/26/17 02:04 102 18 82/45 (57) 93 Nasal Cannula 4.00 05/26/17 00:48 100 Room Air 05/26/17 00:48 100 Room Air 05/26/17 00:16 101.2 140 34 140/92 (108) Physical Exam GENERAL: 56-year-old female resting in bed in no acute distress SKIN: Warm and dry. No rash. Well-perfused HEAD: Atraumatic. Normocephalic. EYES: Pupils equal and round about 2 mm bilaterally and reactive. No scleral icterus. No injection or drainage. ENT: No nasal bleeding or discharge. Mucous membranes pink and moist. NECK: Trachea midline. No JVD. CARDIOVASCULAR: Regular rate and rhythm. S1, S2. No S4. Without murmur RESPIRATORY: Clear to auscultation. Breath sounds equal bilaterally. GASTROINTESTINAL: Abdomen soft, non-tender, nondistended. Hypoactive bowel sounds are appreciated MUSCULOSKELETAL: Extremities without significant peripheral edema. No obvious deformities. NEUROLOGICAL: Arousable but falls back to sleep easily. No obvious cranial nerve deficits. Motor grossly within normal limits. Five out of 5 muscle strength in the arms and legs. Slurred speech Laboratory Laboratory Tests Test 05/26/17 00:20 05/26/17 00:30 05/26/17 00:35 05/26/17 03:05 White Blood Count 17.9 Red Blood Count 3.88 Hemoglobin 9.5 Hematocrit 30.7 Mean Corpuscular Volume 79.2 Mean Corpuscular Hemoglobin 24.6 Mean Corpuscular Hemoglobin Concent 31.0 Red Cell Distribution Width 16.9 Platelet Count 385 Mean Platelet Volume 6.4 Neutrophils (%) (Auto) 68.3 Lymphocytes (%) (Auto) 19.7 Monocytes (%) (Auto) 10.3 Eosinophils (%) (Auto) 1.3 Basophils (%) (Auto) 0.4 Neutrophils # (Auto) 12.2 Lymphocytes # (Auto) 3.5 Monocytes # (Auto) 1.8 Eosinophils # (Auto) 0.2 Basophils # (Auto) 0.1 CBC Comment DIFF FINAL Differential Comment Prothrombin Time 11.4 Prothromb Time International Ratio 1.1 Activated Partial Thromboplast Time 30.6 Blood Urea Nitrogen 13 Creatinine 0.66 Random Glucose 59 Total Protein 5.1 Albumin 2.0 Calcium Level 5.4 Phosphorus Level 2.8 Magnesium Level 1.2 Alkaline Phosphatase 102 Aspartate Amino Transf (AST/SGOT) 32 Alanine Aminotransferase (ALT/SGPT) 12 Total Bilirubin 0.4 Sodium Level 143 Potassium Level 4.0 Chloride Level 117 Carbon Dioxide Level 18.2 Anion Gap 8 Estimat Glomerular Filtration Rate 93 Protein Corrected Calcium 6.2 Total Creatine Kinase 171 Creatine Kinase MB 1.7 Troponin I LESS THAN 0.02 Lipase 27 Acetaminophen Level LESS THAN 2.0 Urine Color YELLOW Urine Turbidity CLEAR Urine pH 6.0 Urine Specific [place] 1.014 Urine Protein 30 Urine Glucose (UA) NEG Urine Ketones NEG Urine Occult Blood TRACE Urine Nitrite NEG Urine Bilirubin NEG Urine Urobilinogen LESS THAN 2.0 Urine Leukocyte Esterase NEG Urine RBC 3 Urine WBC 4 Urine Hyaline Casts 16 Microscopic Urinalysis Comment CATH-CULT NOT IND Urine Opiates Screen POS Urine Barbiturates Screen NEG Urine Amphetamines Screen POS Urine Benzodiazepines Screen NEG Urine Cocaine Screen POS Urine Cannabinoids Screen NEG Lactic Acid Level 2.7 Ammonia 29 Blood Gas Puncture Site RT FEMORAL Blood Gas Patient Temperature 98.6 Blood Gas HCO3 24 Blood Gas Base Excess -4.0 Blood Gas Oxygen Saturation 94 Arterial Blood pH 7.16 Arterial Blood Partial Pressure CO2 69 Arterial Blood Partial Pressure O2 98 Arterial Blood Oxygen Content 11.7 Arterial Blood Carboxyhemoglobin 0.9 Arterial Blood Methemoglobin 0.6 Blood Gas Hemoglobin 8.8 Oxygen Delivery Device NASAL CANNULA Blood Gas Liter Flow 4 Test 05/26/17 03:34 05/26/17 05:24 Lactic Acid Level 0.4 Blood Gas Puncture Site RT FEMORAL Blood Gas Patient Temperature 98.6 Blood Gas HCO3 25 Blood Gas Base Excess -1.0 Blood Gas Oxygen Saturation 94 Arterial Blood pH 7.27 Arterial Blood Partial Pressure CO2 56 Arterial Blood Partial Pressure O2 86 Arterial Blood Oxygen Content 11.6 Arterial Blood Carboxyhemoglobin 1.2 Arterial Blood Methemoglobin 0.6 Blood Gas Hemoglobin 8.7 Oxygen Delivery Device NASAL CANNULA Blood Gas Liter Flow 1 Date/Time Source Procedure Growth Status 05/26/17 00:30 Blood Peripheral Aerobic Blood Culture Pending Received 05/26/17 00:30 Blood Peripheral Anaerobic Blood Culture Pending Received 05/26/17 00:33 Nasal Washing Influenza Types A,B Antigen (KAVITHA) - Final NEGATIVE FOR FLU A AND B ANTIGEN.... Complete Result Diagram: 05/26/17 0020 05/26/17 002 Imaging Last Impressions Head CT 05/26/1723 Signed Impressions: Service Date/Time: Friday, May 26, 2017 02:15 - CONCLUSION: No acute disease. Bakari Franklin MD Chest X-Ray 05/26/1723 Signed Impressions: Service Date/Time: Friday, May 26, 2017 00:38 - CONCLUSION: No acute disease. Bakari Franklin MD Septic Shock Reassessment Septic shock perfusion: reassessment completed Caprini VTE Risk Assessment Caprini VTE Risk Assessment: Mod/High Risk (score >= 2) Caprini Risk Assessment Model Point Value = 1 Point Value = 2 Point Value = 3 Point Value = 5 Age 41-60 Minor surgery BMI > 25 kg/m2 Swollen legs Varicose veins or History of unexplained or recurrent spontaneous Oral contraceptives or hormone replacement Sepsis (< 1 month) Serious lung disease, including pneumonia (< 1 month) Abnormal pulmonary function Acute myocardial infarction Congestive heart failure (< 1 month) History of inflammatory bowel disease Medical patient at bed rest Age 61-74 Arthroscopic surgery Major open surgery (> 45 min) Laparoscopic surgery (> 45 min) Malignancy Confined to bed (> 72 hours) Immobilizing plaster cast Central venous access Age >= 75 History of VTE Family history of VTE Factor V Leiden Prothrombin [id number] Lupus anticoagulant Anticardiolipin antibodies Elevated serum homocysteine Heparin-induced thrombocytopenia Other congenital or acquired thrombophilia Stroke (< 1 month) Elective arthroplasty Hip, pelvis, or leg fracture Acute spinal cord injury (< 1 month) Prophylaxis Regimen Total Risk Factor Score Risk Level Prophylaxis Regimen 0-1 Low Early ambulation 2 Moderate Order ONE of the following: *Sequential Compression Device (SCD) *Heparin 5000 units SQ BID 3-4 Higher Order ONE of the following medications: *Heparin 5000 units SQ TID *Enoxaparin/Lovenox 40 mg SQ daily (WT < 150 kg, CrCl > 30 mL/min) *Enoxaparin/Lovenox 30 mg SQ daily (WT < 150 kg, CrCl > 10-29 mL/min) *Enoxaparin/Lovenox 30 mg SQ BID (WT < 150 kg, CrCl > 30 mL/min) AND/OR *Sequential Compression Device (SCD) 5 or more Highest Order ONE of the following medications: *Heparin 5000 units SQ TID (Preferred with Epidurals) *Enoxaparin/Lovenox 40 mg SQ daily (WT < 150 kg, CrCl > 30 mL/min) *Enoxaparin/Lovenox 30 mg SQ daily (WT < 150 kg, CrCl > 10-29 mL/min) *Enoxaparin/Lovenox 30 mg SQ BID (WT < 150 kg, CrCl > 30 mL/min) AND *Sequential Compression Device (SCD) Assessment and Plan Assessment and Plan Neuro/Psych: Acute delirium secondary to accidental oxycodone ingestion UDS (+) cocaine, amphetamines, opiates Hold all narcotics. Patient received 0.4 mill grams of naloxone and 5 mg haloperidol and 2 mg of lorazepam in ED. CT brain revealed no acute intracranial findings Neurochecks As needed lorazepam 1 mg every 2 hours when necessary agitation CV: History of SVT status post ablation History of Hypertension SIRS Acute Lactic acidosis - resolved currently 0.4 Patient is currently on D5 1 half normal saline with 20 mEq KCl at 100 cc an hour Replace electrolytes with history of SVT Previously on enalapril 2.5 mill grams by mouth daily. This is been held in light of borderline blood pressures No beta blockers with cocaine use Resp: Nasal cannula to maintain saturations greater than equal to 92% Incentive spirometry while awake Chest x-ray revealed no acute cardiopulmonary findings As needed albuterol aerosols every 2 hours. Dyspnea GI: Hypoalbuminemia Advance diet as tolerated at bedside nurse and swallow Famotidine for GI prophylaxis Docusate sodium/senna 1 tablet twice a day for bowel regimen : No indication for Banuelos catheter Endo: Sliding-scale insulin if indicated to maintain euglycemia Check TSH Renal: Creatinine currently within normal limits Monitor urine output Accurate I's and O's Heme: Microcytic anemia Leukocytosis Monitor CBC daily. Follow trends Does not meet transfusion threshold at this time ID: Currently on piperacillin/tazobactam day #1 for presumed SIRS. Received 1 dose of vancomycin in ED Blood cultures 2 05/26 no growth Influenza negative. UA negative MSK: Sacral alae fracture right greater than left PT evaluate and treat Follow-up with Dr. Allen as outpatient 1 week FEN: Acute Hypo-magnesium Acute Hypocalcemia Received 2 g calcium gluconate. Recheck at 1400 Receiving 4 g magnesium sulfate. Recheck at 1400 Access - Utilize peripheral IV Prophylaxis - GI - famotidine - DVT - SCD/enoxaparin Level II admission Code Status Full code Discussed Condition With Patient. RN. Care plan discussed and all questions answered. Problem Qualifiers (1) Leukocytosis: Qualified Codes: D72.829 - Elevated white blood cell count, unspecified (2) Sacral fracture: Qualified Codes: S32.10XD - Unspecified fracture of sacrum, subsequent encounter for fracture with routine healing (3) Accidental overdose: Qualified Codes: T50.901A - Poisoning by unspecified drugs, medicaments and biological substances, accidental (unintentional), initial encounter (4) Opiate overdose: Qualified Codes: T40.604A - Poisoning by unspecified narcotics, undetermined, initial encounter Victorino Mccabe MD May 26, 2017 06:25
[2017-05-26] MEDS ORDERED: ALBUMIN 5% INJ 500 ML IV ONE (07:30)
[2017-05-26] MEDS ORDERED: DEXTROSE 50% IN WATER 50 ML VIAL(D50) IV PUSH PRN (08:30)
[2017-05-26] MEDS ORDERED: GLUCAGON 1 MG/ML VIAL OTHER PRN (08:30)
[2017-05-26] MEDS ORDERED: CALCIUM GLUCONATE INJ 1 GM in SODIUM CHLORIDE 0.9% INJ 100 ML IV ONE (09:00)
[2017-05-26] MEDS ORDERED: FAMOTIDINE 20 MG/2 ML VIAL IV PUSH SCH (09:00)
[2017-05-26] MEDS: SODIUM CHLORIDE 0.9% FLUSH 10 ML FLUSH IV FLUSH SCH ×2 (09:00→20:31)
[2017-05-26] MEDS: DOCUSATE SODIUM 50 MG/SENNA 8.6 MG TAB PO SCH ×2 (09:00→20:32)
[2017-05-26] MEDS: FAMOTIDINE 20 MG TAB PO SCH ×2 (09:00→20:32)
[2017-05-26] MEDS: PIPERACIL-TAZO 3.375 GM PREMIX 50 ML IV SCH ×3 (10:18→18:05)
[2017-05-26] MEDS: D5-1/2 NS + KCL 20 MEQ INJ 1,000 ML IV SCH ×3 (10:19→21:13)
[2017-05-26] MEDS: HEPARIN SODIUM - SQ 10,000 UNITS/ML VIAL SQ SCH ×2 (10:20→20:32)
[2017-05-26] MEDS: INSULIN NovoLIN REGULAR SUPPLEMENTAL SCALE SQ SCH ×3 (12:00→20:49)
--- NOTE | 2017-05-26 14:27 | EKG ---
Date Performed: 05/26/2017 Time Performed: 00:22:08 PTAGE: 56 years EKG: SINUS TACHYCARDIA NONSPECIFIC T-WAVE ABNORMALITY ABNORMAL RHYTHM ECG NO PREVIOUS TRACING DOCTOR: Abiola Da Silva Interpretating Date/Time 05/26/2017 14:26:47
--- NOTE | 2017-05-26 14:28 | EKG ---
Date Performed: 05/26/2017 Time Performed: 04:54:57 PTAGE: 56 years EKG: Sinus rhythm WITH OCCASIONAL SUPRAVENTRICULAR PREMATURE COMPLEXES Compared to previous tracing the nonspecific ST T wave changes have resolved as has the sinus tachycardia. The frequent PACs are a new finding BELKIS PETERSEN ECG PREVIOUS TRACING : 05/26/2017 00.22 DOCTOR: Abiola Da Silva Interpretating Date/Time 05/26/2017 14:27:55
--- NOTE | 2017-05-26 14:29 | EKG ---
Date Performed: 05/26/2017 Time Performed: 07:29:10 PTAGE: 56 years EKG: Sinus rhythm Compared to previous tracing the frequent PACs have resolved and the tracing is now within normal [facility] NORMAL ECG PREVIOUS TRACING : 05/26/2017 04.54 DOCTOR: Abiola Da Silva Interpretating Date/Time 05/26/2017 14:28:44
[2017-05-26 18:00] LABS: CREATININE 0.76 MG/DL (0.50-1.00)
[2017-05-26 18:01] LABS: BICARBONATE 24.9 MEQ/L (21.0-32.0); CALCIUM 8.6 MG/DL (8.5-10.1); MAGNESIUM 2.4 MG/DL (1.5-2.5); PHOSPHORUS 2.7 MG/DL (2.5-4.9)
[2017-05-26] MEDS: ACETAMINOPHEN 1000 MG/100 ML 100 ML IV PRN (18:06)
[2017-05-27] VITALS (11 sets, daily range): BP systolic 144–180; BP diastolic 80–132; PULSE 53–83; RESP 18–25; TEMP 97.6–98.3; O2SAT 96–100
[2017-05-27] MEDS: PIPERACIL-TAZO 3.375 GM PREMIX 50 ML IV SCH ×4 (00:01→18:08)
[2017-05-27] MEDS: CHLORHEXIDINE GLUCONATE 2 % 1 PACK (2 CLOTHS) TOP SCH (03:57)
[2017-05-27] MEDS: ACETAMINOPHEN 1000 MG/100 ML 100 ML IV PRN (05:15)
[2017-05-27 06:06] LABS: AUTOMATED NEUTROPHIL # 3.4 TH/MM3 (1.8-7.7); BASOPHIL % 0.8 % (0.0-2.0); EOSINOPHIL # 0.3 TH/MM3 (0-0.4); EOSINOPHIL % 5.7 % (0.0-4.0); HEMATOCRIT 27.1 % (35.0-46.0); HEMOGLOBIN 8.6 GM/DL (11.6-15.3); LYMPH % 27.6 % (9.0-44.0); LYMPHOCYTE # 1.6 TH/MM3 (1.0-4.8); MEAN CORPUSCULAR HEMOGLOBIN 24.7 PG (27.0-34.0); MEAN CORPUSCULAR HGB CONC 31.6 % (32.0-36.0); MEAN PLATELET VOLUME 6.8 FL (7.0-11.0); MONO % 8.4 % (0.0-8.0); MONOCYTE # 0.5 TH/MM3 (0-0.9); NEUT % 57.5 % (16.0-70.0); PLATELET COUNT 327 TH/MM3 (150-450); RED BLOOD COUNT 3.47 MIL/MM3 (4.00-5.30); RED CELL DISTRIBUTION WIDTH 17.2 % (11.6-17.2); WHITE BLOOD COUNT 5.9 TH/MM3 (4.0-11.0)
--- NOTE | 2017-05-27 06:35 | RADRPT ---
EXAM DATE/TIME: 05/27/2017 04:34 [place] COMPARISON: CHEST SINGLE AP, May 26, 2017, 0:38. INDICATIONS : Shortness of breath. MEDICAL HISTORY : None. SURGICAL HISTORY : None. ENCOUNTER: Subsequent ACUITY: 2 days PAIN SCORE: Non-responsive. LOCATION: Bilateral chest FINDINGS: A single view of the chest demonstrates the lungs to be symmetrically aerated without evidence of mas s, infiltrate or effusion. The cardiomediastinal contours are unremarkable. Bilateral shoulder prost heses are present.. CONCLUSION: No acute disease. Bakari Franklin MD on May 27, 2017 at 6:32 Board Certified Radiologist. This report was verified electronically.
[2017-05-27 06:42] LABS: ALBUMIN 2.6 GM/DL (3.4-5.0); ALKALINE PHOSPHATASE 129 U/L (45-117); ALT (GPT) 15 U/L (10-53); AST (GOT) 27 U/L (15-37); BICARBONATE 27.5 MEQ/L (21.0-32.0); BLOOD UREA NITROGEN 8 MG/DL (7-18); CALCIUM 7.8 MG/DL (8.5-10.1); CHLORIDE 109 MEQ/L (98-107); CREATININE 0.59 MG/DL (0.50-1.00); GLOMERULAR FILTRATION RATE 106 ML/MIN (>89); GLUCOSE,RANDOM 88 MG/DL (74-106); MAGNESIUM 2.2 MG/DL (1.5-2.5); PHOSPHORUS 2.5 MG/DL (2.5-4.9); SODIUM (NA) 140 MEQ/L (136-145); TOTAL BILIRUBIN ADULT 0.4 MG/DL (0.2-1.0); TOTAL PROTEIN 6.6 GM/DL (6.4-8.2); TROPONIN I LESS THAN 0.02 NG/ML (0.02-0.05)
[2017-05-27] MEDS: D5-1/2 NS + KCL 20 MEQ INJ 1,000 ML IV SCH ×2 (07:59→18:08)
[2017-05-27] MEDS: HEPARIN SODIUM - SQ 10,000 UNITS/ML VIAL SQ SCH ×2 (07:59→22:35)
[2017-05-27] MEDS: FAMOTIDINE 20 MG TAB PO SCH ×2 (08:00→22:35)
[2017-05-27] MEDS: SODIUM CHLORIDE 0.9% FLUSH 10 ML FLUSH IV FLUSH SCH ×2 (08:00→22:35)
[2017-05-27] MEDS: DOCUSATE SODIUM 50 MG/SENNA 8.6 MG TAB PO SCH ×2 (08:00→21:00)
[2017-05-27] MEDS: INSULIN NovoLIN REGULAR SUPPLEMENTAL SCALE SQ SCH ×4 (08:00→21:00)
[2017-05-27] MEDS: MORPHINE SULFATE 2 MG/ML INJ IV PUSH PRN ×2 (12:28→17:00)
--- NOTE | 2017-05-27 19:06 | HHI.CCPN ---
Subjective Remarks/Hospital Course 56-year-old female. Admission 05/26/2017. Past medical history includes recent sacral alae fracture, history of SVT, scoliosis, ongoing tobaccoism and history of SVT status post ablation patient was discharged 05/25 with a supply of long-acting OxyContin 10 mg #14 and oxycodone/acetaminophen 5/ 325 #42 for pain management. Follow-up appointment with Dr. Allen orthopedics and sent home with a 100 Late last night, patient was found by with decreased responsiveness and shallow respirations prompting the 911 call. Upon EMS arrival, patient's noted she stopped breathing, however EMS noted the patient to be breathing on her own with sonorous respirations and pinpoint pupils. Naloxone 0.4 mg administered, patient awakened, became combative. As per EMS, patient is eliciting psychotic features during transport, possibly responding to auditory hallucinations as well. Patient continues writhing & psychotic behavior in ED CT brain showed no acute findings. Chest x-ray showed no acute findings infected. UA negative. Blood cultures 2 and influenza are pending. Patient leukocytosis of 17,000. Due to her mental status the tire tester were asked to admit patient for observation to ICU In the ED, patient received one dose of vancomycin started piperacillin/ tazobactam for presumed sepsis. This was continued per overnight tire tester order set. Patient received 5 mg of haloperidol 2 mg of lorazepam due to agitation. Subjective 05/27: Patient currently resting currently in bed. Complaining of pain with movement. Requesting additional pain management for physical therapy. Tolerating diet. Objective Vital Signs Date Time Temp Pulse Resp B/P (MAP) Pulse Ox O2 Delivery O2 Flow Rate FiO2 05/27/17 16:00 98.1 77 18 170/89 (116) 100 05/27/17 12:00 Nasal Cannula 05/26/17 20:17 21 05/26/17 07:00 2.00 Intake and Output 05/27/17 05/27/17 05/28/17 08:00 16:00 00:00 Intake Total 150 ml Output Total 1175 ml Balance -1025 ml Result Diagram: 05/27/17 0355 05/27/17 0355 Other Results Microbiology Date/Time Source Procedure Growth Status 05/26/17 00:30 Blood Peripheral Aerobic Blood Culture - Preliminary NO GROWTH IN 1 DAY Resulted 05/26/17 00:30 Blood Peripheral Anaerobic Blood Culture - Preliminary NO GROWTH IN 1 DAY Resulted 05/26/17 00:33 Nasal Washing Influenza Types A,B Antigen (KAVITHA) - Final NEGATIVE FOR FLU A AND B ANTIGEN.... Complete Imaging Last Impressions Chest X-Ray 05/27/17 0600 Signed Impressions: Service Date/Time: Saturday, May 27, 2017 04:34 - CONCLUSION: No acute disease. Bakari Franklin MD Head CT 05/26/17 0024 Signed Impressions: Service Date/Time: Friday, May 26, 2017 02:15 - CONCLUSION: No acute disease. Bakari Franklin MD Objective Remarks GENERAL: 56-year-old female resting in bed in no acute distress SKIN: Warm and dry. No rash. Well-perfused HEAD: Atraumatic. Normocephalic. EYES: Pupils equal and round about 2 mm bilaterally and reactive. No scleral icterus. No injection or drainage. ENT: No nasal bleeding or discharge. Mucous membranes pink and moist. NECK: Trachea midline. No JVD. CARDIOVASCULAR: Regular rate and rhythm. S1, S2. No S4. Without murmur RESPIRATORY: Clear to auscultation. Breath sounds equal bilaterally. GASTROINTESTINAL: Abdomen soft, non-tender, nondistended. Hypoactive bowel sounds are appreciated MUSCULOSKELETAL: Extremities without significant peripheral edema. No obvious deformities. NEUROLOGICAL: Awake and oriented to person, place and time. No obvious cranial nerve deficits. Motor grossly within normal limits. Five out of 5 muscle strength in the arms and legs. Normal speech A/P Assessment and Plan Neuro/Psych: Acute delirium secondary to accidental oxycodone ingestion UDS (+) cocaine, amphetamines, opiates Acetaminophen 650 mg by mouth every 6 hours. As needed Fever pain 1-2 We'll start on low-dose pain management secondary to agitation at current dose acetaminophen 5-10/321, every 4 hours when necessary pain 3-10 Patient received 0.4 mill grams of naloxone and 5 mg haloperidol and 2 mg of lorazepam in ED 05/26. CT brain revealed no acute intracranial findings Neurochecks As needed lorazepam 1 mg every 2 hours when necessary agitation CV: History of SVT status post ablation History of Hypertension SIRS Acute Lactic acidosis - resolved currently 0.4 Patient is currently on D5 1 half normal saline with 20 mEq KCl at 100 cc an hour and this will be discontinued today on 05/27 Replace electrolytes with history of SVT Previously on enalapril 2.5 mill grams by mouth daily. This will be started 2.5 twice a day today 05/27 As needed hydralazine/Nitropaste for systolic blood pressure greater than 160 No beta blockers with cocaine use Resp: Nasal cannula to maintain saturations greater than equal to 92% Incentive spirometry while awake Chest x-ray revealed no acute cardiopulmonary findings As needed albuterol aerosols every 2 hours. Dyspnea GI: Hypoalbuminemia Heart healthy diet Famotidine for GI prophylaxis Docusate sodium/senna 1 tablet twice a day for bowel regimen : No indication for Banuelos catheter Endo: Sliding-scale insulin if indicated to maintain euglycemia Check TSH - 0.81 Renal: Creatinine currently within normal limits Monitor urine output Accurate I's and O's Heme: Microcytic anemia Leukocytosis Monitor CBC daily. Follow trends Does not meet transfusion threshold at this time ID: Currently on piperacillin/tazobactam day #2 for presumed SIRS. Received 1 dose of vancomycin in ED record we'll discontinue today. No sequelae seen Blood cultures 2 05/26 no growth Influenza negative. UA negative MSK: Sacral alae fracture right greater than left PT evaluate and treat Follow-up with Dr. Allen as outpatient 1 week FEN: Replace electrolytes as clinically indicated Access - Utilize peripheral IV Prophylaxis - GI - famotidine - DVT - SCD/enoxaparin Level II follow-up Patient is stable from a critical care medicine standpoint. Assign care to hospitalist in a.m. 05/28. Okay to transfer out of ICU. Victorino Mccabe MD May 27, 2017 19:06
[2017-05-27] MEDS ORDERED: hydrALAZINE HCL 20 MG/ML VIAL IV PUSH PRN (19:15)
[2017-05-27] MEDS ORDERED: ACETAMINOPHEN/HYDROcodone 325 MG/5 MG TAB PO PRN (19:15)
[2017-05-27] MEDS ORDERED: ACETAMINOPHEN 325 MG TAB PO PRN (19:15)
[2017-05-27] MEDS ORDERED: NITROGLYCERIN 2% OINT 1 GM PACKET TOPICAL PRN (19:15)
[2017-05-27] MEDS: ACETAMINOPHEN/HYDROcodone 325 MG/10 MG TAB PO PRN (19:53)
[2017-05-27] MEDS ORDERED: ENALAPRIL MALEATE 2.5 MG TAB PO SCH (21:00)
[2017-05-27] MEDS: MUPIROCIN 2% OINT 1 APPLIC/GM SYR EACH NARE SCH (22:35)
[2017-05-28] VITALS (8 sets, daily range): BP systolic 114–192; BP diastolic 56–98; PULSE 78–105; RESP 16–22; TEMP 97.9–98.6; O2SAT 97–98
[2017-05-28] MEDS: PIPERACIL-TAZO 3.375 GM PREMIX 50 ML IV SCH ×3 (01:00→14:25)
[2017-05-28] MEDS: ENALAPRIL MALEATE 5 MG TAB PO SCH ×3 (01:30→19:53)
[2017-05-28] MEDS ORDERED: PILL SPLITTER OTHER PRN (01:30)
[2017-05-28] MEDS: CHLORHEXIDINE GLUCONATE 2 % 1 PACK (2 CLOTHS) TOP SCH (01:54)
[2017-05-28 05:07] LABS: HEMATOCRIT 31.1 % (35.0-46.0); HEMOGLOBIN 10.2 GM/DL (11.6-15.3); MEAN CELL VOLUME 76.2 FL (80.0-100.0); MEAN CORPUSCULAR HEMOGLOBIN 25.1 PG (27.0-34.0); MEAN CORPUSCULAR HGB CONC 32.9 % (32.0-36.0); MEAN PLATELET VOLUME 6.9 FL (7.0-11.0); PLATELET COUNT 431 TH/MM3 (150-450); RED BLOOD COUNT 4.08 MIL/MM3 (4.00-5.30); RED CELL DISTRIBUTION WIDTH 17.3 % (11.6-17.2); WHITE BLOOD COUNT 8.1 TH/MM3 (4.0-11.0)
[2017-05-28 05:48] LABS: BICARBONATE 27.8 MEQ/L (21.0-32.0); CALCIUM 8.7 MG/DL (8.5-10.1); CREATININE 0.73 MG/DL (0.50-1.00); MAGNESIUM 2.2 MG/DL (1.5-2.5); PHOSPHORUS 3.6 MG/DL (2.5-4.9)
[2017-05-28] MEDS: ACETAMINOPHEN/HYDROcodone 325 MG/10 MG TAB PO PRN ×3 (06:43→19:53)
[2017-05-28] MEDS: INSULIN NovoLIN REGULAR SUPPLEMENTAL SCALE SQ SCH ×4 (08:00→20:01)
[2017-05-28] MEDS: MUPIROCIN 2% OINT 1 APPLIC/GM SYR EACH NARE SCH ×2 (09:25→19:54)
[2017-05-28] MEDS: DOCUSATE SODIUM 50 MG/SENNA 8.6 MG TAB PO SCH ×2 (09:26→19:53)
[2017-05-28] MEDS: HEPARIN SODIUM - SQ 10,000 UNITS/ML VIAL SQ SCH ×2 (09:26→19:54)
[2017-05-28] MEDS: SODIUM CHLORIDE 0.9% FLUSH 10 ML FLUSH IV FLUSH SCH ×2 (09:26→19:59)
[2017-05-28] MEDS: MORPHINE SULFATE 2 MG/ML INJ IV PUSH PRN ×3 (09:26→20:52)
[2017-05-28] MEDS: FAMOTIDINE 20 MG TAB PO SCH ×2 (09:26→19:53)
--- NOTE | 2017-05-28 15:18 | HHI.CCPN ---
Subjective Remarks/Hospital Course 56-year-old female. Admission 05/26/2017. Past medical history includes recent sacral alae fracture, history of SVT, scoliosis, ongoing tobaccoism and history of SVT status post ablation patient was discharged 05/25 with a supply of long-acting OxyContin 10 mg #14 and oxycodone/acetaminophen 5/ 325 #42 for pain management. Follow-up appointment with Dr. Allen orthopedics and sent home with a 100 Late last night, patient was found by with decreased responsiveness and shallow respirations prompting the 911 call. Upon EMS arrival, patient's noted she stopped breathing, however EMS noted the patient to be breathing on her own with sonorous respirations and pinpoint pupils. Naloxone 0.4 mg administered, patient awakened, became combative. As per EMS, patient is eliciting psychotic features during transport, possibly responding to auditory hallucinations as well. Patient continues writhing & psychotic behavior in ED CT brain showed no acute findings. Chest x-ray showed no acute findings infected. UA negative. Blood cultures 2 and influenza are pending. Patient leukocytosis of 17,000. Due to her mental status the engine repairer production were asked to admit patient for observation to ICU In the ED, patient received one dose of vancomycin started piperacillin/ tazobactam for presumed sepsis. This was continued per overnight engine repairer production order set. Patient received 5 mg of haloperidol 2 mg of lorazepam due to agitation. 05/27: Patient currently resting currently in bed. Complaining of pain with movement. Requesting additional pain management for physical therapy. Tolerating diet. Subjective 05/28: Afebrile. Currently standing in room with walker. Pain much better controlled. Plan to discharge to rehabilitation tomorrow. Tolerating diet. No bowel movement today Objective Vital Signs Date Time Temp Pulse Resp B/P (MAP) Pulse Ox O2 Delivery O2 Flow Rate FiO2 05/28/17 12:22 97.9 97 20 121/78 (92) 97 05/28/17 10:10 21 05/27/17 12:00 Nasal Cannula 05/26/17 07:00 2.00 Intake and Output 05/28/17 05/28/17 05/29/17 08:00 16:00 00:00 Intake Total 610 ml Output Total 750 ml Balance -140 ml Result Diagram: 05/28/17 0405 05/28/17 0405 Other Results Microbiology Date/Time Source Procedure Growth Status 05/26/17 00:30 Blood Peripheral Aerobic Blood Culture - Preliminary NO GROWTH IN 2 DAYS Resulted 05/26/17 00:30 Blood Peripheral Anaerobic Blood Culture - Preliminary NO GROWTH IN 2 DAYS Resulted 05/26/17 00:33 Nasal Washing Influenza Types A,B Antigen (KAVITHA) - Final NEGATIVE FOR FLU A AND B ANTIGEN.... Complete Imaging Last Impressions Chest X-Ray 05/27/17 0600 Signed Impressions: Service Date/Time: Saturday, May 27, 2017 04:34 - CONCLUSION: No acute disease. Bakari Franklin MD Head CT 05/26/17 0024 Signed Impressions: Service Date/Time: Friday, May 26, 2017 02:15 - CONCLUSION: No acute disease. Bakari Franklin MD Objective Remarks GENERAL: 56-year-old female standing on room with 2 wheeled walker in no acute distress SKIN: Warm and dry. No rash. Well-perfused HEAD: Atraumatic. Normocephalic. EYES: Pupils equal and round about 2 mm bilaterally and reactive. No scleral icterus. No injection or drainage. ENT: No nasal bleeding or discharge. Mucous membranes pink and moist. NECK: Trachea midline. No JVD. CARDIOVASCULAR: Regular rate and rhythm. S1, S2. No S4. Without murmur RESPIRATORY: Clear to auscultation. Breath sounds equal bilaterally. GASTROINTESTINAL: Abdomen soft, non-tender, nondistended. Hypoactive bowel sounds are appreciated MUSCULOSKELETAL: Extremities without significant peripheral edema. No obvious deformities. NEUROLOGICAL: Awake and oriented to person, place and time. No obvious cranial nerve deficits. Motor grossly within normal limits. Five out of 5 muscle strength in the arms and legs. Normal speech A/P Assessment and Plan Neuro/Psych: Acute delirium secondary to accidental oxycodone ingestion UDS (+) cocaine, amphetamines, opiates Acetaminophen 650 mg by mouth every 6 hours. As needed Fever pain 1-2 We'll start on low-dose pain management secondary to agitation at current dose acetaminophen 5-10/321, every 4 hours when necessary pain 3-10 Patient received 0.4 mill grams of naloxone and 5 mg haloperidol and 2 mg of lorazepam in ED 05/26. CT brain revealed no acute intracranial findings Neurochecks As needed lorazepam 1 mg every 2 hours when necessary agitation CV: History of SVT status post ablation History of Hypertension SIRS Acute Lactic acidosis - resolved currently 0.4 IV fluids discontinued Replace electrolytes with history of SVT Previously on enalapril 2.5 mill grams by mouth daily. This will be started 2.5 twice a day today 05/27 As needed hydralazine/Nitropaste for systolic blood pressure greater than 160 No beta blockers with cocaine use Resp: Nasal cannula to maintain saturations greater than equal to 92% Incentive spirometry while awake Chest x-ray revealed no acute cardiopulmonary findings As needed albuterol aerosols every 2 hours. Dyspnea GI: Hypoalbuminemia Heart healthy diet Famotidine for GI prophylaxis Docusate sodium/senna 1 tablet twice a day for bowel regimen : No indication for Banuelos catheter Endo: Sliding-scale insulin if indicated to maintain euglycemia Check TSH - 0.81 Renal: Creatinine currently within normal limits Monitor urine output Accurate I's and O's Heme: Microcytic anemia Leukocytosis Monitor CBC daily. Follow trends Does not meet transfusion threshold at this time ID: Currently on piperacillin/tazobactam day #3 for presumed SIRS. Received 1 dose of vancomycin in ED record we'll discontinue today. No sequelae seen Blood cultures 2 05/26 no growth Influenza negative. UA negative MSK: Sacral alae fracture right greater than left PT evaluate and treat Follow-up with Dr. Allen as outpatient 1 week FEN: Replace electrolytes as clinically indicated Access - Utilize peripheral IV Prophylaxis - GI - famotidine - DVT - SCD/heparin Level II follow-up Patient is stable from a critical care medicine standpoint. Assign care to hospitalist in a.m. 05/29. Okay to transfer out of ICU. Victorino Mccabe MD May 28, 2017 15:18
[2017-05-29] VITALS (8 sets, daily range): BP systolic 153–163; BP diastolic 82–93; PULSE 57–92; RESP 15–20; TEMP 97.9–98.8; O2SAT 94–100
[2017-05-29] MEDS: MORPHINE SULFATE 2 MG/ML INJ IV PUSH PRN ×2 (01:05→11:39)
[2017-05-29] MEDS: CHLORHEXIDINE GLUCONATE 2 % 1 PACK (2 CLOTHS) TOP SCH ×2 (04:00→23:39)
[2017-05-29] MEDS: ACETAMINOPHEN/HYDROcodone 325 MG/10 MG TAB PO PRN (05:14)
[2017-05-29 06:54] LABS: HEMATOCRIT 30.3 % (35.0-46.0); HEMOGLOBIN 9.8 GM/DL (11.6-15.3); MEAN CELL VOLUME 77.9 FL (80.0-100.0); MEAN CORPUSCULAR HEMOGLOBIN 25.2 PG (27.0-34.0); MEAN CORPUSCULAR HGB CONC 32.4 % (32.0-36.0); MEAN PLATELET VOLUME 7.1 FL (7.0-11.0); PLATELET COUNT 464 TH/MM3 (150-450); RED CELL DISTRIBUTION WIDTH 17.4 % (11.6-17.2)
[2017-05-29 07:12] LABS: BICARBONATE 27.8 MEQ/L (21.0-32.0); CALCIUM 8.9 MG/DL (8.5-10.1); CREATININE 0.68 MG/DL (0.50-1.00)
[2017-05-29] MEDS: INSULIN NovoLIN REGULAR SUPPLEMENTAL SCALE SQ SCH ×4 (07:57→21:00)
[2017-05-29] MEDS: MUPIROCIN 2% OINT 1 APPLIC/GM SYR EACH NARE SCH ×2 (10:24→21:55)
[2017-05-29] MEDS: ENALAPRIL MALEATE 5 MG TAB PO SCH ×2 (10:25→21:56)
[2017-05-29] MEDS: HEPARIN SODIUM - SQ 10,000 UNITS/ML VIAL SQ SCH ×2 (10:25→21:57)
[2017-05-29] MEDS: FAMOTIDINE 20 MG TAB PO SCH ×2 (10:25→21:57)
[2017-05-29] MEDS: DOCUSATE SODIUM 50 MG/SENNA 8.6 MG TAB PO SCH ×2 (10:25→21:57)
[2017-05-29] MEDS: SODIUM CHLORIDE 0.9% FLUSH 10 ML FLUSH IV FLUSH SCH ×2 (10:26→22:00)
--- NOTE | 2017-05-29 12:35 | HHI.CCPN ---
Subjective Remarks/Hospital Course 56-year-old female. Admission 05/26/2017. Past medical history includes recent sacral alae fracture, history of SVT, scoliosis, ongoing tobaccoism and history of SVT status post ablation patient was discharged 05/25 with a supply of long-acting OxyContin 10 mg #14 and oxycodone/acetaminophen 5/ 325 #42 for pain management. Follow-up appointment with Dr. Allen orthopedics and sent home with a 100 Late last night, patient was found by with decreased responsiveness and shallow respirations prompting the 911 call. Upon EMS arrival, patient's noted she stopped breathing, however EMS noted the patient to be breathing on her own with sonorous respirations and pinpoint pupils. Naloxone 0.4 mg administered, patient awakened, became combative. As per EMS, patient is eliciting psychotic features during transport, possibly responding to auditory hallucinations as well. Patient continues writhing & psychotic behavior in ED CT brain showed no acute findings. Chest x-ray showed no acute findings infected. UA negative. Blood cultures 2 and influenza are pending. Patient leukocytosis of 17,000. Due to her mental status the cathode ray tube assembler were asked to admit patient for observation to ICU In the ED, patient received one dose of vancomycin started piperacillin/ tazobactam for presumed sepsis. This was continued per overnight cathode ray tube assembler order set. Patient received 5 mg of haloperidol 2 mg of lorazepam due to agitation. 05/27: Patient currently resting currently in bed. Complaining of pain with movement. Requesting additional pain management for physical therapy. Tolerating diet. 05/28: Afebrile. Currently standing in room with walker. Pain much better controlled. Plan to discharge to rehabilitation tomorrow. Tolerating diet. No bowel movement today Subjective 05/29: remains afebrile. tearful on exam. she states she cannot live in pain like this. when I expressed that she nearly from opiate overdose, she states that she did not try and kill herself, but she would rather be than in this much pain. she restates she does not want to hurt herself. she denies any other complaints, but will not answer any other questions that aren't related to her pain. Objective Vital Signs Date Time Temp Pulse Resp B/P (MAP) Pulse Ox O2 Delivery O2 Flow Rate FiO2 05/29/17 08:00 98.7 80 15 160/93 (115) 95 05/28/17 21:36 21 05/27/17 12:00 Nasal Cannula 05/26/17 07:00 2.00 Intake and Output 05/29/17 05/29/17 05/30/17 08:00 16:00 00:00 Intake Total 540 ml Output Total 800 ml Balance -260 ml Result Diagram: 05/29/17 0507 05/29/17 0507 Imaging Last Impressions Chest X-Ray 05/27/17 0600 Signed Impressions: Service Date/Time: Saturday, May 27, 2017 04:34 - CONCLUSION: No acute disease. Bakari Franklin MD Head CT 05/26/17 0024 Signed Impressions: Service Date/Time: Friday, May 26, 2017 02:15 - CONCLUSION: No acute disease. Bakari Franklin MD Objective Remarks GENERAL: 56-year-old female standing on room with 2 wheeled walker in no acute distress SKIN: Warm and dry. No rash. Well-perfused HEAD: Atraumatic. Normocephalic. EYES: Pupils equal and round about 2 mm bilaterally and reactive. No scleral icterus. No injection or drainage. ENT: No nasal bleeding or discharge. Mucous membranes pink and moist. NECK: Trachea midline. No JVD. CARDIOVASCULAR: Regular rate and rhythm. RESPIRATORY: equal chest rise. on room air. GASTROINTESTINAL: Abdomen soft, non-tender, nondistended. MUSCULOSKELETAL: Extremities without significant peripheral edema. No obvious deformities. NEUROLOGICAL: Awake and oriented to person, place and time. RASS +1. tearful. anxious. A/P Assessment and Plan Assessment: 56yF with subacute on chronic pain with chronic opiate use and now clear signs of opiate abuse and unintentional opiate overdose. certainly she may need some small opiate component to her pain therapy for her acute pelvic fracture, however, her UDS is + for cocaine, amphetamines as well as her opiates , so her abuse potential for opiates is great, and she is not a candidate for chronic long-term opiate therapy. Will start multi-modal pain therapy which she can be more safely discharged on. will need SNF therapy given her prior history of medication noncompliance. Neuro/Psych: Acute delirium secondary to accidental oxycodone ingestion UDS (+) cocaine, amphetamines, opiates Opiate misuse/abuse Chronic central pain syndrome subacute pelvic pain secondary to fracture Patient received 0.4 mill grams of naloxone and 5 mg haloperidol and 2 mg of lorazepam in ED 05/26. CT brain revealed no acute intracranial findings Neurochecks d/c ativan. New pain regimen: tylenol 650mg po q6h ibuprofen 400mg po q6h tizanidine 4mg po q12h gabapentin 300mg po TID clonidine 0.2mg po q8h lidocaine patch to affected painful area daily oxycodone 5mg po q4h prn for breakthrough pain only. d/c iv narcotics: this is not an acute problem- this is subacute/chronic and CV: History of SVT status post ablation History of Hypertension SIRS Acute Lactic acidosis - resolved currently 0.4 IV fluids discontinued Replace electrolytes with history of SVT Previously on enalapril 2.5 mill grams by mouth daily. restarted 05/27 As needed hydralazine/Nitropaste for systolic blood pressure greater than 160 No beta blockers with cocaine use Resp: Nasal cannula to maintain saturations greater than equal to 92% Incentive spirometry while awake Chest x-ray revealed no acute cardiopulmonary findings As needed albuterol aerosols every 2 hours. Dyspnea GI: Hypoalbuminemia Heart healthy diet Famotidine for GI prophylaxis Docusate sodium/senna 1 tablet twice a day for bowel regimen : No indication for Banuelos catheter Endo: Sliding-scale insulin if indicated to maintain euglycemia Check TSH - 0.81 Renal: Creatinine currently within normal limits Monitor urine output Accurate I's and O's Heme: Microcytic anemia Leukocytosis Monitor CBC daily. Follow trends Does not meet transfusion threshold at this time ID: s/p empiric BSAbx, but negative cultures, abx stopped 05/28. Blood cultures 2 05/26 no growth Influenza negative. UA negative MSK: Sacral alae fracture right greater than left PT evaluate and treat Follow-up with Dr. Allen as outpatient 1 week FEN: Replace electrolytes as clinically indicated Access - Utilize peripheral IV Prophylaxis - GI - famotidine - DVT - SCD/heparin stable to transfer out of an inpatient setting. can go home with home health without opiate therapy, or to SNF with short course of PO opiates. Rios Allen MD May 29, 2017 12:35
[2017-05-29] MEDS: GABAPENTIN 300 MG CAP PO SCH ×2 (15:04→18:00)
[2017-05-29] MEDS: cloNIDine HCL 0.2 MG TAB PO SCH ×2 (15:04→21:56)
[2017-05-29] MEDS: LIDOCAINE HCL 5% PATCH T-DERMAL SCH (15:05)
[2017-05-29] MEDS: DULoxetine HCl DR 30 MG CAP PO SCH (15:13)
[2017-05-29] MEDS: ACETAMINOPHEN 325 MG TAB PO SCH ×2 (15:13→18:00)
[2017-05-29] MEDS: IBUPROFEN 400 MG TAB PO SCH ×2 (15:14→21:56)
[2017-05-29] MEDS ORDERED: ACET325T15 PO (17:34)
[2017-05-29] MEDS ORDERED: NEUR300C PO (17:34)
[2017-05-29] MEDS ORDERED: CLON.2 PO (17:34)
[2017-05-29] MEDS ORDERED: ENAL5TAB PO (17:34)
[2017-05-29] MEDS ORDERED: TIZA4 PO (17:34)
[2017-05-29] MEDS ORDERED: DULO1CAP2 PO (17:34)
[2017-05-29] MEDS ORDERED: LIDO1ADH4 T-DERMAL (17:34)
[2017-05-29] MEDS ORDERED: IBUP1TAB5 PO (17:34)
--- NOTE | 2017-05-29 17:35 | HHI.FF ---
Face to Face Verification Diagnosis: (1) Opiate overdose (2) Amphetamine delirium (3) Cocaine abuse Physical Therapy Order: Evaluate and Treat, Improve ambulation, Strength and gait training Home Health Nursing Order: Medical education Medication education-adverse effect I have seen patient Amy Mane on 05/29/17. My clinical findings support the need for the requested home health care services because: Ltd mobility - disease progression Deconditioned w/ increased weakness Med compliance is questionable Limited ability to care for self Need for psychosocial assistance Impaired cognition/judgement High risk of falls I certify that my clinical findings support that this patient is homebound because: Impaired cognitive ability/safety Unsteady gait/balance Need for psychosocial assistance Rios Allen MD May 29, 2017 17:35
--- NOTE | 2017-05-29 17:39 | HHI.DS ---
Discharge Summary Admission Date May 26, 2017 at 03:36 Discharge Date: May 30, 2017 Admitting Diagnosis Overdose, Polysubstance abuse, sepsis (1) Cocaine abuse ICD Code: F14.10 - Cocaine abuse, uncomplicated Diagnosis: Principal (2) Amphetamine delirium ICD Code: F15.921 - Other stimulant use, unspecified with intoxication delirium Diagnosis: Principal (3) Microcytic anemia ICD Code: D50.9 - Iron deficiency anemia, unspecified Diagnosis: Secondary (4) Hypomagnesemia ICD Code: E83.42 - Hypomagnesemia Diagnosis: Principal (5) Hypoalbuminemia ICD Code: E88.09 - Other disorders of plasma-protein metabolism, not elsewhere classified Diagnosis: Secondary (6) Lactic acidosis ICD Code: E87.2 - Acidosis Diagnosis: Principal (7) Hypocalcemia ICD Code: E83.51 - Hypocalcemia Diagnosis: Principal (8) Leukocytosis ICD Code: D72.829 - Elevated white blood cell count, unspecified Diagnosis: Secondary (9) Sacral fracture ICD Code: S32.10XA - Unspecified fracture of sacrum, initial encounter for closed fracture Diagnosis: Secondary (10) Accidental overdose ICD Code: T50.901A - Poisoning by unspecified drugs, medicaments and biological substances, accidental (unintentional), initial encounter Diagnosis: Principal Status: Acute (11) Opiate overdose ICD Code: T40.601A - Poisoning by unspecified narcotics, accidental ( unintentional), initial encounter Diagnosis: Principal Status: Acute (12) Acute psychosis ICD Code: F23 - Brief psychotic disorder Diagnosis: Principal Status: Acute (13) SIRS (systemic inflammatory response syndrome) ICD Code: R65.10 - Systemic inflammatory response syndrome (SIRS) of non- infectious origin without acute organ dysfunction Diagnosis: Principal Brief History 56-year-old female. Admission 05/26/2017. Past medical history includes recent sacral alae fracture, history of SVT, scoliosis, ongoing tobaccoism and history of SVT status post ablation patient was discharged 05/25 with a supply of long-acting OxyContin 10 mg #14 and oxycodone/acetaminophen 5/ 325 #42 for pain management. Follow-up appointment with Dr. Allen orthopedics and sent home with a 100 Late last night, patient was found by with decreased responsiveness and shallow respirations prompting the 911 call. Upon EMS arrival, patient's noted she stopped breathing, however EMS noted the patient to be breathing on her own with sonorous respirations and pinpoint pupils. Naloxone 0.4 mg administered, patient awakened, became combative. As per EMS, patient is eliciting psychotic features during transport, possibly responding to auditory hallucinations as well. Patient continues writhing & psychotic behavior in ED CT brain showed no acute findings. Chest x-ray showed no acute findings infected. UA negative. Blood cultures 2 and influenza are pending. Patient leukocytosis of 17,000. Due to her mental status the remote sensing engineer were asked to admit patient for observation to ICU In the ED, patient received one dose of vancomycin started piperacillin/ tazobactam for presumed sepsis. This was continued per overnight remote sensing engineer order set. Patient received 5 mg of haloperidol 2 mg of lorazepam due to agitation. CBC/BMP: 05/29/17 0507 05/29/17 0507 Significant Findings Laboratory Tests Test 05/27/17 03:55 05/28/17 04:05 05/29/17 05:07 Red Blood Count 3.47 MIL/MM3 (4.00-5.30) 3.90 MIL/MM3 (4.00-5.30) Hemoglobin 8.6 GM/DL (11.6-15.3) 10.2 GM/DL (11.6-15.3) 9.8 GM/DL (11.6-15.3) Hematocrit 27.1 % (35.0-46.0) 31.1 % (35.0-46.0) 30.3 % (35.0-46.0) Mean Corpuscular Volume 78.0 FL (80.0-100.0) 76.2 FL (80.0-100.0) 77.9 FL (80.0-100.0) Mean Corpuscular Hemoglobin 24.7 PG (27.0-34.0) 25.1 PG (27.0-34.0) 25.2 PG (27.0-34.0) Mean Corpuscular Hemoglobin Concent 31.6 % (32.0-36.0) Mean Platelet Volume 6.8 FL (7.0-11.0) 6.9 FL (7.0-11.0) Monocytes (%) (Auto) 8.4 % (0.0-8.0) Eosinophils (%) (Auto) 5.7 % (0.0-4.0) Albumin 2.6 GM/DL (3.4-5.0) Calcium Level 7.8 MG/DL (8.5-10.1) Alkaline Phosphatase 129 U/L (45-117) Chloride Level 109 MEQ/L (98-107) Anion Gap 4 MEQ/L (5-15) Troponin I LESS THAN 0.02 NG/ML Red Cell Distribution Width 17.3 % (11.6-17.2) 17.4 % (11.6-17.2) Blood Urea Nitrogen 4 MG/DL (7-18) 5 MG/DL (7-18) Estimat Glomerular Filtration Rate 83 ML/MIN (>89) Platelet Count 464 TH/MM3 (150-450) Hospital Course 56-year-old female. Admission 05/26/2017. Past medical history includes recent sacral alae fracture, history of SVT, scoliosis, ongoing tobaccoism and history of SVT status post ablation patient was discharged 05/25 with a supply of long-acting OxyContin 10 mg #14 and oxycodone/acetaminophen 5/ 325 #42 for pain management. Follow-up appointment with Dr. Allen orthopedics and sent home with a 100 Late last night, patient was found by with decreased responsiveness and shallow respirations prompting the 911 call. Upon EMS arrival, patient's noted she stopped breathing, however EMS noted the patient to be breathing on her own with sonorous respirations and pinpoint pupils. Naloxone 0.4 mg administered, patient awakened, became combative. As per EMS, patient is eliciting psychotic features during transport, possibly responding to auditory hallucinations as well. Patient continues writhing & psychotic behavior in ED CT brain showed no acute findings. Chest x-ray showed no acute findings infected. UA negative. Blood cultures 2 and influenza are pending. Patient leukocytosis of 17,000. Due to her mental status the remote sensing engineer were asked to admit patient for observation to ICU In the ED, patient received one dose of vancomycin started piperacillin/ tazobactam for presumed sepsis. This was continued per overnight remote sensing engineer order set. Patient received 5 mg of haloperidol 2 mg of lorazepam due to agitation. 05/27: Patient currently resting currently in bed. Complaining of pain with movement. Requesting additional pain management for physical therapy. Tolerating diet. 05/28: Afebrile. Currently standing in room with walker. Pain much better controlled. Plan to discharge to rehabilitation tomorrow. Tolerating diet. No bowel movement today 05/29: remains afebrile. tearful on exam. she states she cannot live in pain like this. when I expressed that she nearly from opiate overdose, she states that she did not try and kill herself, but she would rather be than in this much pain. she restates she does not want to hurt herself. she denies any other complaints, but will not answer any other questions that aren't related to her pain. Unfortunately, no SNF would accept the patient due to her comorbid active substance abuse and her recent overdose. The patient is a safe discharge home as long as she does not have prescription opiate medication. I explained this at length. the patient has poor insight and kept asking why she could not go home with narcotics. when I explained she very recently overdosed and had been home less than 48h, she states that "the hospital did that to me, I didn't do that." I did offer to give her a referral to chronic pain clinic. She can go tomorrow morning when pharmacies are open and she has access to all the non- narcotic pain alternatives I have prescribed. She is a safe discharge home without narcotic pain medication. Pt Condition on Discharge: Stable Discharge Disposition: Disch w/ Home Health Serv Discharge Instructions DIET: Follow Instructions for: As Tolerated, No Restrictions Speech Therapy-Diet Recommends: Regular, Pureed Activities you can perform: Regular-No Restrictions Rios Allen MD May 29, 2017 17:39
[2017-05-29] MEDS ORDERED: REMOVE OLD LIDOCAINE PATCH T-DERMAL SCH (21:00)
[2017-05-30] VITALS: BP 128/70; PULSE 50; PULSE 58; RESP 18; TEMP 97.3; O2SAT 98
[2017-05-30] MEDS: IBUPROFEN 400 MG TAB PO SCH ×3 (00:53→08:42)
[2017-05-30] MEDS: ACETAMINOPHEN 325 MG TAB PO SCH ×3 (03:16→12:30)
[2017-05-30 04:00] VITALS: BP 109/62; PULSE 52; PULSE 70; RESP 18; TEMP 97.6; O2SAT 98
[2017-05-30 04:12] VITALS: O2SAT 98
[2017-05-30] MEDS: cloNIDine HCL 0.2 MG TAB PO SCH (05:07)
[2017-05-30 07:03] VITALS: PULSE 53
[2017-05-30 08:00] VITALS: BP 111/63; PULSE 54; RESP 18; TEMP 98.4; O2SAT 98
[2017-05-30] MEDS: INSULIN NovoLIN REGULAR SUPPLEMENTAL SCALE SQ SCH ×2 (08:00→12:00)
[2017-05-30] MEDS: DULoxetine HCl DR 30 MG CAP PO SCH (08:41)
[2017-05-30] MEDS: FAMOTIDINE 20 MG TAB PO SCH (08:42)
[2017-05-30] MEDS: ENALAPRIL MALEATE 5 MG TAB PO SCH (08:42)
[2017-05-30] MEDS: DOCUSATE SODIUM 50 MG/SENNA 8.6 MG TAB PO SCH (08:42)
[2017-05-30] MEDS: GABAPENTIN 300 MG CAP PO SCH ×2 (08:42→12:29)
[2017-05-30] MEDS: HEPARIN SODIUM - SQ 10,000 UNITS/ML VIAL SQ SCH (08:43)
[2017-05-30] MEDS: SODIUM CHLORIDE 0.9% FLUSH 10 ML FLUSH IV FLUSH SCH (08:43)
[2017-05-30] MEDS: LIDOCAINE HCL 5% PATCH T-DERMAL SCH (08:43)
[2017-05-30] MEDS: MUPIROCIN 2% OINT 1 APPLIC/GM SYR EACH NARE SCH (08:43)
[2017-05-30] MEDS ORDERED: COMMODE BEDSIDE1 MI1 (12:42)
[2017-05-30] MEDS ORDERED: WALKER/ADULT/FO1 MIS (12:43)
--- NOTE | 2017-05-30 13:54 | HHI.CCPN ---
Subjective Remarks/Hospital Course 56-year-old female. Admission 05/26/2017. Past medical history includes recent sacral alae fracture, history of SVT, scoliosis, ongoing tobaccoism and history of SVT status post ablation patient was discharged 05/25 with a supply of long-acting OxyContin 10 mg #14 and oxycodone/acetaminophen 5/ 325 #42 for pain management. Follow-up appointment with Dr. Allen orthopedics and sent home with a 100 Late last night, patient was found by with decreased responsiveness and shallow respirations prompting the 911 call. Upon EMS arrival, patient's noted she stopped breathing, however EMS noted the patient to be breathing on her own with sonorous respirations and pinpoint pupils. Naloxone 0.4 mg administered, patient awakened, became combative. As per EMS, patient is eliciting psychotic features during transport, possibly responding to auditory hallucinations as well. Patient continues writhing & psychotic behavior in ED CT brain showed no acute findings. Chest x-ray showed no acute findings infected. UA negative. Blood cultures 2 and influenza are pending. Patient leukocytosis of 17,000. Due to her mental status the architect naval were asked to admit patient for observation to ICU In the ED, patient received one dose of vancomycin started piperacillin/ tazobactam for presumed sepsis. This was continued per overnight architect naval order set. Patient received 5 mg of haloperidol 2 mg of lorazepam due to agitation. 05/27: Patient currently resting currently in bed. Complaining of pain with movement. Requesting additional pain management for physical therapy. Tolerating diet. 05/28: Afebrile. Currently standing in room with walker. Pain much better controlled. Plan to discharge to rehabilitation tomorrow. Tolerating diet. No bowel movement today 05/29: remains afebrile. tearful on exam. she states she cannot live in pain like this. when I expressed that she nearly from opiate overdose, she states that she did not try and kill herself, but she would rather be than in this much pain. she restates she does not want to hurt herself. she denies any other complaints, but will not answer any other questions that aren't related to her pain. Unfortunately, no SNF would accept the patient due to her comorbid active substance abuse and her recent overdose. The patient is a safe discharge home as long as she does not have prescription opiate medication. I explained this at length. the patient has poor insight and kept asking why she could not go home with narcotics. when I explained she very recently overdosed and had been home less than 48h, she states that "the hospital did that to me, I didn't do that." I did offer to give her a referral to chronic pain clinic. She can go tomorrow morning when pharmacies are open and she has access to all the non- narcotic pain alternatives I have prescribed. She is a safe discharge home without narcotic pain medication. 05/30: No change. Arranged for a walker and bedside commode. Ready to go. Objective Vital Signs Date Time Temp Pulse Resp B/P (MAP) Pulse Ox O2 Delivery O2 Flow Rate FiO2 05/30/17 08:00 98.4 54 18 111/63 (79) 98 05/30/17 04:12 21 05/27/17 12:00 Nasal Cannula 05/26/17 07:00 2.00 Intake and Output 05/30/17 05/30/17 05/31/17 08:00 16:00 00:00 Intake Total 480 ml 120 ml Balance 480 ml 120 ml Result Diagram: 05/29/17 0507 05/29/17 0507 Imaging Last Impressions Chest X-Ray 05/27/17 0600 Signed Impressions: Service Date/Time: Saturday, May 27, 2017 04:34 - CONCLUSION: No acute disease. Bakari Franklin MD Head CT 05/26/17 0024 Signed Impressions: Service Date/Time: Friday, May 26, 2017 02:15 - CONCLUSION: No acute disease. Bakari Franklin MD Objective Remarks GENERAL: 56-year-old female standing on room with 2 wheeled walker in no acute distress SKIN: Warm and dry. No rash. Well-perfused HEAD: Atraumatic. Normocephalic. EYES: Pupils equal and round about 2 mm bilaterally and reactive. No scleral icterus. No injection or drainage. ENT: No nasal bleeding or discharge. Mucous membranes pink and moist. NECK: Trachea midline. No JVD. CARDIOVASCULAR: Regular rate and rhythm. RESPIRATORY: equal chest rise. on room air. GASTROINTESTINAL: Abdomen soft, non-tender, nondistended. MUSCULOSKELETAL: Extremities without significant peripheral edema. No obvious deformities. NEUROLOGICAL: Awake and oriented to person, place and time. RASS +1. tearful. anxious. A/P Assessment and Plan Assessment: 56yF with subacute on chronic pain with chronic opiate use and now clear signs of opiate abuse and unintentional opiate overdose. certainly she may need some small opiate component to her pain therapy for her acute pelvic fracture, however, her UDS is + for cocaine, amphetamines as well as her opiates , so her abuse potential for opiates is great, and she is not a candidate for chronic long-term opiate therapy. Will start multi-modal pain therapy which she can be more safely discharged on. will need SNF therapy given her prior history of medication noncompliance. Neuro/Psych: Acute delirium secondary to accidental oxycodone ingestion UDS (+) cocaine, amphetamines, opiates Opiate misuse/abuse Chronic central pain syndrome subacute pelvic pain secondary to fracture Patient received 0.4 mill grams of naloxone and 5 mg haloperidol and 2 mg of lorazepam in ED 05/26. CT brain revealed no acute intracranial findings Neurochecks d/c ativan. New pain regimen: tylenol 650mg po q6h ibuprofen 400mg po q6h tizanidine 4mg po q12h gabapentin 300mg po TID clonidine 0.2mg po q8h lidocaine patch to affected painful area daily oxycodone 5mg po q4h prn for breakthrough pain only. d/c iv narcotics: this is not an acute problem- this is subacute/chronic and CV: History of SVT status post ablation History of Hypertension SIRS Acute Lactic acidosis - resolved currently 0.4 IV fluids discontinued Replace electrolytes with history of SVT Previously on enalapril 2.5 mill grams by mouth daily. restarted 05/27 As needed hydralazine/Nitropaste for systolic blood pressure greater than 160 No beta blockers with cocaine use Resp: Nasal cannula to maintain saturations greater than equal to 92% Incentive spirometry while awake Chest x-ray revealed no acute cardiopulmonary findings As needed albuterol aerosols every 2 hours. Dyspnea GI: Hypoalbuminemia Heart healthy diet Famotidine for GI prophylaxis Docusate sodium/senna 1 tablet twice a day for bowel regimen : No indication for Banuelos catheter Endo: Sliding-scale insulin if indicated to maintain euglycemia Check TSH - 0.81 Renal: Creatinine currently within normal limits Monitor urine output Accurate I's and O's Heme: Microcytic anemia Leukocytosis Monitor CBC daily. Follow trends Does not meet transfusion threshold at this time ID: s/p empiric BSAbx, but negative cultures, abx stopped 05/28. Blood cultures 2 05/26 no growth Influenza negative. UA negative MSK: Sacral alae fracture right greater than left PT evaluate and treat Follow-up with Dr. Allen as outpatient 1 week FEN: Replace electrolytes as clinically indicated Access - Utilize peripheral IV Prophylaxis - GI - famotidine - DVT - SCD/heparin stable to transfer out of an inpatient setting. can go home with home health without opiate therapy, or to SNF with short course of PO opiates. Zachary Alcala MD May 30, 2017 13:54
== END 2017-05-30 13:00 | disposition home health service (06) | DRG 918 ==
LOC: NEPE 00:15 → NEDA 03:36 → N03A 05:40 → N03B 05-27 06:21
PROVIDERS: ADMIT Emergency Medicine; ATTEND Emergency Medicine
DX: T40.2X1A Poisoning by other opioids, accidental (unintentional), initial encounter (principal); E87.2 Acidosis; R65.10 Systemic inflammatory response syndrome (SIRS) of non-infectious origin without acute organ dysfunction; E88.09 Other disorders of plasma-protein metabolism, not elsewhere classified; E83.42 Hypomagnesemia; F23 Brief psychotic disorder; S32.10XD Unspecified fracture of sacrum, subsequent encounter for fracture with routine healing; T40.601A Poisoning by unspecified narcotics, accidental (unintentional), initial encounter; M41.9 Scoliosis, unspecified; F15.10 Other stimulant abuse, uncomplicated; F14.10 Cocaine abuse, uncomplicated; D50.9 Iron deficiency anemia, unspecified; E83.51 Hypocalcemia; R45.1 Restlessness and agitation; I10 Essential (primary) hypertension; D72.829 Elevated white blood cell count, unspecified; F11.10 Opioid abuse, uncomplicated; G89.0 Central pain syndrome; Z79.891 Long term (current) use of opiate analgesic; Z90.710 Acquired absence of both cervix and uterus; W19.XXXD Unspecified fall, subsequent encounter
CPT/HCPCS: 36600; 70450; 71045; 80048; 80053; 80307; 81001; 82140; 82550; 82552; 82805; 82948; 83605; 83690; 83735; 84100; 84443; 84484; 85025; 85027; 85610; 85730; 87040; 87641; 87804; 93005; 96361; 96365; 96372; 96375; J0131; J0610; J1630; J1644; J1885; J2060; J2270; J2310; J2405; J2543; J3370; J3475; J3480; J7030; J7050; J7121; P9045

== ENCOUNTER 2017-06-13 20:42 | Inpatient (IN) | payer MEDICARE, OTHER ==
[~2017-06-13] VITALS: Ht 175.3 cm; Wt 54.7 kg
[~2017-06-13 20:42] MED LIST changes: +ACET325T15 PO; +CLON.2 PO; +COMMODE BEDSIDE1 MI1; +DULO1CAP2 PO; +ENAL5TAB PO; +IBUP1TAB5 PO; +LIDO1ADH4 T-DERMAL; +NEUR300C PO; -OXYC-103 PO; -PERC5TAB12 PO; +TIZA4 PO; +WALKER/ADULT/FO1 MIS
[2017-06-13 20:51] VITALS: BP 140/104; PULSE 120; RESP 18; O2SAT 100
[2017-06-13] MEDS ORDERED: SODIUM CHLOR 0.9% 1000 ML INJ 1,000 ML IV SCH (20:53)
[2017-06-13] MEDS ORDERED: LORazepam 2 MG/ML VIAL IV PUSH ONE ×3 (21:00→22:30)
[2017-06-13] MEDS ORDERED: THIAMINE INJ 100 MG in SODIUM CHLORIDE 0.9% INJ 100 ML IV ONE (21:00)
[2017-06-13] MEDS ORDERED: SODIUM CHLORIDE 0.9% FLUSH 10 ML FLUSH IV FLUSH PRN (21:00)
[2017-06-13] MEDS ORDERED: SODIUM CHLOR 0.9% 1000 ML INJ 1,000 ML IV ONE (21:15)
[2017-06-13] MEDS ORDERED: HALOPERIDOL LACTATE 5 MG/ML AMP IM ONE (21:15)
--- NOTE | 2017-06-13 21:22 | RADRPT ---
EXAM DATE/TIME: 06/13/2017 21:10 [facility] COMPARISON: CHEST SINGLE AP, May 27, 2017, 4:34. INDICATIONS : Syncope. Weakness. MEDICAL HISTORY : None. SURGICAL HISTORY : None. ENCOUNTER: Initial ACUITY: 1 day PAIN SCORE: Non-responsive. LOCATION: Bilateral chest FINDINGS: The lungs are clear without infiltrate, nodule, or mass. There is no appreciable pleural effusion fo r technique. Heart and mediastinum are unremarkable. CONCLUSION: No acute cardiopulmonary disease. Jeff Armijo MD on June 13, 2017 at 21:19 Board Certified Radiologist. This report was verified electronically.
[2017-06-13 21:32] LABS: AUTOMATED NEUTROPHIL # 6.5 TH/MM3 (1.8-7.7); BASOPHIL % 0.3 % (0.0-2.0); EOSINOPHIL # 0.1 TH/MM3 (0-0.4); EOSINOPHIL % 0.9 % (0.0-4.0); HEMATOCRIT 30.4 % (35.0-46.0); HEMOGLOBIN 10.3 GM/DL (11.6-15.3); LYMPH % 19.1 % (9.0-44.0); LYMPHOCYTE # 1.8 TH/MM3 (1.0-4.8); MEAN CELL VOLUME 75.3 FL (80.0-100.0); MEAN CORPUSCULAR HEMOGLOBIN 25.6 PG (27.0-34.0); MEAN PLATELET VOLUME 6.5 FL (7.0-11.0); MONO % 9.8 % (0.0-8.0); MONOCYTE # 0.9 TH/MM3 (0-0.9); NEUT % 69.9 % (16.0-70.0); PLATELET COUNT 600 TH/MM3 (150-450); RED BLOOD COUNT 4.04 MIL/MM3 (4.00-5.30); RED CELL DISTRIBUTION WIDTH 17.4 % (11.6-17.2); WHITE BLOOD COUNT 9.2 TH/MM3 (4.0-11.0)
[2017-06-13 21:46] LABS: ALBUMIN 3.1 GM/DL (3.4-5.0); AST (GOT) 24 U/L (15-37); BICARBONATE 28.5 MEQ/L (21.0-32.0); BLOOD UREA NITROGEN 17 MG/DL (7-18); CALCIUM 9.3 MG/DL (8.5-10.1); CHLORIDE 94 MEQ/L (98-107); CREATININE 0.85 MG/DL (0.50-1.00); GLOMERULAR FILTRATION RATE 69 ML/MIN (>89); GLUCOSE,RANDOM 95 MG/DL (74-106); SODIUM (NA) 130 MEQ/L (136-145)
[2017-06-13 21:48] LABS: INTERNATIONAL NORMALIZED RATIO 1.1 RATIO
[2017-06-13 21:58] LABS: ALKALINE PHOSPHATASE 246 U/L (45-117); ALT (GPT) 11 U/L (10-53); TOTAL BILIRUBIN ADULT 0.2 MG/DL (0.2-1.0); TOTAL PROTEIN 8.3 GM/DL (6.4-8.2); TROPONIN I LESS THAN 0.02 NG/ML (0.02-0.05)
[2017-06-13 21:59] LABS: ACETAMINOPHEN LESS THAN 2.0 MCG/ML (10.0-30.0)
[2017-06-13 22:02] LABS: BACTERIA, URINE MOD /hpf; BILIRUBIN, URINE NEG (NEG); BLOOD, URINE SMALL (NEG); GLUCOSE,URINE NEG (NEG); HYALINE CAST, URINE 29 /lpf (RARE); KETONE, URINE NEG (NEG); MUCUS URINE FEW /lpf (OCC); NITRITE,URINE NEG (NEG); PH, URINE 5.5 (5.0-8.5); SQUAMOUS EPITHELIAL CELL URINE 1 /hpf (0-5); URINE COLOR YELLOW (YELLW/STRAW); URINE LEUKOCYTE ESTERASE SMALL (NEG); WHITE BLOOD CELL CLUMPS RARE
[2017-06-13] MEDS ORDERED: cefTRIAXone INJ 1,000 MG in SODIUM CHLORIDE 0.9% INJ 100 ML IV ONE (22:30)
--- NOTE | 2017-06-13 22:45 | RADRPT ---
EXAM DATE/TIME: 06/13/2017 22:29 [facility] COMPARISON: CT LUMBAR SPINE W/O CONTRAST, May 24, 2017, 13:33. PELVIS AP ONLY, May 24, 2017, 13:54. INDICATIONS : Fracture. History of sacral fracture. MEDICAL HISTORY : None. SURGICAL HISTORY : None. ENCOUNTER: Initial ACUITY: 1 day PAIN SCORE: Non-responsive. LOCATION: pelvis. FINDINGS: Patient has known sacral fractures best seen on prior lumbar spine CT difficult to visualize, however the left side is questionably identified. The sacrum is obscured by gas. CONCLUSION: Gross anatomical alignment of previously seen sacral fractures difficult to visualize. Jeff Armijo MD on June 13, 2017 at 22:41 Board Certified Radiologist. This report was verified electronically.
--- NOTE | 2017-06-13 22:59 | PD ---
HPI Chief Complaint: Psychiatric Symptoms Time Seen by Provider: 20:53 Travel History International Travel<30 days: No Contact w/Intl Traveler<30days: No Traveled to known affect area: No History of Present Illness HPI 56-year-old female presents to the emergency department by EMS transport from home where she lives with her mother where she was reportedly found in the bathtub acting strange and behaving erratically. No report of any injury. No report of whether or not there was water in the bathtub. Patient by review of medical record was recently hospitalized 05/28/17 as an opiate overdose and evaluated 05/24/17 for sacral fracture after falling off roof. Patient here provides only history that she used methamphetamine and is erratic and demonstrates altered mentation yelling and screaming and rocking back and forth on exam stretcher. No obvious soft tissue injuries identified and no limb deformity and moves limbs appropriately and symmetrically. Patient is able to offer any history. History provided by paramedics. Patient did require administration of Versed 2 mg IM in route to the hospital. Reportedly per EMS per the patient's mother, mother reported that patient has been off her mental health medications for a while. Reportedly took trazodone per nurse PFS Past Medical History Narrative Medical Arthritis SVT hypertension polysubstance abuse sacral fracture methamphetamine abuse oxycodone abuse tobacco abuse; hysterectomy cardiac ablation; nursing notes reviewed Arthritis: Yes Heart Rhythm Problems: Yes Cancer: No Cardiovascular Problems: Yes (SVT) Endocrine: No Genitourinary: No Immune Disorder: No Musculoskeletal: Yes Neurologic: No Psychiatric: Yes Reproductive: No Respiratory: No ?: Not Past Surgical History Cardiac Surgery: Yes (SVT ABLATION) Hysterectomy: Yes Social History Alcohol Use: No Tobacco Use: Yes (packevery two days ) Substance Use: Yes (METH, OXY) Allergies-Medications (Allergen,Severity, Reaction): Coded Allergies: Sulfa (Sulfonamide Antibiotics) (Unverified Allergy, Severe, 05/24/17) Reported Meds & Prescriptions Reported Meds & Active Scripts Active Walker/Adult/Folding (Device) 1 Mis Mis Ea .ROUTE DIRECTED Commode Bedside (Device) 1 Mis Mis Ea .ROUTE DIRECTED Lidoderm (Lidocaine) 5 % Adh..patch 1 Patch T-DERMAL DAILY [address] (Duloxetine HCl) 30 Mg Capdr 30 Mg PO DAILY 14 Days Neurontin (Gabapentin) 300 Mg Cap 300 Mg PO TID 14 Days Eq Acetaminophen (Acetaminophen) 325 Mg Tab 650 Mg PO Q6H 14 Days Ibuprofen 400 Mg Tab 400 Mg PO Q6H 14 Days Enalapril (Enalapril Maleate) 5 Mg Tab 2.5 Mg PO BID 30 Days Catapres (Clonidine) 0.2 Mg Tab 0.2 Mg PO Q8HR 30 Days Zanaflex (Tizanidine HCl) 4 Mg Tab 4 Mg PO Q12HR 14 Days Commode 3-in-1 (Device) 1 Mis Mis Ea .ROUTE DIRECTED Walker with Front Wheels (Device) 1 Mis Mis Ea .ROUTE DIRECTED Review of Systems ROS Limitations: Altered Mental Status, Poor Historian Except as stated in HPI: all other systems reviewed are Neg Physical Exam Narrative GENERAL: Well-developed well-nourished female in no respiratory distress yelling and screaming with altered mentation intermittently responds to her name and answers questions appropriately and then again becomes erratic in her behavior SKIN: Warm and dry. HEAD: Atraumatic. Normocephalic. EYES: Pupils equal and round. No scleral icterus. No injection or drainage. ENT: No nasal bleeding or discharge. Mucous membranes pink and moist. Upper denture in place. NECK: Trachea midline. No JVD. No midline tenderness to direct palpation or bony step-off. CARDIOVASCULAR: Increased regular rate and rhythm. RESPIRATORY: No accessory muscle use. Clear to auscultation. Breath sounds equal bilaterally. GASTROINTESTINAL: Abdomen soft, non-tender, nondistended. Hepatic and splenic margins not palpable. MUSCULOSKELETAL: Extremities without clubbing, cyanosis, or edema. No obvious deformities. NEUROLOGICAL: Awake and alert and confused. No obvious cranial nerve deficits. Motor grossly within normal limits. Five out of 5 muscle strength in the arms and legs. Normal speech. PSYCHIATRIC: Inappropriate mood and affect;lack of insight or judgment. Data Data Last Documented VS Vital Signs Date Time Temp Pulse Resp B/P (MAP) Pulse Ox O2 Delivery O2 Flow Rate FiO2 06/14/17 00:05 99.0 100 20 193/119 (143) 100 Room Air Orders Orders Electrocardiogram (06/13/17 20:53) Ammonia (06/13/17 20:53) Complete Blood Count With Diff (06/13/17 20:53) Comprehensive Metabolic Panel (06/13/17 20:53) Creatine Kinase (Cpk) (06/13/17 20:53) Prothrombin Time / Inr (Pt) (06/13/17 20:53) Act Partial Throm Time (Ptt) (06/13/17 20:53) Troponin I (06/13/17 20:53) Thyroid Stimulating Hormone (06/13/17 20:53) Urinalysis - C+S If Indicated (06/13/17 20:53) Chest, Single Ap (06/13/17 20:53) Ct Brain W/O Iv Contrast(Rout) (06/13/17 20:53) Blood Glucose (06/13/17 20:53) Ecg Monitoring (06/13/17 20:53) Iv Access Insert/Monitor (06/13/17 20:53) Oximetry (06/13/17 20:53) Sodium Chloride 0.9% Flush (Ns Flush) (06/13/17 21:00) Sodium Chlor 0.9% 1000 Ml Inj (Ns 1000 M (06/13/17 20:53) Thiamine Inj (Thiamine Inj) (06/13/17 21:00) Drug Screen, Random Urine (06/13/17 20:53) Alcohol (Ethanol) (06/13/17 20:53) Tylenol (Acetaminophen) (06/13/17 20:53) Salicylates (Aspirin) (06/13/17 20:53) Restraints Non-Violent ARIANE.Q3H (06/13/17 20:53) Lorazepam Inj (Ativan Inj) (06/13/17 21:00) Haloperidol Inj (Haldol Inj) (06/13/17 21:15) Lorazepam Inj (Ativan Inj) (06/13/17 21:15) Sodium Chlor 0.9% 1000 Ml Inj (Ns 1000 M (06/13/17 21:15) Urine Culture (06/13/17 21:45) Pelvis, Ap Only (Routine) (06/13/17 ) Lorazepam Inj (Ativan Inj) (06/13/17 22:30) Blood Culture (06/13/17 22:22) Lactic Acid (06/13/17 22:22) Ceftriaxone Inj (Rocephin Inj) (06/13/17 22:30) Lorazepam Inj (Ativan Inj) (06/14/17 00:00) Labs Laboratory Tests Test 06/13/17 21:10 06/13/17 21:12 06/13/17 21:45 06/13/17 22:30 White Blood Count 9.2 TH/MM3 Red Blood Count 4.04 MIL/MM3 Hemoglobin 10.3 GM/DL Hematocrit 30.4 % Mean Corpuscular Volume 75.3 FL Mean Corpuscular Hemoglobin 25.6 PG Mean Corpuscular Hemoglobin Concent 34.0 % Red Cell Distribution Width 17.4 % Platelet Count 600 TH/MM3 Mean Platelet Volume 6.5 FL Neutrophils (%) (Auto) 69.9 % Lymphocytes (%) (Auto) 19.1 % Monocytes (%) (Auto) 9.8 % Eosinophils (%) (Auto) 0.9 % Basophils (%) (Auto) 0.3 % Neutrophils # (Auto) 6.5 TH/MM3 Lymphocytes # (Auto) 1.8 TH/MM3 Monocytes # (Auto) 0.9 TH/MM3 Eosinophils # (Auto) 0.1 TH/MM3 Basophils # (Auto) 0.0 TH/MM3 CBC Comment DIFF FINAL Differential Comment Prothrombin Time 11.0 SEC Prothromb Time International Ratio 1.1 RATIO Activated Partial Thromboplast Time 34.6 SEC Blood Urea Nitrogen 17 MG/DL Creatinine 0.85 MG/DL Random Glucose 95 MG/DL Total Protein 8.3 GM/DL Albumin 3.1 GM/DL Calcium Level 9.3 MG/DL Alkaline Phosphatase 246 U/L Aspartate Amino Transf (AST/SGOT) 24 U/L Alanine Aminotransferase (ALT/SGPT) 11 U/L Total Bilirubin 0.2 MG/DL Sodium Level 130 MEQ/L Potassium Level 4.4 MEQ/L Chloride Level 94 MEQ/L Carbon Dioxide Level 28.5 MEQ/L Anion Gap 8 MEQ/L Estimat Glomerular Filtration Rate 69 ML/MIN Ammonia 12 MCMOL/L Total Creatine Kinase 55 U/L Troponin I LESS THAN 0.02 NG/ML Thyroid Stimulating Hormone 3rd Gen 1.010 uIU/ML Acetaminophen Level LESS THAN 2.0 MCG/ML Ethyl Alcohol Level LESS THAN 3 MG/DL Salicylates Level 4.0 MG/DL Urine Color YELLOW Urine Turbidity HAZY Urine pH 5.5 Urine Specific [place] 1.024 Urine Protein 30 mg/dL Urine Glucose (UA) NEG mg/dL Urine Ketones NEG mg/dL Urine Occult Blood SMALL Urine Nitrite NEG Urine Bilirubin NEG Urine Urobilinogen 2.0 MG/DL Urine Leukocyte Esterase SMALL Urine RBC 5 /hpf Urine WBC 3 /hpf Urine WBC Clumps RARE Urine Squamous Epithelial Cells 1 /hpf Urine Bacteria MOD /hpf Urine Hyaline Casts 29 /lpf Urine Granular Casts 3 /lpf Urine Mucus FEW /lpf Microscopic Urinalysis Comment CATH-CULTURE IND Urine Opiates Screen POS Urine Barbiturates Screen NEG Urine Amphetamines Screen POS Urine Benzodiazepines Screen POS Urine Cocaine Screen POS Urine Cannabinoids Screen POS Lactic Acid Level 2.4 mmol/L MDM Medical Decision Making Medical Screen Exam Complete: Yes Emergency Medical Condition: Yes Medical Record Reviewed: Yes Interpretation(s) EKG: Sinus tachycardia rate [address] elevation injury pattern or ectopy noted Last Impressions Chest X-Ray 06/13/[id number] Signed Impressions: Service Date/Time: Tuesday, June 13, 2017 21:10 - CONCLUSION: No acute cardiopulmonary disease. Jeff Armijo MD Pelvis X-Ray 06/13/17 0000 Signed Impressions: Service Date/Time: Tuesday, June 13, 2017 22:29 - CONCLUSION: Gross anatomical alignment of previously seen sacral fractures difficult to visualize. Jeff Armijo MD CBC & BMP Diagram 06/13/17 21:10 Total Protein 8.3 H, Albumin 3.1 L, Calcium Level 9.3, Alkaline Phosphatase 246 H, Aspartate Amino Transf (AST/SGOT) 24, Alanine Aminotransferase (ALT/SGPT) 11 , Total Bilirubin 0.2 Vital Signs Date Time Temp Pulse Resp B/P (MAP) Pulse Ox O2 Delivery O2 Flow Rate FiO2 06/13/17 20:51 120 18 140/104 (116) 100 Differential Diagnosis Altered mental status, polysubstance ingestion, toxic/intoxicant delirium, metabolic encephalopathy, minor closed head injury, ICH, seizure Narrative Course Patient placed on monitoring manager with continuous pulse oximetry soft restraints applied IV access obtained specimens collected and sent for resulting patient given bolus of normal saline Patient continues to be erratic in behavior and combative patient administered Ativan 1 mg IV and Haldol 5 mg IM Ativan 2 mg IV administered imaging studies ordered Chest x-ray no acute process EKG sinus rhythm no acute injury pattern; CBC values grossly within normal range coagulation studies values grossly within normal range metabolic panel patient with mild hyponatremia of 130 also identified to have elevated alk phos of 246; serum ammonia level was not elevated at 12; CK total was 55 and not elevated troponin I is less than 0.02, not elevated; TSH value is within normal range; cath specimen on urinalysis shows white blood cells and bacteria cultures indicated blood cultures and lactic acid obtained and patient administered Rocephin 1 g toxicology screen is remarkable for amphetamines and benzodiazepines cocaine and cannabinoids; Tylenol level is less than 2, not elevated salicylate level is 4.0 not elevated but will be repeated to alcohol is less than 3 pelvis x-ray CT brain noncontrast CT brain noncontrast reveals no acute abnormality; pelvis x-ray reveals no acute displaced sacral fracture Patient given additional dose of Ativan 1 mg; plan will be to admit patient to watchguard service in view of acute polysubstance ingestion with psychosis and delirium along with UTI white cell count is within normal limits and no left shift by automated differential; patient does have an elevated lactic acid of 2.4 this will be repeated; blood cultures have been obtained; urine drug screen is positive for opiates and amphetamines cocaine and cannabinoids. Sepsis Criteria SIRS Criteria (2 or more): Heart rate over 90 Sepsis Criteria (SIRS+source): Infect source susp/known (urine) Diagnosis Primary Impression: Amphetamine delirium Additional Impressions: UTI (urinary tract infection) Cocaine abuse Polysubstance abuse Psychosis Admitting Information Admitting Physician Requests: Admit Eileen Conley MD Jun 13, 2017 22:58
[2017-06-14] VITALS (12 sets, daily range): BP systolic 108–193; BP diastolic 64–119; PULSE 63–110; RESP 20–42; TEMP 97.4–99.1; O2SAT 98–100
--- NOTE | 2017-06-14 00:01 | RADRPT ---
EXAM DATE/TIME: 06/13/2017 23:46 [facility] COMPARISON: CT BRAIN W/O CONTRAST, May 26, 2017, 2:15. INDICATIONS : Altered mental status; possible overdose. RADIATION DOSE: 56.35 CTDIvol (mGy) MEDICAL HISTORY : Cardiovascular disease. substance abuse SURGICAL HISTORY : Hysterectomy. ENCOUNTER: Initial ACUITY: 1 day PAIN SCALE: Non-responsive LOCATION: cranial TECHNIQUE: Multiple contiguous axial images were obtained of the head. Using automated exposure control and adj ustment of the mA and/or kV according to patient size, radiation dose was kept as low as reasonably a chievable to obtain optimal diagnostic quality images. DICOM format image data is available electro nically for review and comparison. FINDINGS: CEREBRUM: The ventricles are normal for age. No evidence of midline shift, mass lesion, hemorrhage or acute in farction. No extra-axial fluid collections are seen. POSTERIOR FOSSA: The cerebellum and brainstem are intact. The 4th ventricle is midline. The cerebellopontine angle i s unremarkable. EXTRACRANIAL: The visualized portion of the orbits is intact. SKULL: The calvaria is intact. No evidence of skull fracture. CONCLUSION: Normal examination. Tutu Chance MD on June 13, 2017 at 23:59 Board Certified Radiologist. This report was verified electronically.
[2017-06-14] MEDS ORDERED: LORazepam 2 MG/ML VIAL IV PUSH ONE ×3 (00:15→04:15)
--- NOTE | 2017-06-14 04:45 | HHI.HP ---
HPI Service Critical Care Medicine Primary Care Physician Unknown Admission Diagnosis polysubstance induced delerium; uti Diagnosis: (1) Cocaine abuse Diagnosis: Principal (2) Amphetamine delirium Diagnosis: Principal (3) Closed sacral fracture Diagnosis: Secondary (4) Tobacco abuse Diagnosis: Secondary (5) Polysubstance abuse Diagnosis: Secondary (6) Thrombocytosis Diagnosis: Secondary (7) Anemia Diagnosis: Secondary Travel History International Travel<30 Days: No Contact w/Intl Traveler <30 Da: No Traveled to Known Affected Are: No History of Present Illness 56 yo female with PMH of chronic pain, polysubstance abuse, SVT with prior ablation, tobacco abuse who was brought into [facility] emergency department when her mother found her in their bathtub with agitated behavior. Patient provided history that she used methamphetamine. She was administered Versed 2 mg IM in route to the hospital. She received Haldol 5 mg IM and Ativan 6 mg IV in the emergency department. Urine drug screen was positive for opiates, amphetamines, benzodiazepines, cocaine, and cannabinoids.. CT brain is negative. Creatinine is normal. CPK is 55. Troponin is 0.02. She has recent admission to [facility] ICU from 05/26 through 05/30 and she was brought in by [facility] for unresponsiveness. She was noted to have opioid overhead dose and awakened following Narcan but then had psychotic behavior. She complained of pain related to sacral fracture and she was started on the following regimen: tylenol 650mg po q6h;ibuprofen 400mg po q6h; tizanidine 4mg po q12h;gabapentin 300mg po TID;clonidine 0.2mg po q8h;lidocaine patch to affected painful area daily. It is unclear if she is taking these. Efforts were made at placement in SNF during last hospitalization but none would accept her. Review of Systems ROS Limitations: Altered Mental Status, Uncooperative Past Family Social History Allergies: Coded Allergies: Sulfa (Sulfonamide Antibiotics) (Unverified Allergy, Severe, 05/24/17) Past Medical History Scoliosis History of SVT status post ablation Ongoing tobaccoism History of polysubstance abuse including cocaine and amphetamines Hypertension Past Surgical History Hysterectomy Bilateral shoulder arthroplasty Reported Medications Zanaflex 4 milligrams by mouth every 12 Catapres 0.2 mg by mouth every 8 hours Ibuprofen 400 mg by mouth every 6 hours Tylenol 650 mg by mouth every 6 hours Neurontin 300 mg by mouth 3 times a day Duloxetine 30 mill grams by mouth daily Lidoderm patch daily Enalapril 2.5 mill grams by mouth twice a day Family History Unable to attain from patient due to clinical condition. Per EMR there is no family history of diabetes, hypertension, coronary artery disease or sudden cardiac . Social History Unable to obtain from patient due to clinical condition. Prior records indicate that she has ongoing tobacco abuse No alcohol use Urine drug screen positive for amphetamines and cocaine. Prior opioid overdose in May 2017 Physical Exam Vital Signs Vital Signs Date Time Temp Pulse Resp B/P (MAP) Pulse Ox O2 Delivery O2 Flow Rate FiO2 06/14/17 04:00 97.5 109 32 187/98 (127) 99 06/14/17 04:00 109 06/14/17 02:57 06/14/17 02:40 98.5 110 20 187/110 (135) 99 06/14/17 00:05 99.0 100 20 193/119 (143) 100 Room Air 06/13/17 20:51 120 18 140/104 (116) 100 Physical Exam GENERAL: Thin disheveled female who is restless in bed, intermittently yelling incomprehensibly. SKIN: Warm and dry. HEAD: Atraumatic. Normocephalic. EYES: Pupils equal and round, 3mm and sluggish. . No scleral icterus. No injection or drainage. ENT: No nasal bleeding or discharge. Mucous membranes dry NECK: Trachea midline. No JVD. CARDIOVASCULAR: Tachycardic, Regular . No murmurs rubs or gallops. RESPIRATORY: No accessory muscle use. Clear to auscultation. Breath sounds equal bilaterally. On RA. GASTROINTESTINAL: Abdomen soft, non-tender, nondistended. Hepatic and splenic margins not palpable. MUSCULOSKELETAL: Extremities without clubbing, cyanosis, or edema. No obvious deformities. NEUROLOGICAL: Awake and alert. Agitated restless, moving all extremities. Does not answer questions of orientation. intermittently moaning, speaking incomprehensible words. Laboratory Laboratory Tests Test 06/13/17 21:10 06/13/17 21:12 06/13/17 21:45 06/13/17 22:30 White Blood Count 9.2 Red Blood Count 4.04 Hemoglobin 10.3 Hematocrit 30.4 Mean Corpuscular Volume 75.3 Mean Corpuscular Hemoglobin 25.6 Mean Corpuscular Hemoglobin Concent 34.0 Red Cell Distribution Width 17.4 Platelet Count 600 Mean Platelet Volume 6.5 Neutrophils (%) (Auto) 69.9 Lymphocytes (%) (Auto) 19.1 Monocytes (%) (Auto) 9.8 Eosinophils (%) (Auto) 0.9 Basophils (%) (Auto) 0.3 Neutrophils # (Auto) 6.5 Lymphocytes # (Auto) 1.8 Monocytes # (Auto) 0.9 Eosinophils # (Auto) 0.1 Basophils # (Auto) 0.0 CBC Comment DIFF FINAL Differential Comment Prothrombin Time 11.0 Prothromb Time International Ratio 1.1 Activated Partial Thromboplast Time 34.6 Blood Urea Nitrogen 17 Creatinine 0.85 Random Glucose 95 Total Protein 8.3 Albumin 3.1 Calcium Level 9.3 Alkaline Phosphatase 246 Aspartate Amino Transf (AST/SGOT) 24 Alanine Aminotransferase (ALT/SGPT) 11 Total Bilirubin 0.2 Sodium Level 130 Potassium Level 4.4 Chloride Level 94 Carbon Dioxide Level 28.5 Anion Gap 8 Estimat Glomerular Filtration Rate 69 Ammonia 12 Total Creatine Kinase 55 Troponin I LESS THAN 0.02 Thyroid Stimulating Hormone 3rd Gen 1.010 Acetaminophen Level LESS THAN 2.0 Ethyl Alcohol Level LESS THAN 3 Salicylates Level 4.0 Urine Color YELLOW Urine Turbidity HAZY Urine pH 5.5 Urine Specific [place] 1.024 Urine Protein 30 Urine Glucose (UA) NEG Urine Ketones NEG Urine Occult Blood SMALL Urine Nitrite NEG Urine Bilirubin NEG Urine Urobilinogen 2.0 Urine Leukocyte Esterase SMALL Urine RBC 5 Urine WBC 3 Urine WBC Clumps RARE Urine Squamous Epithelial Cells 1 Urine Bacteria MOD Urine Hyaline Casts 29 Urine Granular Casts 3 Urine Mucus FEW Microscopic Urinalysis Comment CATH-CULTURE IND Urine Opiates Screen POS Urine Barbiturates Screen NEG Urine Amphetamines Screen POS Urine Benzodiazepines Screen POS Urine Cocaine Screen POS Urine Cannabinoids Screen POS Lactic Acid Level 2.4 Test 06/14/17 00:28 06/14/17 02:30 Lactic Acid Level 0.9 Date/Time Source Procedure Growth Status 06/13/17 22:30 Blood Peripheral Aerobic Blood Culture Pending Received 06/13/17 22:30 Blood Peripheral Anaerobic Blood Culture Pending Received 06/13/17 21:45 Urine Catheterized Urine Urine Culture Pending Received Result Diagram: 06/13/17210906/13/170 Caprini VTE Risk Assessment Caprini VTE Risk Assessment: Mod/High Risk (score >= 2) Caprini Risk Assessment Model Point Value = 1 Point Value = 2 Point Value = 3 Point Value = 5 Age 41-60 Minor surgery BMI > 25 kg/m2 Swollen legs Varicose veins or History of unexplained or recurrent spontaneous Oral contraceptives or hormone replacement Sepsis (< 1 month) Serious lung disease, including pneumonia (< 1 month) Abnormal pulmonary function Acute myocardial infarction Congestive heart failure (< 1 month) History of inflammatory bowel disease Medical patient at bed rest Age 61-74 Arthroscopic surgery Major open surgery (> 45 min) Laparoscopic surgery (> 45 min) Malignancy Confined to bed (> 72 hours) Immobilizing plaster cast Central venous access Age >= 75 History of VTE Family history of VTE Factor V Leiden Prothrombin [id number] Lupus anticoagulant Anticardiolipin antibodies Elevated serum homocysteine Heparin-induced thrombocytopenia Other congenital or acquired thrombophilia Stroke (< 1 month) Elective arthroplasty Hip, pelvis, or leg fracture Acute spinal cord injury (< 1 month) Prophylaxis Regimen Total Risk Factor Score Risk Level Prophylaxis Regimen 0-1 Low Early ambulation 2 Moderate Order ONE of the following: *Sequential Compression Device (SCD) *Heparin 5000 units SQ BID 3-4 Higher Order ONE of the following medications: *Heparin 5000 units SQ TID *Enoxaparin/Lovenox 40 mg SQ daily (WT < 150 kg, CrCl > 30 mL/min) *Enoxaparin/Lovenox 30 mg SQ daily (WT < 150 kg, CrCl > 10-29 mL/min) *Enoxaparin/Lovenox 30 mg SQ BID (WT < 150 kg, CrCl > 30 mL/min) AND/OR *Sequential Compression Device (SCD) 5 or more Highest Order ONE of the following medications: *Heparin 5000 units SQ TID (Preferred with Epidurals) *Enoxaparin/Lovenox 40 mg SQ daily (WT < 150 kg, CrCl > 30 mL/min) *Enoxaparin/Lovenox 30 mg SQ daily (WT < 150 kg, CrCl > 10-29 mL/min) *Enoxaparin/Lovenox 30 mg SQ BID (WT < 150 kg, CrCl > 30 mL/min) AND *Sequential Compression Device (SCD) Assessment and Plan Problem List: (1) Tobacco abuse ICD Code: Z72.0 - Tobacco use Status: Chronic (2) Closed sacral fracture ICD Code: S32.10XA - Unspecified fracture of sacrum, initial encounter for closed fracture (3) Cocaine abuse ICD Code: F14.10 - Cocaine abuse, uncomplicated Status: Chronic (4) Amphetamine delirium ICD Code: F15.921 - Other stimulant use, unspecified with intoxication delirium Status: Acute (5) Hyponatremia ICD Code: E87.1 - Hypo-osmolality and hyponatremia Status: Acute (6) Anemia ICD Code: D64.9 - Anemia, unspecified Status: Chronic (7) Thrombocytosis ICD Code: D47.3 - Essential (hemorrhagic) thrombocythemia Status: Acute (8) Polysubstance abuse ICD Code: F19.10 - Other psychoactive substance abuse, uncomplicated Status: Chronic Assessment and Plan NEURO: Acute agitated delirium Polysubstance abuse with acute intoxication Urine drug screen positive for opiates, amphetamines, cocaine, benzodiazepines, cannabinoids Alcohol level, acetaminophen, salicylate, ammonia level not significantly elevated. TSH normal CT brain negative Ativan as needed for agitation Prior pain regimen last admission, which will hold for now until appropriate to administer po: tylenol 650mg po q6h ibuprofen 400mg po q6h tizanidine 4mg po q12h gabapentin 300mg po TID clonidine 0.2mg po q8h lidocaine patch to affected painful area daily RESP: On room air. Protecting airway. CV: Monitor hemodynamic Troponin normal GI: Nothing by mouth FEN/RENAL: Lactic acidemia, resolved Acute mild asymptomatic hyponatremia Voiding. Creatinine and CPK are normal. 0.9 NaCl at 120 mL per hour ID: Bacteriuria UA with moderate bacteria, small leukocyte esterase. Rocephin 1 g IV given in the emergency department. Will continue for now and follow up urine culture Blood cultures pending HEME: Chronic anemia Thrombocytosis Monitor CBC ENDO: Euglycemic. TSH normal. PROPH: SCDs for DVT prophylaxis. Lovenox for him a grams subcutaneous daily for DVT prophylaxis. Famotidine for stress ulcer prophylaxis. ACCESS: Peripheral IV providing adequate access at this time Full code Level II H&P Problem Qualifiers (1) Closed sacral fracture: Cami Berger MD Jun 14, 2017 04:45
[2017-06-14] MEDS ORDERED: HEPARIN SODIUM - SQ 10,000 UNITS/ML VIAL SQ SCH (05:15)
[2017-06-14] MEDS ORDERED: MISCELLANEOUS NURSING INFORMATION XX SCH (05:15)
[2017-06-14] MEDS ORDERED: ONDANSETRON HCL 4 MG/2 ML VIAL IV PUSH PRN (05:15)
[2017-06-14] MEDS ORDERED: SENNOSIDES 8.6 MG TAB PO PRN (05:15)
[2017-06-14] MEDS ORDERED: CHLORHEXIDINE GLUCONATE 2 % 1 PACK (2 CLOTHS) TOP PRN (05:15)
[2017-06-14] MEDS ORDERED: SODIUM CHLORIDE 0.9% FLUSH 10 ML FLUSH IV FLUSH PRN (05:15)
[2017-06-14] MEDS ORDERED: MAGNESIUM HYDROXIDE SUSP 30 ML CUP PO PRN (05:15)
[2017-06-14] MEDS ORDERED: LACTULOSE SYRUP 20 GM/30 ML CUP PO PRN (05:15)
[2017-06-14] MEDS ORDERED: LORazepam 2 MG/ML VIAL IV PUSH PRN (05:15)
[2017-06-14] MEDS ORDERED: SODIUM CHLOR 0.9% 1000 ML INJ 1,000 ML IV SCH (05:15)
[2017-06-14] MEDS ORDERED: BISACODYL 10 MG SUPP RECTAL PRN (05:15)
[2017-06-14] MEDS ORDERED: RESP: ALBUTEROL 2.5 MG/3 ML NEB (PRN) INH (05:15)
[2017-06-14] MEDS: SODIUM CHLORIDE 0.9% FLUSH 10 ML FLUSH IV FLUSH SCH ×2 (08:21→21:00)
[2017-06-14] MEDS: FAMOTIDINE 20 MG TAB PO SCH ×2 (08:22→21:00)
[2017-06-14] MEDS: FAMOTIDINE 20 MG/2 ML VIAL IV PUSH SCH ×2 (08:22→21:22)
[2017-06-14] MEDS: DOCUSATE SODIUM 50 MG/SENNA 8.6 MG TAB PO SCH ×2 (08:22→21:22)
[2017-06-14] MEDS ORDERED: HALOPERIDOL LACTATE 5 MG/ML AMP IV PUSH ONE (08:45)
[2017-06-14] MEDS: LORazepam 2 MG/ML VIAL IV PUSH PRN (10:33)
[2017-06-14] MEDS: HALOPERIDOL LACTATE 5 MG/ML AMP IV PUSH PRN ×2 (10:33→18:13)
[2017-06-14] MEDS: LABETALOL HCL 100 MG/20 ML VIAL IV PUSH PRN ×2 (10:34→12:26)
[2017-06-14] MEDS: DEXTROSE 5%-LACTATED RING INJ 1,000 ML IV SCH ×2 (10:49→18:36)
--- NOTE | 2017-06-14 12:14 | EKG ---
Date Performed: 06/13/2017 Time Performed: 22:28:36 PTAGE: 56 years EKG: SINUS TACHYCARDIA ABNORMAL RHYTHM ECG Compared to PREVIOUS TRACING , heart rate is faster, otherwise no significant change. PREVIOUS TRACIN 05/26/2017 07.29 DOCTOR: Saran Mixon Interpretating Date/Time 06/14/2017 12:12:44
[2017-06-14] MEDS: cloNIDine HCL 0.3 MG TAB PO SCH ×2 (13:49→17:08)
[2017-06-14] MEDS: DIAZEPAM 5 MG TAB PO SCH ×2 (13:49→21:22)
[2017-06-14] MEDS: ENOXAPARIN SODIUM 40 MG/0.4 ML SYRINGE SQ SCH (13:49)
[2017-06-14] MEDS: ACETAMINOPHEN 325 MG TAB PO PRN (18:14)
[2017-06-14] MEDS: cefTRIAXone INJ 1,000 MG in SODIUM CHLORIDE 0.9% INJ 100 ML IV SCH (21:22)
[2017-06-15] VITALS (12 sets, daily range): BP systolic 117–171; BP diastolic 60–111; PULSE 54–80; RESP 18–28; TEMP 97.5–98.7; O2SAT 95–99
[2017-06-15] MEDS: DEXTROSE 5%-LACTATED RING INJ 1,000 ML IV SCH ×3 (01:14→17:47)
[2017-06-15] MEDS: cloNIDine HCL 0.3 MG TAB PO SCH ×3 (01:14→17:45)
[2017-06-15] MEDS: LORazepam 2 MG/ML VIAL IV PUSH PRN ×2 (01:40→08:30)
[2017-06-15] MEDS: CHLORHEXIDINE GLUCONATE 2 % 1 PACK (2 CLOTHS) TOP SCH (04:00)
[2017-06-15 04:28] LABS: ALBUMIN 2.4 GM/DL (3.4-5.0); ALKALINE PHOSPHATASE 183 U/L (45-117); ALT (GPT) 11 U/L (10-53); AST (GOT) 21 U/L (15-37); BICARBONATE 24.8 MEQ/L (21.0-32.0); CALCIUM 8.7 MG/DL (8.5-10.1); CHLORIDE 106 MEQ/L (98-107); CREATININE 0.47 MG/DL (0.50-1.00); GLOMERULAR FILTRATION RATE 138 ML/MIN (>89); GLUCOSE,RANDOM 143 MG/DL (74-106); SODIUM (NA) 137 MEQ/L (136-145); TOTAL BILIRUBIN ADULT 0.1 MG/DL (0.2-1.0); TOTAL PROTEIN 7.1 GM/DL (6.4-8.2)
[2017-06-15 04:29] LABS: BLOOD UREA NITROGEN 5 MG/DL (7-18)
[2017-06-15 05:06] LABS: AUTOMATED NEUTROPHIL # 1.8 TH/MM3 (1.8-7.7); BASOPHIL % 0.4 % (0.0-2.0); EOSINOPHIL # 0.2 TH/MM3 (0-0.4); EOSINOPHIL % 3.5 % (0.0-4.0); HEMATOCRIT 28.1 % (35.0-46.0); HEMOGLOBIN 9.4 GM/DL (11.6-15.3); LYMPH % 45.5 % (9.0-44.0); LYMPHOCYTE # 2.1 TH/MM3 (1.0-4.8); MEAN CELL VOLUME 76.7 FL (80.0-100.0); MEAN CORPUSCULAR HEMOGLOBIN 25.6 PG (27.0-34.0); MEAN CORPUSCULAR HGB CONC 33.3 % (32.0-36.0); MEAN PLATELET VOLUME 6.6 FL (7.0-11.0); MONOCYTE # 0.5 TH/MM3 (0-0.9); NEUT % 39.6 % (16.0-70.0); PLATELET COUNT 538 TH/MM3 (150-450); RED BLOOD COUNT 3.67 MIL/MM3 (4.00-5.30); RED CELL DISTRIBUTION WIDTH 18.3 % (11.6-17.2); WHITE BLOOD COUNT 4.6 TH/MM3 (4.0-11.0)
[2017-06-15] MEDS: DIAZEPAM 5 MG TAB PO SCH ×3 (05:10→21:50)
[2017-06-15] MEDS: HALOPERIDOL LACTATE 5 MG/ML AMP IV PUSH PRN (08:30)
[2017-06-15] MEDS: FAMOTIDINE 20 MG TAB PO SCH ×2 (09:00→21:49)
[2017-06-15] MEDS: DOCUSATE SODIUM 50 MG/SENNA 8.6 MG TAB PO SCH ×2 (09:00→21:50)
[2017-06-15] MEDS: FAMOTIDINE 20 MG/2 ML VIAL IV PUSH SCH ×2 (09:00→21:00)
[2017-06-15] MEDS: SODIUM CHLORIDE 0.9% FLUSH 10 ML FLUSH IV FLUSH SCH ×2 (09:00→21:50)
[2017-06-15] MEDS: ENOXAPARIN SODIUM 40 MG/0.4 ML SYRINGE SQ SCH (13:02)
--- NOTE | 2017-06-15 15:24 | HHI.PR ---
Subjective Remarks Patient sleeping comfortably in bed, woke up to voice Complaint of back pain, afebrile uneventful overnight Objective Vitals Vital Signs Date Time Temp Pulse Resp B/P (MAP) Pulse Ox O2 Delivery O2 Flow Rate FiO2 06/15/17 14:00 57 06/15/17 12:00 98.7 62 22 171/111 (131) 95 06/15/17 12:00 62 06/15/17 10:00 61 06/15/17 08:00 98.0 80 24 160/80 (106) 95 06/15/17 08:00 80 06/15/17 06:00 77 06/15/17 04:00 59 06/15/17 04:00 97.5 59 28 155/77 (103) 98 06/15/17 02:00 62 06/15/17 00:00 97.7 64 28 155/82 (106) 99 06/15/17 00:00 64 06/14/17 22:00 63 06/14/17 20:00 97.4 66 27 108/64 (79) 98 06/14/17 20:00 66 06/14/17 18:00 68 06/14/17 16:00 99.1 70 37 113/69 (84) 100 06/14/17 16:00 70 I/O 06/14/17 06/14/17 06/14/17 06/15/17 06/15/17 06/15/17 07:00 15:00 23:00 07:00 15:00 23:00 Intake Total 201 ml 600 ml 1827 ml 1340 ml Output Total 650 ml Balance 201 ml 600 ml 1177 ml 1340 ml Intake Oral 75 ml 240 ml IV Total 201 ml 600 ml 1752 ml 1100 ml Output Urine Total 650 ml Stool Total 0 ml # Voids 4 5 3 Result Diagram: 06/15/17 0426 06/15/17 0347 Objective Remarks GENERAL: This is a 56 years old frail thin disheveled female, sleeping in no apparent distress. CARDIOVASCULAR: Regular rate and rhythm without murmurs, gallops, or rubs. RESPIRATORY: Fair air entry bilaterally. No wheezes, rales, or rhonchi. GASTROINTESTINAL: Abdomen soft, non-tender, nondistended. Normal active bowel sounds MUSCULOSKELETAL: Extremities without clubbing, cyanosis, or edema. NEURO: Sleeping woke up to voice. Moves all ext x4 A/P Assessment and Plan /: Relatively stable, [facility] monitor her BMP Assessment Acute agitated delirium Polysubstance abuse with acute intoxication Lactic acidemia, resolved Acute mild asymptomatic hyponatremia Bacteriuria Chronic anemia Thrombocytosis Plan: UA with moderate bacteria, small leukocyte esterase. Rocephin 1 g IV given in the emergency department. Will continue for now and follow up urine culture Blood cultures pending Voiding. Creatinine and CPK are normal. 0.9 NaCl at 120 mL per hour Urine drug screen positive for opiates, amphetamines, cocaine, benzodiazepines, cannabinoids Alcohol level, acetaminophen, salicylate, ammonia level not significantly elevated. TSH normal CT brain negative Ativan as needed for agitation Prior pain regimen last admission, which will hold for now until appropriate to administer po: tylenol 650mg po q6h ibuprofen 400mg po q6h tizanidine 4mg po q12h gabapentin 300mg po TID clonidine 0.2mg po q8h lidocaine patch to affected painful area daily PROPH: SCDs for DVT prophylaxis. Lovenox for him a grams subcutaneous daily for DVT prophylaxis. Famotidine for stress ulcer prophylaxis. ACCESS: Peripheral IV providing adequate access at this time Corie Holloway MD Jun 15, 2017 15:24
[2017-06-15] MEDS: hydrALAZINE HCL 20 MG/ML VIAL IV PUSH PRN (15:36)
[2017-06-15] MEDS: cefTRIAXone INJ 1,000 MG in SODIUM CHLORIDE 0.9% INJ 100 ML IV SCH (21:50)
[2017-06-16] VITALS (12 sets, daily range): BP systolic 99–164; BP diastolic 57–85; PULSE 53–79; RESP 16–20; TEMP 97.9–98.9; O2SAT 98–100
[2017-06-16] MEDS: ACETAMINOPHEN 325 MG TAB PO PRN ×4 (01:37→22:56)
[2017-06-16] MEDS: cloNIDine HCL 0.3 MG TAB PO SCH ×3 (01:37→17:23)
[2017-06-16] MEDS: DEXTROSE 5%-LACTATED RING INJ 1,000 ML IV SCH ×3 (01:39→17:25)
[2017-06-16] MEDS: hydrALAZINE HCL 20 MG/ML VIAL IV PUSH PRN ×2 (02:46→22:28)
[2017-06-16] MEDS: CHLORHEXIDINE GLUCONATE 2 % 1 PACK (2 CLOTHS) TOP SCH (04:00)
[2017-06-16] MEDS: DIAZEPAM 5 MG TAB PO SCH ×3 (05:51→21:01)
[2017-06-16] MEDS: LORazepam 2 MG/ML VIAL IV PUSH PRN ×2 (08:24→17:24)
[2017-06-16] MEDS: DOCUSATE SODIUM 50 MG/SENNA 8.6 MG TAB PO SCH ×2 (08:24→21:00)
[2017-06-16] MEDS: FAMOTIDINE 20 MG TAB PO SCH ×2 (08:24→21:01)
[2017-06-16] MEDS: FAMOTIDINE 20 MG/2 ML VIAL IV PUSH SCH ×2 (08:26→21:00)
[2017-06-16] MEDS: SODIUM CHLORIDE 0.9% FLUSH 10 ML FLUSH IV FLUSH SCH ×2 (08:34→21:01)
--- NOTE | 2017-06-16 15:06 | HHI.PR ---
Subjective Remarks Patient resting in bed, her sister requesting transfer care to Dr. Bang who is her primary care physician because they want to discuss further issue postdischarge Objective Vitals Vital Signs Date Time Temp Pulse Resp B/P (MAP) Pulse Ox O2 Delivery O2 Flow Rate FiO2 06/16/17 12:00 68 06/16/17 12:00 98.8 73 20 159/80 (106) 100 06/16/17 10:00 68 06/16/17 09:31 20 06/16/17 08:00 98.3 69 17 145/71 (95) 100 06/16/17 08:00 67 06/16/17 06:00 79 06/16/17 04:00 98.0 68 18 99/57 (71) 98 06/16/17 04:00 68 06/16/17 02:00 61 06/16/17 00:00 98.1 62 17 163/85 (111) 100 06/16/17 00:00 62 06/15/17 22:00 54 06/15/17 20:00 66 06/15/17 20:00 98.5 66 18 120/67 (84) 99 06/15/17 18:00 74 06/15/17 16:00 98.0 70 24 117/60 (79) 95 06/15/17 16:00 70 I/O 06/15/17 06/15/17 06/15/17 06/16/17 06/16/17 06/16/17 06:59 14:59 22:59 06:59 14:59 22:59 Intake Total 1340 ml 3183 ml 240 ml Output Total 1800 ml 1500 ml Balance 1340 ml 1383 ml -1260 ml Intake Oral 240 ml 600 ml 240 ml IV Total 1100 ml 1983 ml Packed Cells 600 ml Output Urine Total 1800 ml 1500 ml # Voids 3 # Bowel Movements 0 Result Diagram: 06/15/17 0426 06/15/17 0347 Objective Remarks GENERAL: This is a 56 years old frail thin disheveled female, sleeping in no apparent distress. CARDIOVASCULAR: Regular rate and rhythm without murmurs, gallops, or rubs. RESPIRATORY: Fair air entry bilaterally. No wheezes, rales, or rhonchi. GASTROINTESTINAL: Abdomen soft, non-tender, nondistended. Normal active bowel sounds MUSCULOSKELETAL: Extremities without clubbing, cyanosis, or edema. NEURO: Sleeping woke up to voice. Moves all ext x4 A/P Assessment and Plan 06/15: Relatively stable[facility] monitor [facility] BMP 06/16: Patient has a family (sister) requested to transfer her care to Dr. Bang , they stated they already discussed with him and he asked for that Assessment Acute agitated delirium Polysubstance abuse with acute intoxication Lactic acidemia, resolved Acute mild asymptomatic hyponatremia Bacteriuria Chronic anemia Thrombocytosis Plan: UA with moderate bacteria, small leukocyte esterase. Rocephin 1 g IV given in the emergency department. Will continue for now and follow up urine culture Blood cultures pending Voiding. Creatinine and CPK are normal. 0.9 NaCl at 120 mL per hour Urine drug screen positive for opiates, amphetamines, cocaine, benzodiazepines, cannabinoids Alcohol level, acetaminophen, salicylate, ammonia level not significantly elevated. TSH normal CT brain negative Ativan as needed for agitation Prior pain regimen last admission, which will hold for now until appropriate to administer po: tylenol 650mg po q6h ibuprofen 400mg po q6h tizanidine 4mg po q12h gabapentin 300mg po TID clonidine 0.2mg po q8h lidocaine patch to affected painful area daily PROPH: SCDs for DVT prophylaxis. Lovenox for him a grams subcutaneous daily for DVT prophylaxis. Famotidine for stress ulcer prophylaxis. ACCESS: Peripheral IV providing adequate access at this time Corie Holloway MD Jun 16, 2017 15:06
[2017-06-16] MEDS: ENOXAPARIN SODIUM 40 MG/0.4 ML SYRINGE SQ SCH (15:49)
[2017-06-16] MEDS: cefTRIAXone INJ 1,000 MG in SODIUM CHLORIDE 0.9% INJ 100 ML IV SCH (21:02)
[2017-06-17] VITALS (11 sets, daily range): BP systolic 123–171; BP diastolic 65–84; PULSE 52–83; RESP 18–20; TEMP 97.3–98.2; O2SAT 99–100
[2017-06-17] MEDS: cloNIDine HCL 0.3 MG TAB PO SCH ×3 (02:00→17:48)
[2017-06-17] MEDS: DEXTROSE 5%-LACTATED RING INJ 1,000 ML IV SCH ×3 (02:27→17:44)
[2017-06-17] MEDS: CHLORHEXIDINE GLUCONATE 2 % 1 PACK (2 CLOTHS) TOP SCH (04:00)
[2017-06-17] MEDS: ACETAMINOPHEN 325 MG TAB PO PRN ×3 (05:16→22:08)
[2017-06-17] MEDS: DIAZEPAM 5 MG TAB PO SCH ×3 (05:17→21:57)
[2017-06-17] MEDS: FAMOTIDINE 20 MG TAB PO SCH ×2 (08:50→21:57)
[2017-06-17] MEDS: SODIUM CHLORIDE 0.9% FLUSH 10 ML FLUSH IV FLUSH SCH ×2 (08:51→22:08)
[2017-06-17] MEDS: DOCUSATE SODIUM 50 MG/SENNA 8.6 MG TAB PO SCH ×2 (08:51→21:00)
[2017-06-17] MEDS: FAMOTIDINE 20 MG/2 ML VIAL IV PUSH SCH ×2 (08:51→21:00)
[2017-06-17] MEDS: ENOXAPARIN SODIUM 40 MG/0.4 ML SYRINGE SQ SCH (14:15)
[2017-06-17] MEDS: cefTRIAXone INJ 1,000 MG in SODIUM CHLORIDE 0.9% INJ 100 ML IV SCH (21:59)
[2017-06-18 00:43] VITALS: BP 134/70; PULSE 67; RESP 18; TEMP 97.6; O2SAT 100
[2017-06-18] MEDS: DEXTROSE 5%-LACTATED RING INJ 1,000 ML IV SCH ×2 (00:50→08:16)
[2017-06-18 01:57] VITALS: BP 150/73; PULSE 61; O2SAT 99
[2017-06-18] MEDS: cloNIDine HCL 0.3 MG TAB PO SCH (01:59)
[2017-06-18 03:45] VITALS: PULSE 56
[2017-06-18] MEDS: CHLORHEXIDINE GLUCONATE 2 % 1 PACK (2 CLOTHS) TOP SCH (03:46)
[2017-06-18 06:15] VITALS: BP 126/64; PULSE 62; RESP 18; TEMP 98.1; O2SAT 96
[2017-06-18] MEDS: DIAZEPAM 5 MG TAB PO SCH (06:47)
[2017-06-18] MEDS: ACETAMINOPHEN 325 MG TAB PO PRN (06:47)
[2017-06-18 08:00] VITALS: BP 153/87; PULSE 54; PULSE 63; RESP 16; TEMP 97.4; O2SAT 97
--- NOTE | 2017-06-18 09:47 | HHI.PR ---
Subjective Remarks Patient upset and wants to leave. Wants to smoke Objective Vital Signs Date Time Temp Pulse Resp B/P (MAP) Pulse Ox O2 Delivery O2 Flow Rate FiO2 06/18/17 08:00 54 06/18/17 06:15 98.1 62 18 126/64 (84) 96 06/18/17 03:45 56 06/18/17 01:57 61 150/73 (98) 99 06/18/17 00:43 97.6 67 18 134/70 (91) 100 06/17/17 23:46 52 06/17/17 21:15 97.3 64 18 123/65 (84) 100 06/17/17 19:47 60 06/17/17 16:00 72 06/17/17 15:50 98.2 66 20 148/73 (98) 100 06/17/17 12:00 56 06/17/17 11:50 97.5 54 20 134/75 (94) 100 I/O 06/17/17 06/17/17 06/17/17 06/18/17 06/18/17 06/18/17 07:00 15:00 23:00 07:00 15:00 23:00 Intake Total 581 ml 480 ml Balance 581 ml 480 ml Intake Oral 581 ml 480 ml # Voids 3 2 # Bowel Movements 1 Result Diagram: 06/15/17 0426 06/15/17 0347 Objective Remarks Current Medications Medications (Trade) Dose Ordered Sig/Piper Route Start Time Stop Time Status Last Admin (NS Flush) 2 ml UNSCH PRN IV FLUSH 06/14/17 05:15 (NS Flush) 2 ml BID IV FLUSH 06/14/17 09:00 06/17/17 22:08 (Tylenol) 650 mg Q6H PRN PO 06/14/17 05:15 06/18/17 06:47 (Pepcid Inj) 20 mg Q12HR IV PUSH 06/14/17 09:00 06/14/17 21:22 (Pepcid) 20 mg Q12HR PO 06/14/17 09:00 06/17/17 21:57 (Zofran Inj) 4 mg Q6H PRN IV PUSH 06/14/17 05:15 (Albuterol Neb) 2.5 mg Q2HR NEB PRN INH 06/14/17 05:15 Miscellaneous Information 1 Q361D XX 06/14/17 05:15 06/14/17 05:15 (Chlorhexidine 2% Cloth) 3 pack Taper DAILY@04 TOP 06/15/17 04:00 06/11/18 03:59 06/17/17 04:00 (Chlorhexidine 2% Cloth) 3 pack UNSCH PRN TOP 06/14/17 05:15 (Janice-Colace) 1 tab BID PO 06/14/17 09:00 06/16/17 08:24 (Milk Of Magnesia Liq) 30 ml Q12H PRN PO 06/14/17 05:15 (Senokot) 17.2 mg Q12H PRN PO 06/14/17 05:15 (Dulcolax Supp) 10 mg DAILY PRN RECTAL 06/14/17 05:15 (Lactulose Liq) 30 ml DAILY PRN PO 06/14/17 05:15 (Haldol Inj) 5 mg Q1H PRN IV PUSH 06/14/17 09:45 06/15/17 08:30 (Ativan Inj) 1 mg Q1H PRN IV PUSH 06/14/17 09:45 06/16/17 17:24 Dextrose/Lactated Ringer's 1,000 ml @ 125 mls/hr Q8H IV 06/14/17 09:45 06/18/17 08:16 (Valium) 5 mg Q8HR PO 06/14/17 14:00 06/18/17 06:47 (Catapres) 0.3 mg Q8H PO 06/14/17 10:00 06/18/17 01:59 (Zanaflex) 4 mg Q12HR PO 06/14/17 09:45 06/17/17 21:58 (Trandate Inj) 20 mg Q15M PRN IV PUSH 06/14/17 10:00 06/14/17 12:26 (Apresoline Inj) 10 mg Q30M PRN IV PUSH 06/14/17 10:00 06/16/17 22:28 Ceftriaxone Sodium 1000 mg/ Sodium Chloride 100 ml @ 200 mls/hr Q24H IV 06/14/17 22:00 06/17/17 21:59 (Lovenox Inj) 40 mg Q24H SQ 2/4/18 14:00 06/17/17 14:15 Assessment and Plan Problem List: (1) Polysubstance abuse ICD Codes: F19.10 - Other psychoactive substance abuse, uncomplicated Status: Acute Plan: positive for opiates, amphetamines, cocaine, benzodiazepines, cannabinoids on admission. (2) UTI (urinary tract infection) ICD Codes: N39.0 - Urinary tract infection, site not specified Status: Acute Plan: Rocephin given, urine grew Enterococcus Faecalis left ama, prior to sensitivity, Sensitive to Cipro (3) Closed sacral fracture ICD Codes: S32.10XA - Unspecified fracture of sacrum, initial encounter for closed fracture Plan: Tylenol, ibuprofen lidocaine patch Assessment and Plan late entry seen earlier this am, Patient extremely angry, wants to leave, wants to smoke a cigarette. Would not allow assessment. Call received from nurse that patient is leaving AMA 10:30 am. Instructed nurse to have her call office for follow up as she will need antibiotics for ua Antonia Pulliam Jun 18, 2017 09:47
== END 2017-06-18 10:08 | disposition left against medical advice (07) | DRG 894 ==
LOC: NEPC 20:42 → NEDA 06-14 00:24 → HIME 06-14 02:30 → N04A 06-17 03:00
PROVIDERS: ADMIT Family Medicine; ATTEND Family Medicine
DX: F19.121 Other psychoactive substance abuse with intoxication delirium (principal); E87.2 Acidosis; E87.1 Hypo-osmolality and hyponatremia; N39.0 Urinary tract infection, site not specified; B95.2 Enterococcus as the cause of diseases classified elsewhere; I10 Essential (primary) hypertension; F14.10 Cocaine abuse, uncomplicated; D64.9 Anemia, unspecified; R79.89 Other specified abnormal findings of blood chemistry; F17.210 Nicotine dependence, cigarettes, uncomplicated; S32.10XD Unspecified fracture of sacrum, subsequent encounter for fracture with routine healing; Z96.611 Presence of right artificial shoulder joint; Z96.612 Presence of left artificial shoulder joint
CPT/HCPCS: 70450; 71045; 72170; 80053; 80307; 81001; 82140; 82550; 83605; 84443; 84484; 85025; 85610; 85730; 87040; 87077; 87086; 87186; 87641; 93005; 96361; 96365; 96367; 96372; 96375; 96376; J0360; J0696; J1630; J1644; J1650; J2060; J3411; J7030; J7121